=== PATIENT | female | born 1955 | race African-American/Black ===

== ENCOUNTER 2016-11-21 13:28 | Inpatient (IN) ==
[2016-11-21] MEDS ORDERED: metroNIDAZOLE INJ 500 MG in PREMIX 1 EACH IV STA (13:49)
[2016-11-21] MEDS ORDERED: ONDANSETRON ODT 4 MG TABLET PO STA (13:49)
[2016-11-21] MEDS ORDERED: SODIUM CHLORIDE 0.9% 500 ML IV STA (13:49)
[2016-11-21] MEDS ORDERED: MORPHINE 2 MG/1 ML SYRINGE IV STA (13:49)
[2016-11-21] MEDS ORDERED: LEVOFLOXACIN INJ 750 MG in PREMIX 1 EACH IV STA (13:49)
[2016-11-21] MEDS ORDERED: metroNIDAZOLE 500 MG/100 ML PREMIX IV ONE (13:54)
[2016-11-21] MEDS ORDERED: ONDANSETRON ODT 4 MG TABLET PO ONE (13:54)
[2016-11-21] MEDS ORDERED: MORPHINE 2 MG/1 ML SYRINGE ONE (13:55)
[2016-11-21 14:29] LABS: Basophils % 0.3 % (0.0-0.8); Eosinophils # 0.1 10*3/uL (0.0-0.87); Eosinophils % 0.8 % (0.00-10.9); Hematocrit 35.8 VOL% (35.7-47.0); Hemoglobin 12.3 GM/DL (12.0-16.0); Immature Granulocytes % 0.3 %; Immature Granulocytes Absolute 0.02 #; Lymphocytes # 1.2 10*3/uL (1.4-4.0); Mean Corpuscular HGB Conc 34.4 GM/DL (32-36); Mean Corpuscular Hemoglobin 29 PG (27-34); Mean Corpuscular Volume 83.8 FL (87-102); Mean Platelet Volume 9.8 FL (9.6-12.0); Monocytes # 0.9 10*3/uL (0.11-0.8); Monocytes % 10.6 % (1.7-12.7); Neutrophils # 5.9 10*3/uL (1.4-7.4); Platelet Count 233 T/CUMM (130-400); Red Blood Count 4.27 MC/CUMM (3.8-5.5); Red Cell Distribution Width 12.7 % (9.3-17.3)
[2016-11-21 14:40] LABS: Apearance,Urine CLOUDY (Clear); Bacteria,Urine Many /HPF (Few); Bilirubin,Urine Negative (Negative); Blood, Urine Moderate mg/dL (Negative); Glucose,Urine (UA) Negative (Negative); Ketones,Urine Negative (Negative); Nitrite,Urine Negative (Negative); Protein,Urine Negative; RBC,Urine 4 /HPF (0-4); Squamous Epithelial Cell,Urine Occasional /HPF (0-10); Urine Color Yellow (Yellow); Urine Specific Gravity 1.002 (1.001-1.035); Urine Urobilinogen < 2.0 EU/DL (0.2-1.0); WBC,Urine 13 /HPF (0-6)
[2016-11-21] MEDS ORDERED: LEVOFLOXACIN INJ 150 ML IV ONE (15:07)
--- NOTE | 2016-11-21 15:10 | Emergency Department Note ---
Stef Gauthier Brittany, am scribing for, and in the presence of, Alberto Serra MD 13:51. Ponce Gauthier Doug C, MD, personally performed the services described in this documentation, ascribed by Rimma Finch in my presence, and it is both accurate and complete [id number] . Arrival - Arrival Chief Complaint: Abdominal / Flank Pain Stated Complaint: abd pain ED Nursing Triage Note: C/o LLQ pain and N/V-onset 3 days ago. This is patient' s third ER visit in three days for same c/o. States "I just need to be admitted ". Mode of Arrival: Stretcher Limitations: No Limitations Source: Patient, Old Records Reviewed, RN Notes Reviewed Time Seen by Provider: 11/21/16 13:48 - History of Present Illness HPI Narrative: Patient is a 61-year-old white female comes to the emergency room by ambulance with complaint of abdominal pain. This is her third visit in 3 consecutive days with the same complaint. Patient states she has diverticulitis and she needs to be admitted to the hospital. She has not had any fever but states she has had chills. She denies any diarrhea and she has not had any blood in her stool. Patient states she was at work and the pain got so severe it drove her to her knees and they called the ambulance to bring her here. She was seen in nonurgent the 2 previous visits. She has not had any prior abdominal surgeries. She did have a CT scan of her abdomen 2 days ago. Onset (ago): day(s) (3) Consistency: intermittent Severity: moderate Severity scale (1-10): 6 Quality: other ("bubbling") Date of Last Menstrual Period: menopause Allergies/Adverse Reactions: Allergies Allergy/AdvReac Type Severity Reaction Status Date / Time haloperidol [From Haldol] Allergy MOUTH Verified 08/13/16 13:44 TWISTED TO THE SIDE Home Medications: Home Medications Medication Instructions Recorded Confirmed Type Ergocalciferol (Vitamin D2) 50,000 unit PO ALLEN 10/06/15 11/21/16 History [Vitamin D2] Multivitamin [Multivitamins] 1 tablet PO QAM 10/06/15 11/21/16 History Omeprazole Magnesium [Prilosec Otc] 20 mg PO QAM 10/06/15 11/21/16 History Fluticasone/Salmeterol 250-50 1 puff INH BID 02/16/16 11/21/16 History [Advair 250-50] HYDROcodone/ACETAMIN 10-325 [[place] 1 tablet PO Q4H PRN 02/16/16 11/21/16 History 10-325] Naproxen [Naprosyn Tab] 500 mg PO BID PRN 02/16/16 11/21/16 History Albuterol Inhaler [Proventil 2 puff INH Q6H PRN 08/13/16 11/21/16 History Inhaler] Polyethylene Glycol Powder 17 gm PO DAILY 08/13/16 11/21/16 History [Miralax] Promethazine Tab [Phenergan Tab] 25 mg PO Q4H PRN 08/13/16 11/21/16 History hydrOXYzine HCl [Hydroxyzine HCl] 25 mg PO TID PRN 08/13/16 11/21/16 History Ciprofloxacin Tab [Cipro Tab] 500 mg PO BID #20 tablet 11/19/16 11/21/16 Rx metroNIDAZOLE TAB [Flagyl Cap/Tab] 500 mg PO TID #30 tablet 11/19/16 11/21/16 Rx HYDROcodone/ACETAMIN 5-325 [[place] 1 tablet PO Q6H PRN #20 tablet 11/20/16 Rx 5-325] Ondansetron Tab [Zofran Tab] 4 mg PO Q6H #20 tablet 11/20/16 11/21/16 Rx Tizanidine HCl [Tizanidine HCl] 8 mg PO TID PRN 11/20/16 11/21/16 History Review of System - Review of System 12 point system: reviewed and no additional remarkable complaints except as stated - Review of System Constitutional: Present: chills. Absent: fever Eyes: Absent: vision change Head/Ears/Nose/Throat: Absent: nasal drainage, sore throat Respiratory: Absent: respiratory distress Cardiovascular: Absent: chest pain Gastrointestinal: Present: abdominal pain, nausea, vomiting. Absent: diarrhea, constipation, melena, hematochezia Genitourinary female: Absent: dysuria, frequency, urgency Musculoskeletal: Absent: arm pain, back pain, leg pain, neck pain Skin: Absent: rash Neurological: Absent: headache Psychiatric: Absent: anxiety, depression Hematological/Lymphatic: Absent: easy bleeding, easy bruising Medical,Surgical,& Family Hx - Medical History Psychological: History of: Anxiety Disorders, Bipolar Disorder HEENT: History of: Eye Problem (wears glasses), Dental Problems (WEAR UPPER FULL DENTURES) Respiratory: History of: Bronchitis, COPD Renal: History of: Renal Problems (CYST ON LEFT KIDNEY) Genitourinary: History of: Kidney Stones Gastrointestinal: History of: Diverticulitis/ Diverticulosis, GERD, Polyps Musculoskeletal: History of: Back/Neck Problems (BULGING DISC NECK AND BACK), Herniated Disk, Musculoskeletal Problems (SPURS ON SPINE, ARTHRITIS ON SPINE AND HIPS (BILATERAL),) No history of: Amputation Hematology: No history of: Anemia, Bleeding Problems, Clotting Problems, Sickle Cell Disease, Hematologic Cancer, Blood Disorders Other: History of: Miscellaneous Medical Problems (osteoporesis) - Surgical History Cardiac Surgeries: Patient Denies: Femoral-Popliteal Bypass Graft, Cardiac Catheterization, Cardiac Surgery, Carotid Endarterectomy, Internal Defibrillator, Vascular Access Devices Thoracic Surgeries: Patient denies;: Organ Transplant, Lobectomy Neurologic Surgeries: Patient denies: Neurologic Surgery HEENT Surgeries: Patient denies: Carotid Endarterectomy, Eye Surgery, Tonsilectomy & Adenoidectomy Abdominal Surgeries: Surgical HX of: Colonoscopy Patient denies: Abdominal Surgery, Appendectomy, Cholecystectomy, Gastric Bypass Surgery, EGD, Hernia Repair, Splenectomy Reproductive Surgeries: Patient denies;: Breast Surgery, Section, Dilation and Curettage, Genitourinary Surgery, Gynecologic Surgery, Hysterectomy, Tubal Ligation Orthopedic Surgeries: Patient denies;: Implanted Devices, Orthopedic Surgery, Spinal Surgery, Total Hip Replacement, Total Knee Replacement - Family History Family History: Reports;: Family Cancer (sister), Family Diabetes (FATHER), Family Hypertension - Social History Smoking Status: Current every day smoker Frequency of Alcohol Use: None Type of Drug Use: None Exam Vital Signs: Vital Signs Temperature 98.2 F 11/21/16 13:37 Pulse Rate 74 11/21/16 14:13 Respiratory Rate 18 11/21/16 14:13 Blood Pressure 112/74 11/21/16 14:13 O2 Sat by Pulse Oximetry 97 11/21/16 14:13 - General General appearance: alert, in distress (appears to be uncomfortable secondary to pain) - Head Head exam: Present: atraumatic, normocephalic, normal inspection - Eye Eye exam: Present: normal appearance, PERRL, EOMI - ENT ENT exam: Present: normal exam, normal oropharynx - Neck Neck exam: Present: normal inspection, full ROM, trachea midline - Chest Chest inspection: Present: normal inspection, symmetric chest wall rise - Respiratory Respiratory exam: Present: normal lung sounds bilaterally - Cardiovascular Cardiovascular exam: Present: regular rate, normal rhythm, normal heart sounds - Abdominal Exam Abdominal exam: Present: soft, tenderness (diffuse abdominal tenderness to palpation), rebound (rebound tenderness), normal bowel sounds. Absent: distention - Extremities Exam Extremities exam: Present: normal inspection - Back Exam Back exam: Present: normal inspection - Neurological Exam Neurological exam: Present: alert, oriented X3, CN II-XII intact. Absent: motor sensory deficit - Psychiatric Psychiatric exam: Present: normal affect, normal mood - Skin Skin exam: Present: warm, dry Course Course Narrative: Patient's clinical presentation, recent history and laboratory findings and previous radiographic findings were discussed with Rich who is covering for the hospitalist service. He will see the patient emergency room and evaluate for admission. Results - Labs CBC & BMP: 11/21/16 14:12 Lab Results: I have reviewed the patients labs Labs: Laboratory Tests 11/21/16 14:12 WBC 8.0 RBC 4.27 Hgb 12.3 Hct 35.8 MCV 83.8 L MCH 29 MCHC 34.4 RDW 12.7 Plt Count 233 MPV 9.8 Neut % (Auto) 73.0 Lymph % (Auto) 15.0 L [place] % (Auto) 10.6 Eos % (Auto) 0.8 Baso % (Auto) 0.3 Neut # (Auto) 5.9 Lymph # (Auto) 1.2 L [place] # (Auto) 0.9 H Eos # (Auto) 0.1 Baso # (Auto) 0.0 Immature Gran % 0.3 Nucleated RBC % 0.0 Immature Gran # 0.02 Nucleated RBCs # 0.00 Laboratory Tests 11/21/16 11/21/16 14:12 14:12 Lipase 113.0 Urine Color Yellow Urine Appearance Cloudy Urine pH 7.0 Ur Specific [place] 1.002 Urine Protein Negative Urine Glucose (UA) Negative Urine Ketones Negative Urine Blood Moderate Urine Nitrate Negative Urine Bilirubin Negative Urine Urobilinogen < 2.0 H Urine Leukocytes Moderate H Urine RBC 4 Urine WBC 13 Ur Squamous Epith Cells Occasional Urine Bacteria Many Laboratory Tests 11/21/16 14:12 Lactic Acid 1.0 Lipase 113.0 Disposition Clinical Impression: Diverticulitis Case discussed with: patient Disposition: Still a Patient Condition: Stable Time of Disposition: 15:09
[2016-11-21] MEDS ORDERED: MORPHINE 2 MG/1 ML SYRINGE IV PRN (15:47)
--- NOTE | 2016-11-21 16:04 | Hospitalist History & Physical ---
<Derrick Moore - Last Filed: 11/21/16 16:12> Assessment and Plan (1) History of diverticulitis of colon Status: Acute Assessment and plan: Admit for abdominal pain with suspected diverticulitis. Continue IV metronidazole. IV fluids. Obtain sed rate, CRP, renal function panel. Clear liquid diet. PPI therapy. Current Visit: No (2) COPD (chronic obstructive pulmonary disease) Status: Acute Assessment and plan: Continue bronchodilator. Current Visit: No (3) Nausea & vomiting Status: Acute Assessment and plan: IV hydration. Antiemetics. Current Visit: No (4) UTI (urinary tract infection) Status: Acute Assessment and plan: IV Levaquin. Urine cultures pending. Current Visit: Yes History of Present Illness Chief complaint: abdominal pain History of present illness: Ms. Palacios is a 61 year old -[place] female with a past medical history significant for diverticulitis, COPD, arthritis, herniated and bulging disks, GERD, and intestinal polyps who presents to the ED with complaints of abdominal pain x 3 days. The patient reports that she was diagnosed with diverticulitis several years ago and has had a total of 5 acute episodes since 2007. She has been seen in the ER for 3 consecutive nights and was sent home each time until today. She admits that she brought this upon herself by not watching her diet. She notes that on Wednesday she was invited to a friend's home for dinner and ate some corn. She later fried some shrimp in corn meal and also had a bit of lettuce on a sandwich this week. She reports that she has been experiencing left lower quadrant pain since . She was treated with IV Flagyl in the ED and sent home on oral Flagyl and a clear liquid diet. She subsequently reports nausea and vomiting associated with the medication. She admits to having alternating chills and sweats, nausea/vomiting, periumbilical and LLQ pain which she describes as "crampy" and her "stomach balled up in a knot" and rates it as a 10+/10. She states that the pain is so great when she needs to make a BM that she "drops to the floor". The pain subsides after her bowels move. She denies headache, chest pain, numbness/tingling, syncopal episodes, edema. The patient is followed by Dr. Morales (PCP) and Dr. Mitchell Espinosa (GI at [facility]) and last had a colonoscopy in May 2016. She reports an extensive history of polyps including several large polyps that may require surgical resection. She notes that this diverticulitis pain is so great that, if surgery is required, she will agree to it despite her fear of surgeries. Labs on this admission include: WBC 8.0, Hgb 12.3, Hct 35.8, lactic acid 1.0, lipase 113. UA reveals moderate urine leukocytes with UC results to follow. Abdominal CT from 11/19/2016 is consistent with sigmoid colon without perforation or abscess. After discussion with Dr. Polanco, admitting physician, the patient will be admitted to the hospital medicine service for further evaluation and treatment. She is does not have an advanced directive on file, is coherent and serves as her own healthcare proxy. She is a full code. Home medications have been reviewed and reconciled. Home Medications Medication Instructions Recorded Confirmed Type Ergocalciferol (Vitamin D2) 50,000 unit PO ALLEN 10/06/15 11/21/16 History [Vitamin D2] Multivitamin [Multivitamins] 1 tablet PO QAM 10/06/15 11/21/16 History Omeprazole Magnesium [Prilosec Otc] 20 mg PO QAM 10/06/15 11/21/16 History Fluticasone/Salmeterol 250-50 1 puff INH BID 02/16/16 11/21/16 History [Advair 250-50] HYDROcodone/ACETAMIN 10-325 [[place] 1 tablet PO Q4H PRN 02/16/16 11/21/16 History 10-325] Naproxen [Naprosyn Tab] 500 mg PO BID PRN 02/16/16 11/21/16 History Albuterol Inhaler [Proventil 2 puff INH Q6H PRN 08/13/16 11/21/16 History Inhaler] Polyethylene Glycol Powder 17 gm PO DAILY 08/13/16 11/21/16 History [Miralax] Promethazine Tab [Phenergan Tab] 25 mg PO Q4H PRN 08/13/16 11/21/16 History hydrOXYzine HCl [Hydroxyzine HCl] 25 mg PO TID PRN 08/13/16 11/21/16 History Ciprofloxacin Tab [Cipro Tab] 500 mg PO BID #20 tablet 11/19/16 11/21/16 Rx metroNIDAZOLE TAB [Flagyl Cap/Tab] 500 mg PO TID #30 tablet 11/19/16 11/21/16 Rx HYDROcodone/ACETAMIN 5-325 [[place] 1 tablet PO Q6H PRN #20 tablet 11/20/16 Rx 5-325] Ondansetron Tab [Zofran Tab] 4 mg PO Q6H #20 tablet 11/20/16 11/21/16 Rx Tizanidine HCl [Tizanidine HCl] 8 mg PO TID PRN 11/20/16 11/21/16 History Allergies Allergy/AdvReac Type Severity Reaction Status Date / Time haloperidol [From Haldol] Allergy MOUTH Verified 08/13/16 13:44 TWISTED TO THE SIDE Medical,Surgical,& Family Hx - Medical History Psychological: History of: Anxiety Disorders, Bipolar Disorder HEENT: History of: Eye Problem (wears glasses), Dental Problems (WEAR UPPER FULL DENTURES) Respiratory: History of: Bronchitis, COPD Renal: History of: Renal Problems (CYST ON LEFT KIDNEY) Genitourinary: History of: Kidney Stones Gastrointestinal: History of: Diverticulitis/ Diverticulosis, GERD, Polyps Musculoskeletal: History of: Back/Neck Problems (BULGING DISC NECK AND BACK), Herniated Disk, Musculoskeletal Problems (SPURS ON SPINE, ARTHRITIS ON SPINE AND HIPS (BILATERAL),) No history of: Amputation Hematology: No history of: Anemia, Bleeding Problems, Clotting Problems, Sickle Cell Disease, Hematologic Cancer, Blood Disorders Other: History of: Miscellaneous Medical Problems (osteoporesis) - Surgical History Cardiac Surgeries: Patient Denies: Femoral-Popliteal Bypass Graft, Cardiac Catheterization, Cardiac Surgery, Carotid Endarterectomy, Internal Defibrillator, Vascular Access Devices Thoracic Surgeries: Patient denies;: Organ Transplant, Lobectomy Neurologic Surgeries: Patient denies: Neurologic Surgery HEENT Surgeries: Patient denies: Carotid Endarterectomy, Eye Surgery, Tonsilectomy & Adenoidectomy Abdominal Surgeries: Surgical HX of: Colonoscopy Patient denies: Abdominal Surgery, Appendectomy, Cholecystectomy, Gastric Bypass Surgery, EGD, Hernia Repair, Splenectomy Reproductive Surgeries: Patient denies;: Breast Surgery, Section, Dilation and Curettage, Genitourinary Surgery, Gynecologic Surgery, Hysterectomy, Tubal Ligation Orthopedic Surgeries: Patient denies;: Implanted Devices, Orthopedic Surgery, Spinal Surgery, Total Hip Replacement, Total Knee Replacement - Family History Family History: Reports;: Family Cancer (sister), Family Diabetes (FATHER), Family Hypertension - Social History Smoking Status: Current every day smoker (8-10 cigarettes daily. Has taken steps with [facility] to stop smoking.) Time spent discussing smoking cessation with patient: 3 to 10 minutes (5 min spent discussing smoking cessation. Patient has initiated conversation with [facility] to take steps towards quitting.) Frequency of Alcohol Use: None Type of Drug Use: None Marital Status: Lives With:: Spouse Functional capacity: independent ambulation - Constitutional Constitutional: Present: chills, excessive sweating. Absent: fatigue, headache( s) - EENT Eyes: Absent: blurry vision, loss of vision Ears: Absent: decreased hearing, ear pain Nose, mouth and throat: Absent: nasal congestion, sinus pressure, sore throat, vertigo - Cardiovascular Cardiovascular: Absent: chest pain at rest, chest pain with activity, claudication, edema - Respiratory Respiratory: Absent: cough, dyspnea, dyspnea on exertion - Gastrointestinal Gastrointestinal: Present: abdominal pain, change in bowel habits, cramping, nausea, vomiting. Absent: diarrhea, melena - Genitourinary Genitourinary: Present: dysuria. Absent: hematuria - Musculoskeletal Musculoskeletal: Present: arthralgias, back pain - Neurological Neurological: Absent: abnormal gait, abnormal speech, confusion, dizziness, numbness, syncope - Psychiatric Psychiatric: Absent: anxiety, depression - Endocrine Endocrine: Absent: cold intolerance, heat intolerance - Hematologic/Lymphatic Hematologic/Lymphatic: Absent: easy bleeding, easy bruising Exam - Constitutional Vitals: Period Temp Pulse Resp BP Sys/Page Pulse Ox Last 24 Hr 98.2 F-98.2 F 74-81 16-18 112-119/70-74 97-97 General appearance: no acute distress, morbidly obese - Head Head exam: Present: normal inspection, normocephalic, atraumatic - Eye Eye exam: Present: EOMI Pupils: Present: SRINIVASAN - ENT ENT exam: Present: normal exam, normal external ear exam - Neck Neck exam: Present: normal inspection. Absent: lymphadenopathy, tenderness, thyromegaly - Respiratory Respiratory exam: Present: clear to auscultation bilaterally. Absent: rales, rhonchi, wheezes - Cardiovascular Cardiovascular exam: Present: regular rate and rhythm. Absent: carotid bruit, gallop, rubs - GI/Abdominal GI/Abdominal exam: Present: normal bowel sounds, distended. Absent: mass, organomegaly, tenderness - Extremities Exam Extremities exam: Present: normal inspection, normal capillary refill. Absent: edema - Neurological Exam Neurological exam: Present: alert, oriented X3, CN II-XII intact, reflexes normal - Psychiatric Psychiatric exam: Present: normal affect, normal mood - Skin Skin exam: Present: normal color, warm, dry Results - Labs CBC & BMP: 11/21/16 14:12 11/21/16 14:12 Lab Results: I have reviewed the past 24 hour labs - Diagnostic Findings Procedure: CT Abdomen and Pelvis: image reviewed by me, report reviewed by me ( diverticulitis) <Mere Polanco - Last Filed: 11/21/16 16:26> History of Present Illness History of present illness: PCP: Dr. Nash Gamez GI: Dr. Mitchell Espinosa Surgery: Dr. Mesa CC: abd pain x 3 days HPI: Pt is a 61 year old female with a history of diverticulosis and 5 episodes of diverticulitis (Last 2 were September 2015 and Jan) who presented to the hospital with a chief complaint of moderate intermittent LLQ and suprapubic intermittent cramping abdominal pain x 3 days. She denies radiation. Pt reports she came to the ER and had a CT scan of abdomen /pelvis suggesting diverticulitis was given IVF, IV pain meds and was started on Flagyl po. She was unable to keep Flagyl ingested due to recurrent nausea and vomiting, so she returned to ER 11/20. She was given a po challenge and passed and sent home. She returned 11/21 due to intractable, nausea, vomiting and worsening abdominal pain. Today, she reports chills without known fever. She does report feeling discomfort when she urinates and increase in pain in her LLQ when she defecates. Last BM was today and she reports a small thin bowel movement. No melena, BRBPR or mucus. She reports decreased appetite. She reports when she noticed she was unable to keep anything down, she decided to come to the ER for further evaluation and treatment. We were asked to admit for further evaluation and treatment. Currently, pt is pain free. PMH: as noted above, plus herniated/ bulging vertebrae, DJD hip and lower back, COPD, osteopenia, endometriosis, post-menopause, insomnia, GERD, multiple colonic polpys, fracture of left 5th digit PSH: Denies MEDS: Advair 250/50 1 puff BID, Vitamin D 50,000 U po qweek, Prilosec 20mg po daily, Pomerene 10/325mg po daily prn pain ALL: Haldol- dystonic reaction FH: Mother- NE; Father- [place]; Sister- female reproductive malignancy SH: 1/2 ppd x 15 years. Denies alcohol or illicit drug use. . Full code Meds reviewed and reconciled. Vitals: 98.2 125/76. 74. 18 99% RA GEN: Pt is awake, alert and oriented x 3, NAD HEENT: PERRL, EOMI, sclera clear, conjunctiva pink, nares patent. No discharge or epistaxis noted. O/P clear with slightly dry oral mucosa NECK: supple, no JVD. No LAD CV: RRR normal S1/S2 no M/R/G LUNGS: CTAB nonlabored ABD: Soft, NT, ND, +BS EXT: Warm no c/c/e NEURO: nonfocal Labs/investigative studies reviewed. A/P: 1. Mild acute diverticulitis 2. Mild clinical dehydration 3. Abdominal pain 4. COPD with ongoing tobacco use 5. GERD Admit to the hospitalist Clear liquid diet and advance as tolerated IV Levaquin and Flagyl IV Morphine/ po Pomerene as needed IVF Check inflammatory markers. Check RFP Resume inhalers. Smoking cessation recommended PPI Recheck labs in am DVT prophylaxis- Lovenox Further plans to follow as clinical course dictates. I will be away several days. One of my associates will follow in my absence. Exam - Constitutional Vitals: Period Temp Pulse Resp BP Sys/Page Pulse Ox Last 24 Hr 97.9 F-98.2 F 69-81 16-18 112-132/70-83 96-99 Results - Labs CBC & BMP: 11/21/16 14:12 11/21/16 14:12
[2016-11-21 16:06] LABS: Albumin 3.8 G/DL (3.4-5.0); Calcium 9.1 MG/DL (8.5-10.1); Osmolality,Calculated 278.4 MOS/KG (273-304); Phosphorous 3.3 MG/DL (2.5-4.9); Potassium 3.6 MMOL/L (3.5-5.1)
[2016-11-21] MEDS: ENOXAPARIN 40 MG/0.4 ML SYRINGE SUBCUT SCH (16:50)
[2016-11-21] MEDS ORDERED: ERGOCALCIFEROL 50,000 UNIT CAPSULE PO SCH (21:00)
[2016-11-21] MEDS: FLUTICASONE/SALMETEROL 250-50 DISKUS 14 DOSE INH SCH (21:39)
[2016-11-21] MEDS: ONDANSETRON 4 MG/2 ML VIAL IV PRN (21:40)
[2016-11-21] MEDS: metroNIDAZOLE INJ 500 MG in PREMIX 1 EACH IV SCH (22:02)
[2016-11-22] MEDS: ONDANSETRON 4 MG/2 ML VIAL IV PRN ×2 (03:46→20:12)
[2016-11-22] MEDS: metroNIDAZOLE INJ 500 MG in PREMIX 1 EACH IV SCH ×3 (05:14→21:59)
[2016-11-22 06:10] LABS: Albumin 3.3 G/DL (3.4-5.0); Calcium 8.6 MG/DL (8.5-10.1); Osmolality,Calculated 280.3 MOS/KG (273-304); Phosphorous 3.4 MG/DL (2.5-4.9); Potassium 4.1 MMOL/L (3.5-5.1)
--- NOTE | 2016-11-22 07:44 | Hospitalist Progress Note ---
Assessment and Plan (1) Diverticulitis Status: Acute Current Visit: Yes Qualifiers: Diverticulitis site: large intestine Diverticulitis bleeding: without bleeding Diverticulitis complication: without perforation or abscess Qualified Code(s): K57.32 - Diverticulitis of large intestine without perforation or abscess without bleeding (2) Bipolar 1 disorder Status: Chronic Current Visit: No (3) COPD (chronic obstructive pulmonary disease) Status: Chronic Assessment and plan: -Make the patient n.p.o. this morning due to persistent vomiting -Continue current antibiotics with Flagyl and Levaquin -Surgery consult for assistance with management, will follow the recommendations Current Visit: No Qualifiers: COPD type: unspecified COPD Qualified Code(s): J44.9 - Chronic obstructive pulmonary disease, unspecified Hospitalist: Subjective Interval history: The patient is a 61-year-old female admitted to the hospital with acute diverticulitis that is unresponsive to outpatient antibiotic therapy. The patient reports her abdominal pain has improved this morning. However, she continues to complain of nausea and vomiting today. She denies any chest pain, melena or diarrhea. Exam - Constitutional Vitals: Period Temp Pulse Resp BP Sys/Page Pulse Ox Last 24 Hr 97.1 F-98.7 F 69-81 16-22 100-152/56-83 94-99 General appearance: morbidly obese - Head Head exam: Present: normal inspection, normocephalic - Eye Eye exam: Present: EOMI Pupils: Present: SRINIVASAN - ENT ENT exam: Present: normal exam, normal oropharynx - Neck Neck exam: Present: normal inspection - Respiratory Respiratory exam: Present: clear to auscultation bilaterally. Absent: rales, rhonchi, wheezes - Cardiovascular Cardiovascular exam: Present: regular rate and rhythm. Absent: irregular rhythm , systolic murmur, tachycardia - GI/Abdominal GI/Abdominal exam: Present: hypoactive bowel sounds, tenderness (Tenderness of the left lower quadrant, no guarding noted), soft - Extremities Exam Extremities exam: Present: normal inspection. Absent: edema - Neurological Exam Neurological exam: Present: alert, oriented X3 - Psychiatric Psychiatric exam: Present: normal affect, normal mood - Skin Skin exam: Present: normal color Results - Labs CBC & BMP: 11/21/16 14:12 11/22/16 05:24 Lab Results: I have reviewed the past 24 hour labs
[2016-11-22] MEDS ORDERED: HYDROmorphone 2 MG/1 ML VIAL IV PRN (08:18)
--- NOTE | 2016-11-22 09:11 | General Surgery Consult Note ---
Assessment and Plan (1) Diverticulitis Status: Acute Assessment and plan: This patient has recurrent uncomplicated diverticulitis of the descending and sigmoid colon. I agree with current antibiotics and management. The patient will benefit from elective resection after she has recovered from her acute illness. I will continue to follow her while she is here and if we can clear up this current infection I had like to try to delay her operation for about 6 weeks to let all the inflammation calm down make it more likely that she will be able to be hooked back up and not have a colostomy. This was discussed in detail with the patient. Current Visit: Yes Qualifiers: Diverticulitis site: large intestine Diverticulitis bleeding: without bleeding Diverticulitis complication: without perforation or abscess Qualified Code(s): K57.32 - Diverticulitis of large intestine without perforation or abscess without bleeding History of Present Illness Chief complaint: Abdominal pain History of present illness: Ms. Palacios is a 61 year old female with a history of recurrent descending and sigmoid diverticulitis admitted to the hospital with recurrence of her left lower quadrant abdominal pain. She has been having pain for several days and went home from the ER on several occasions but eventually got admitted when she represented by ambulance. She has no fever and her white blood cell count is normal but her CT scan shows some thickening in her mesentery and inflammation around her sigmoid colon. She has no perforation or abscess. Her last episode was in January 2016. She had a colonoscopy done at [facility] in May which showed a lot of polyp disease but no malignancy per the patient. Home Medications Medication Instructions Recorded Confirmed Type Ergocalciferol (Vitamin D2) 50,000 unit PO ALLEN 10/06/15 11/21/16 History [Vitamin D2] Multivitamin [Multivitamins] 1 tablet PO QAM 10/06/15 11/21/16 History Omeprazole Magnesium [Prilosec Otc] 20 mg PO QAM 10/06/15 11/21/16 History Fluticasone/Salmeterol 250-50 1 puff INH BID 02/16/16 11/21/16 History [Advair 250-50] HYDROcodone/ACETAMIN 10-325 [[place] 1 tablet PO Q4H PRN 02/16/16 11/21/16 History 10-325] Naproxen [Naprosyn Tab] 500 mg PO BID PRN 02/16/16 11/21/16 History Albuterol Inhaler [Proventil 2 puff INH Q6H PRN 08/13/16 11/21/16 History Inhaler] Polyethylene Glycol Powder 17 gm PO DAILY 08/13/16 11/21/16 History [Miralax] Promethazine Tab [Phenergan Tab] 25 mg PO Q4H PRN 08/13/16 11/21/16 History hydrOXYzine HCl [Hydroxyzine HCl] 25 mg PO TID PRN 08/13/16 11/21/16 History metroNIDAZOLE TAB [Flagyl Cap/Tab] 500 mg PO TID #30 tablet 11/19/16 11/21/16 Rx HYDROcodone/ACETAMIN 5-325 [[place] 1 tablet PO Q6H PRN #20 tablet 11/20/16 Rx 5-325] Ondansetron Tab [Zofran Tab] 4 mg PO Q6H #20 tablet 11/20/16 11/21/16 Rx Tizanidine HCl [Tizanidine HCl] 8 mg PO TID PRN 11/20/16 11/21/16 History Allergies Allergy/AdvReac Type Severity Reaction Status Date / Time ciprofloxacin Allergy HIVES Verified 11/21/16 16:29 haloperidol [From Haldol] Allergy MOUTH Verified 08/13/16 13:44 TWISTED TO THE SIDE Medical,Surgical,& Family Hx - Medical History Psychological: History of: Anxiety Disorders, Bipolar Disorder HEENT: History of: Eye Problem (wears glasses), Dental Problems (WEAR UPPER FULL DENTURES) Respiratory: History of: Bronchitis, COPD Renal: History of: Renal Problems (CYST ON LEFT KIDNEY) Genitourinary: History of: Kidney Stones Gastrointestinal: History of: Diverticulitis/ Diverticulosis, GERD, Polyps Musculoskeletal: History of: Back/Neck Problems (BULGING DISC NECK AND BACK), Herniated Disk, Musculoskeletal Problems (SPURS ON SPINE, ARTHRITIS ON SPINE AND HIPS (BILATERAL),) No history of: Amputation Hematology: No history of: Anemia, Bleeding Problems, Clotting Problems, Sickle Cell Disease, Hematologic Cancer, Blood Disorders Other: History of: Miscellaneous Medical Problems (osteoporesis) - Surgical History Cardiac Surgeries: Patient Denies: Femoral-Popliteal Bypass Graft, Cardiac Catheterization, Cardiac Surgery, Carotid Endarterectomy, Internal Defibrillator, Vascular Access Devices Thoracic Surgeries: Patient denies;: Organ Transplant, Lobectomy Neurologic Surgeries: Patient denies: Neurologic Surgery HEENT Surgeries: Patient denies: Carotid Endarterectomy, Eye Surgery, Tonsilectomy & Adenoidectomy Abdominal Surgeries: Surgical HX of: Colonoscopy Patient denies: Abdominal Surgery, Appendectomy, Cholecystectomy, Gastric Bypass Surgery, EGD, Hernia Repair, Splenectomy Reproductive Surgeries: Patient denies;: Breast Surgery, Section, Dilation and Curettage, Genitourinary Surgery, Gynecologic Surgery, Hysterectomy, Tubal Ligation Orthopedic Surgeries: Patient denies;: Implanted Devices, Orthopedic Surgery, Spinal Surgery, Total Hip Replacement, Total Knee Replacement - Family History Family History: Reports;: Family Cancer (sister), Family Diabetes (FATHER), Family Hypertension - Social History Smoking Status: Current every day smoker (8-10 cigarettes daily. Has taken steps with [facility] to stop smoking.) Frequency of Alcohol Use: None Type of Drug Use: None - Constitutional Constitutional: Present: as per HPI - EENT Nose, mouth and throat: Present: as per HPI - Cardiovascular Cardiovascular: Present: as per HPI - Respiratory Respiratory: Present: as per HPI - Gastrointestinal Gastrointestinal: Present: as per HPI - Genitourinary Genitourinary: Present: as per HPI - Musculoskeletal Musculoskeletal: Present: as per HPI - Neurological Neurological: Present: as per HPI - Endocrine Endocrine: Present: as per HPI Hematologic/Lymphatic: Present: as per HPI Exam - Constitutional Vitals: Period Temp Pulse Resp BP Sys/Page Pulse Ox Last 24 Hr 97.1 F-98.7 F 67-81 16-22 100-152/56-83 94-99 General appearance: no acute distress, morbidly obese - Head Head exam: Present: normal inspection, normocephalic - Eye Eye exam: Present: EOMI Pupils: Present: SRINIVASAN - ENT ENT exam: Present: normal exam Mouth exam: Present: normal external inspection, normal voice - Neck Neck exam: Present: normal inspection, trachea midline - Respiratory Respiratory exam: Present: clear to auscultation bilaterally. Absent: accessory muscle use, chest wall tenderness - Cardiovascular Cardiovascular exam: Present: RRR. Absent: systolic murmur, tachycardia - GI/Abdominal GI/Abdominal exam: Present: normal bowel sounds, tenderness (Focal tenderness in the left lower quadrant. No peritoneal signs.), soft. Absent: rebound - Extremities Exam Extremities exam: Present: normal inspection, normal capillary refill - Back Exam Back exam: Present: normal inspection - Neurological Exam Neurological exam: Present: alert, oriented X3 Speech: Present: normal - Skin Skin exam: Present: normal color, warm Results - Labs CBC & BMP: 11/21/16 14:12 11/22/16 05:24 - Diagnostic Findings Procedure: CT Abdomen and Pelvis: image reviewed by me, report reviewed by me ( Acute sigmoid diverticulitis with no abscess or free air)
[2016-11-22] MEDS: SODIUM CHLORIDE 0.9% 1,000 ML IV SCH ×2 (09:39→20:11)
[2016-11-22] MEDS: PANTOPRAZOLE 40 MG TABLET PO SCH (09:40)
[2016-11-22] MEDS: FLUTICASONE/SALMETEROL 250-50 DISKUS 14 DOSE INH SCH ×2 (09:41→20:15)
[2016-11-22] MEDS: cefTRIAXone 1,000 MG in SODIUM CHLORIDE 0.9% 100 ML IV SCH (11:52)
[2016-11-22] MEDS ORDERED: LEVOFLOXACIN INJ 500 MG in PREMIX 1 EACH IV SCH (15:00)
[2016-11-22] MEDS: ENOXAPARIN 40 MG/0.4 ML SYRINGE SUBCUT SCH (15:16)
[2016-11-23] MEDS: ONDANSETRON 4 MG/2 ML VIAL IV PRN ×3 (02:33→16:29)
[2016-11-23] MEDS: SODIUM CHLORIDE 0.9% 1,000 ML IV SCH ×3 (05:40→21:35)
[2016-11-23] MEDS: metroNIDAZOLE INJ 500 MG in PREMIX 1 EACH IV SCH (05:41)
[2016-11-23] MEDS: FLUTICASONE/SALMETEROL 250-50 DISKUS 14 DOSE INH SCH ×2 (08:38→20:15)
[2016-11-23] MEDS: PANTOPRAZOLE 40 MG TABLET PO SCH (08:38)
[2016-11-23] MEDS: cefTRIAXone 1,000 MG in SODIUM CHLORIDE 0.9% 100 ML IV SCH (08:38)
--- NOTE | 2016-11-23 08:38 | Hospitalist Progress Note ---
Assessment and Plan (1) Diverticulitis Status: Acute Assessment and plan: Impression: 1. Diverticulitis Plan: Continue current care. She is going to avoid opioids and see if her nausea improves. Continue liquids for now. Consider discharge in the next day or so. This note was completed using [employer] voice recognition software. There may be director staffing errors as a result. Current Visit: No Qualifiers: Diverticulitis site: large intestine Diverticulitis bleeding: without bleeding Diverticulitis complication: without perforation or abscess Qualified Code(s): K57.32 - Diverticulitis of large intestine without perforation or abscess without bleeding Hospitalist: Subjective Interval history: Follow-up diverticulitis. The patient complains of some back pain and nausea. She thinks that the nausea might be related to the opioids she is using. She reports flatus and stool, but is not yet ready to advance her diet. Her abdominal pain is improved. She does not think that she is ready to go home yet. Exam - Constitutional Vitals: Period Temp Pulse Resp BP Sys/Page Pulse Ox Last 24 Hr 97.2 F-98.5 F 72-89 18-20 92-144/56-80 91-97 Vital signs are noted above. Heart is regular with no murmur or gallop. Lungs are clear with no rales or wheezes. Abdomen is protuberant without significant tenderness or mass. Results - Labs CBC & BMP: 11/21/16 14:12 11/22/16 05:24
[2016-11-23] MEDS ORDERED: tiZANidine 4 MG TABLET PO PRN (08:42)
[2016-11-23] MEDS ORDERED: hydrOXYzine HCL 25 MG TABLET PO PRN (08:42)
[2016-11-23] MEDS ORDERED: NON-FORMULARY MEDICATION (Omeprazole Magnesium [Prilosec Otc] 20 MG) PO SCH (09:00)
[2016-11-23] MEDS: POLYETHYLENE GLYCOL POWDER 17 GM PACK PO SCH (09:25)
[2016-11-23] MEDS ORDERED: POLYETHYLENE GLYCOL POWDER 17 GM PACK PO SCH (09:30)
[2016-11-23] MEDS ORDERED: ALBUTEROL 2.5 MG/3 ML NEB RESP TX PRN (09:30)
--- NOTE | 2016-11-23 11:10 | General Surgery Progress Note ---
Assessment and Plan (1) Diverticulitis Status: Acute Assessment and plan: The patient is having some nausea. She had this difficulty with Flagyl in the past but responded well to Augmentin. I am going to discontinue her IV antibiotics and place her back on Augmentin. Continue to follow in the meantime. I will advance her to a low fiber diet as well. Current Visit: Yes Qualifiers: Diverticulitis site: large intestine Diverticulitis bleeding: without bleeding Diverticulitis complication: without perforation or abscess Qualified Code(s): K57.32 - Diverticulitis of large intestine without perforation or abscess without bleeding Subjective Patient reports: Present: no new complaints, feels better, still having pain, pain is less, nausea, vomiting, afebrile Narrative: The patient had a little bit of emesis yesterday after some liquids but she feels hungry today. She is passing gas and having bowel movements. Exam - Constitutional Vitals: Period Temp Pulse Resp BP Sys/Page Pulse Ox Last 24 Hr 97.2 F-98.5 F 72-85 18-20 92-144/56-80 93-97 General appearance: no acute distress, over weight - Head Head exam: Present: normal inspection, normocephalic - Eye Eye exam: Present: EOMI. Absent: scleral icterus Pupils: Present: SRINIVASAN - ENT ENT exam: Present: normal exam Mouth exam: Present: normal external inspection, normal voice - Neck Neck exam: Present: normal inspection, trachea midline - Respiratory Respiratory exam: Present: clear to auscultation bilaterally. Absent: accessory muscle use, chest wall tenderness - Cardiovascular Cardiovascular exam: Present: RRR. Absent: systolic murmur, tachycardia - GI/Abdominal GI/Abdominal exam: Present: normal bowel sounds, tenderness (Minimal left lower quadrant tenderness less than yesterday.), soft - Extremities Exam Extremities exam: Present: normal inspection, normal capillary refill - Back Exam Back exam: Present: normal inspection - Neurological Exam Neurological exam: Present: alert, oriented X3 Speech: Present: normal - Skin Skin exam: Present: normal color, warm Results - Labs CBC & BMP: 11/21/16 14:12 11/22/16 05:24 Specialty Discharge - Follow Up or Referrals Follow up with: Freddy Mesa MD [Physician] - 2 Weeks
[2016-11-23] MEDS: PROMETHAZINE 25 MG/1 ML VIAL IM PRN ×2 (12:25→20:25)
[2016-11-23] MEDS: AMOXICILLIN/CLAV 875 MG TABLET PO SCH ×2 (12:25→20:15)
[2016-11-23] MEDS: ENOXAPARIN 40 MG/0.4 ML SYRINGE SUBCUT SCH (20:15)
[2016-11-24] MEDS: SODIUM CHLORIDE 0.9% 1,000 ML IV SCH ×3 (05:32→20:57)
--- NOTE | 2016-11-24 07:29 | General Surgery Progress Note ---
Assessment and Plan (1) Diverticulitis Status: Acute Assessment and plan: Continue diet as tolerated. Continue Augmentin. Chest x-ray today for cough with pleuritic-type chest pain posterior chest wall on the left side. Discharge home tomorrow if doing well with Augmentin. The patient will benefit from elective sigmoid colectomy. For recurrent diverticulitis Current Visit: Yes Qualifiers: Diverticulitis site: large intestine Diverticulitis bleeding: without bleeding Diverticulitis complication: without perforation or abscess Qualified Code(s): K57.32 - Diverticulitis of large intestine without perforation or abscess without bleeding Subjective Patient reports: Present: no new complaints, feels better, pain is less, afebrile. Absent: nausea, vomiting Narrative: The patient feels better after switching to Augmentin although she skipped her dose last night she had nothing on her stomach. She feels better this morning and wants to try to eat. She is complaining of some nonproductive cough and left sided posterior chest wall pain. Exam - Constitutional Vitals: Period Temp Pulse Resp BP Sys/Page Pulse Ox Last 24 Hr 97.6 F-99.1 F 73-82 18-20 95-140/55-80 93-97 General appearance: no acute distress, over weight - Head Head exam: Present: normal inspection, normocephalic - Eye Eye exam: Present: EOMI Pupils: Present: SRINIVASAN - ENT ENT exam: Present: normal exam Mouth exam: Present: normal external inspection, normal voice - Neck Neck exam: Present: normal inspection, trachea midline - Respiratory Respiratory exam: Present: clear to auscultation bilaterally. Absent: accessory muscle use, chest wall tenderness - Cardiovascular Cardiovascular exam: Present: RRR. Absent: systolic murmur, tachycardia - GI/Abdominal GI/Abdominal exam: Present: soft. Absent: tenderness, rebound - Extremities Exam Extremities exam: Present: normal inspection, normal capillary refill - Back Exam Back exam: Present: normal inspection - Neurological Exam Neurological exam: Present: alert, oriented X3 Speech: Present: normal - Skin Skin exam: Present: normal color, warm Results - Labs CBC & BMP: 11/21/16 14:12 11/22/16 05:24 Specialty Discharge - Follow Up or Referrals Follow up with: Freddy Mesa MD [Physician] - 12/14/16 2:15 pm
--- NOTE | 2016-11-24 08:21 | XRay Report ---
XR chest 2V Indication: Cough, chest pain Comparison: Chest x-ray dated August 13, 2016 Technique: Frontal and lateral views of the chest. Findings: The cardiomediastinal silhouette is stable in configuration. Chronic change of the lungs without focal consolidation, pleural effusion, or pneumothorax. Visualized osseous and surrounding soft tissue structures appear grossly unchanged. IMPRESSION: Stable chest x-ray without acute cardiopulmonary process demonstrated. PROCEDURE INTERPRETED AT [facility] DEPARTMENT OF RADIOLOGY Final Report Signed by: Dr August Olivarez
[2016-11-24] MEDS: FLUTICASONE/SALMETEROL 250-50 DISKUS 14 DOSE INH SCH ×2 (11:03→21:06)
[2016-11-24] MEDS: PANTOPRAZOLE 40 MG TABLET PO SCH (11:05)
[2016-11-24] MEDS: POLYETHYLENE GLYCOL POWDER 17 GM PACK PO SCH (11:09)
--- NOTE | 2016-11-24 11:11 | Hospitalist Progress Note ---
Assessment and Plan (1) Diverticulitis Status: Acute Assessment and plan: Impression: 1. Diverticulitis Plan: Continue current care. Nausea is better. We will plan on discharge in the morning. This note was completed using [employer] voice recognition software. There may be engineering leader errors as a result. Current Visit: No Qualifiers: Diverticulitis site: large intestine Diverticulitis bleeding: without bleeding Diverticulitis complication: without perforation or abscess Qualified Code(s): K57.32 - Diverticulitis of large intestine without perforation or abscess without bleeding Hospitalist: Subjective Interval history: Follow-up diverticulitis. The patient says that she is finally starting to feel better. She is having less abdominal pain. She is tolerating liquids. She has discussed surgery with Dr. Mesa, and is tentatively looking at partial colon resection next month. Exam - Constitutional Vitals: Period Temp Pulse Resp BP Sys/Page Pulse Ox Last 24 Hr 97.6 F-99.1 F 72-82 18-20 95-140/55-80 93-97 Vital signs are noted above. Heart is regular with no murmur or gallop. Lungs are clear with no rales or wheezes. Abdomen is soft with good bowel sounds and no significant tenderness. This is improved from yesterday. She is awake and alert Results - Labs CBC & BMP: 11/21/16 14:12 11/22/16 05:24 Specialty Discharge - Follow Up or Referrals Follow up with: Freddy Mesa MD [Physician] - 12/14/16 2:15 pm
[2016-11-24] MEDS: AMOXICILLIN/CLAV 875 MG TABLET PO SCH ×2 (11:13→21:06)
[2016-11-24] MEDS: PROMETHAZINE 25 MG/1 ML VIAL IM PRN (12:30)
[2016-11-24] MEDS: ENOXAPARIN 40 MG/0.4 ML SYRINGE SUBCUT SCH (20:56)
[2016-11-25] MEDS: PROMETHAZINE 25 MG/1 ML VIAL IM PRN (01:18)
[2016-11-25] MEDS: SODIUM CHLORIDE 0.9% 1,000 ML IV SCH (05:28)
[2016-11-25 08:07] VITALS: BP 138/86
--- NOTE | 2016-11-25 08:15 | Discharge Summary ---
Hospital Course - Hospital Course Hospital Course: Discharge diagnosis: 1. Acute diverticulitis The patient presented to the hospital for evaluation of abdominal pain. She was found to have acute diverticulitis. She was treated with IV antibiotics and GI rest. She was slow to improve, but eventually did improve, and was able to tolerate a regular diet. She is now being discharged home. She is agreeable with following up with surgery in the next couple of weeks to consider elective partial colectomy. Medication reconciliation has been performed. Regular diet. Activity as tolerated. This note was completed using [employer] voice recognition software. There may be knitting tester errors as a result. Diagnosis - Discharge Diagnosis (1) Diverticulitis Status: Acute Specialty Discharge - Follow Up or Referrals Follow up with: Freddy Mesa MD [Physician] - 12/14/16 2:15 pm Discharge Plan - Discharge Data Disposition: Disch To Home/Self Care Condition at Discharge: Stable Discharge Diet: advance to your usual diet Activity: resume usual activities as tolerated Hygiene: no restrictions Weight Bearing at Discharge: full weight bearing Driving: no restrictions - Discharge Medications New Amoxicillin/Clav Tab [Augmentin Tab] 875 mg PO BID #10 tablet Continue Ergocalciferol (Vitamin D2) [Vitamin D2] 50,000 unit PO ALLEN Omeprazole Magnesium [Prilosec Otc] 20 mg PO QAM Multivitamin [Multivitamins] 1 tablet PO QAM Naproxen [Naprosyn Tab] 500 mg PO BID PRN PRN Reason: ABD PAIN Fluticasone/Salmeterol 250-50 [Advair 250-50] 1 puff INH BID Albuterol Inhaler [Proventil Inhaler] 2 puff INH Q6H PRN PRN Reason: Shortness Of Breath/Wheezing hydrOXYzine HCl [Hydroxyzine HCl] 25 mg PO TID PRN PRN Reason: Itching Promethazine Tab [Phenergan Tab] 25 mg PO Q4H PRN PRN Reason: Nausea/Vomiting HYDROcodone/ACETAMIN 5-325 [[place] 5-325] 1 tablet PO Q6H PRN #20 tablet PRN Reason: Pain Ondansetron Tab [Zofran Tab] 4 mg PO Q6H #20 tablet Polyethylene Glycol Powder [Miralax] 17 gm PO DAILY Tizanidine HCl 8 mg PO TID PRN PRN Reason: MUSCLE SPASMS Changed HYDROcodone/ACETAMIN 10-325 [[place] 10-325] 1 tablet PO Q6HR PRN #20 tablet PRN Reason: Pain Discontinued metroNIDAZOLE TAB [Flagyl Cap/Tab] 500 mg PO TID #30 tablet - Follow Up or Referral Follow Up: Freddy Mesa MD [Physician] - 12/14/16 2:15 pm - Forms/Instructions Exam - Constitutional Vitals: Period Temp Pulse Resp BP Sys/Pgae Pulse Ox Last 24 Hr 96.5 F-98.8 F 74-94 18-20 110-138/61-86 93-96 Vital signs are noted above. Heart is regular with no murmur or gallop. Lungs are clear with no rales or wheezes. Abdomen is obese and soft with only minimal tenderness and good bowel sounds. She is awake and alert DS: Provider Date of admission: 11/21/16 15:42 Primary care physician: . No PCP Attending physician on admission: Mere Polanco MD Consults: 11/21/16 15:52 Consult to Physician [CONS] Routine Comment: recurrent diverticulitis. Pt known to you Consulting Provider: Freddy Mesa Consulting Provider Notified: No When should Consulting Provider be notified: Now Person Notified: Dr Mesa Date Notified: 11/22/16 Time Notified: 07:41 Consult Notification Comment: called cell phone left message Discharging clinician: Oneal Muir MD Expected date of discharge: 11/25/16
[2016-11-25] MEDS: FLUTICASONE/SALMETEROL 250-50 DISKUS 14 DOSE INH SCH (08:23)
[2016-11-25] MEDS: POLYETHYLENE GLYCOL POWDER 17 GM PACK PO SCH (08:23)
[2016-11-25] MEDS: PANTOPRAZOLE 40 MG TABLET PO SCH (08:23)
[2016-11-25] MEDS: AMOXICILLIN/CLAV 875 MG TABLET PO SCH (08:23)
== END 2016-11-25 09:10 | disposition home or self-care (01) | DRG 392 ==
LOC: EDBD → EDUNIT# → N.ED 13:28 → N.EDINP 15:42 → SUATTDRO 15:42 → N.EDINP 16:08 → N.2E 16:16
PROVIDERS: ADMIT Pediatrics; ATTEND Internal Medicine Geriatric Medicine

== ENCOUNTER 2016-11-29 16:51 | Observation (INO) ==
[2016-11-29] MEDS ORDERED: PROMETHAZINE 25 MG/1 ML VIAL IM STA (17:08)
--- NOTE | 2016-11-29 17:16 | Emergency Department Note ---
Stef Gauthier Brittany, am scribing for, and in the presence of, José Miguel Harris MD 17:12. Steven Gauthier Robert M, MD, personally performed the services described in this documentation, ascribed by Rimma Finch in my presence, and it is both accurate and complete 714 . Arrival - Arrival Chief Complaint: Nausea/Vomiting/Diarrhea Stated Complaint: VOMITING ED Nursing Triage Note: Pt returns today for continued vomiting that started on and was seen here yesterday for the same complaint. Mode of Arrival: Wheelchair Limitations: No Limitations Source: Patient, RN Notes Reviewed Time Seen by Provider: 11/29/16 17:07 - History of Present Illness HPI Narrative: Patient is a 61 y/o black female presenting to the ED with c/o persistent N/V which onset November 26. Patient has been seen and evaluated on multiple occasions in the recent weeks for Diverticulitis exacerbation. Patient was notably discharged on November 25 s/p admission for this exacerbation. Patient notes that Nighat she was DC'd with did little to nothing to alleviate N /V displayed on and Wednesday. Patient presented here yesterday for this and was sent home with abx and Reglan, but this has not been able to control N/ V. Patient states that she has not been able to tolerate anything taken in PO, including broth, fluids, and medications. She notes that she is scheduled to have the left lower portion of her colon removed next month. Patient goes on to state that this exacerbation of Diverticulitis has been the worst yet. Confirms LLQ tenderness to palpation. Patient has no other complaint/pain. Onset (ago): day(s) (3) Consistency: constant Allergies/Adverse Reactions: Allergies Allergy/AdvReac Type Severity Reaction Status Date / Time ciprofloxacin Allergy HIVES Verified 11/21/16 16:29 haloperidol [From Haldol] Allergy MOUTH Verified 08/13/16 13:44 TWISTED TO THE SIDE metronidazole [From Flagyl] AdvReac Vomiting Verified 11/28/16 14:00 Home Medications: Home Medications Medication Instructions Recorded Confirmed Type Ergocalciferol (Vitamin D2) 50,000 unit PO ALLEN 10/06/15 11/29/16 History [Vitamin D2] Multivitamin [Multivitamins] 1 tablet PO QAM 10/06/15 11/29/16 History Omeprazole Magnesium [Prilosec Otc] 20 mg PO QAM 10/06/15 11/29/16 History Fluticasone/Salmeterol 250-50 1 puff INH BID 02/16/16 11/29/16 History [Advair 250-50] Naproxen [Naprosyn Tab] 500 mg PO BID PRN 02/16/16 11/29/16 History Albuterol Inhaler [Proventil 2 puff INH Q6H PRN 08/13/16 11/29/16 History Inhaler] Polyethylene Glycol Powder 17 gm PO DAILY 08/13/16 11/29/16 History [Miralax] Promethazine Tab [Phenergan Tab] 25 mg PO Q4H PRN 08/13/16 11/29/16 History hydrOXYzine HCl [Hydroxyzine HCl] 25 mg PO TID PRN 08/13/16 11/29/16 History HYDROcodone/ACETAMIN 5-325 [[place] 1 tablet PO Q6H PRN #20 tablet 11/20/16 Rx 5-325] Ondansetron Tab [Zofran Tab] 4 mg PO Q6H #20 tablet 11/20/16 11/29/16 Rx Tizanidine HCl 8 mg PO TID PRN 11/20/16 11/29/16 History Amoxicillin/Clav Tab [Augmentin 875 mg PO BID #10 tablet 11/25/16 11/29/16 Rx Tab] HYDROcodone/ACETAMIN 10-325 [[place] 1 tablet PO Q6HR PRN #20 tablet 11/25/1607/17 Rx 10-325] Metoclopramide Tab [Reglan Tab] 5 mg PO ACHS #40 tablet 11/28/16 11/29/16 Rx Sucralfate Tab [Carafate Tab] 1 gm PO ACHS #40 tablet 11/28/16 11/29/16 Rx Review of System - Review of System 12 point system: reviewed and no additional remarkable complaints except as stated - Review of System Constitutional: Absent: chills, fever Eyes: Absent: vision change Head/Ears/Nose/Throat: Absent: nasal drainage, sore throat Respiratory: Absent: respiratory distress Cardiovascular: Absent: chest pain Gastrointestinal: Present: nausea, vomiting. Absent: abdominal pain, diarrhea, constipation Genitourinary female: Absent: dysuria, frequency, urgency Musculoskeletal: Absent: arm pain, back pain, leg pain, neck pain Skin: Absent: rash Neurological: Absent: headache Psychiatric: Absent: anxiety, depression Medical,Surgical,& Family Hx - Medical History Psychological: History of: Anxiety Disorders, Bipolar Disorder HEENT: History of: Eye Problem (wears glasses), Dental Problems (WEAR UPPER FULL DENTURES) Respiratory: History of: Bronchitis, COPD Renal: History of: Renal Problems (CYST ON LEFT KIDNEY) Genitourinary: History of: Kidney Stones Gastrointestinal: History of: Diverticulitis/ Diverticulosis, GERD, Polyps Musculoskeletal: History of: Back/Neck Problems (BULGING DISC NECK AND BACK), Herniated Disk, Musculoskeletal Problems (SPURS ON SPINE, ARTHRITIS ON SPINE AND HIPS (BILATERAL),) No history of: Amputation Hematology: No history of: Anemia, Bleeding Problems, Clotting Problems, Sickle Cell Disease, Hematologic Cancer, Blood Disorders Other: History of: Miscellaneous Medical Problems (osteoporesis) - Surgical History Cardiac Surgeries: Patient Denies: Femoral-Popliteal Bypass Graft, Cardiac Catheterization, Cardiac Surgery, Carotid Endarterectomy, Internal Defibrillator, Vascular Access Devices Thoracic Surgeries: Patient denies;: Organ Transplant, Lobectomy Neurologic Surgeries: Patient denies: Neurologic Surgery HEENT Surgeries: Patient denies: Carotid Endarterectomy, Eye Surgery, Tonsilectomy & Adenoidectomy Abdominal Surgeries: Surgical HX of: Colonoscopy Patient denies: Abdominal Surgery, Appendectomy, Cholecystectomy, Gastric Bypass Surgery, EGD, Hernia Repair, Splenectomy Reproductive Surgeries: Patient denies;: Breast Surgery, Section, Dilation and Curettage, Genitourinary Surgery, Gynecologic Surgery, Hysterectomy, Tubal Ligation Orthopedic Surgeries: Patient denies;: Implanted Devices, Orthopedic Surgery, Spinal Surgery, Total Hip Replacement, Total Knee Replacement - Family History Family History: Reports;: Family Cancer (sister), Family Diabetes (FATHER), Family Hypertension - Social History Smoking Status: Current every day smoker Exam Vital Signs: Vital Signs Temperature 99.3 F 11/29/16 16:52 Pulse Rate 70 11/29/16 16:52 Respiratory Rate 20 11/29/16 16:52 Blood Pressure 153/90 11/29/16 16:52 O2 Sat by Pulse Oximetry 97 11/29/16 16:52 - General General appearance: alert, in no apparent distress - Head Head exam: Present: atraumatic, normocephalic, normal inspection - Eye Eye exam: Present: normal appearance, PERRL, EOMI - ENT ENT exam: Present: normal exam, normal oropharynx - Neck Neck exam: Present: normal inspection, full ROM, trachea midline - Chest Chest inspection: Present: normal inspection, symmetric chest wall rise - Respiratory Respiratory exam: Present: normal lung sounds bilaterally - Cardiovascular Cardiovascular exam: Present: regular rate, normal rhythm, normal heart sounds - Abdominal Exam Abdominal exam: Present: soft, tenderness (LLQ tenderness to palpation), normal bowel sounds - Extremities Exam Extremities exam: Present: normal inspection - Back Exam Back exam: Present: normal inspection - Neurological Exam Neurological exam: Present: alert, oriented X3, CN II-XII intact. Absent: motor sensory deficit - Psychiatric Psychiatric exam: Present: normal affect, normal mood - Skin Skin exam: Present: warm, dry Course - Reevaluation(s) Reevaluation #1: The labs from yesterday were essentially normal. The patient continues to vomit and cannot hold down her oral antibiotics so I see no other alternative but to admit her so she can continue IV antibiotics until her diverticulitis flareup proceeds. She is still relatively tender in the left lower quadrant focally. I discussed this with Shraddha on hospitalist service. She agrees. Time: 17:15 - Consultations Consultation #1: The hospitalist service will evaluate and admit the patient. Time: 17:14 Disposition Clinical Impression: Intractable nausea and vomiting, Sigmoid diverticulitis, Bipolar 1 disorder Case discussed with: patient, patient's family Disposition: Still a Patient Condition: Stable Time of Disposition: 17:15
[2016-11-29] MEDS ORDERED: PROMETHAZINE 25 MG/1 ML VIAL ONE (17:36)
--- NOTE | 2016-11-29 17:50 | CT Report ---
History: Left lower quadrant pain. Nausea and vomiting Date: 11/29/2016 Study: CT abdomen and pelvis without contrast Comparison exam: November 19, 2016 CT abdomen and pelvis with contrast Technique: Spiral CT sections were obtained from the lung bases to the pubic symphysis without contrast. The CT exam was performed using one or more of the following dose reduction techniques: Automated exposure control, adjustment of the mA and/or kV according to patient size, or use of iterative reconstruction technique. CT abdomen: The partially visualized lung bases are generally clear. There is no gross pleural or pericardial effusion. The liver, spleen, pancreas, adrenal glands, kidneys, bile ducts, and fluid-filled gallbladder are unremarkable without change. Rounded water density renal cysts are present bilaterally, including a 3.8 cm cyst in the mid right kidney. There is no radiopaque renal or ureteral stone. There is no hydronephrosis. There is no aortic aneurysm. The appendix is normal. There is again localized thickening of the wall of the sigmoid colon in a region of numerous diverticuli compatible with changes of diverticulitis. There is strandy and hazy change in the pericolonic fat in this area. These changes are the same or only minimally worsened compared to the previous study. There is no evidence of pneumoperitoneum or abscess. CT pelvis: Multiple uterine masses compatible with leiomyomata, some of which are calcified, are noted as before. There is degenerative disc disease of the lumbar spine. Impression: Sigmoid diverticulitis, the same or only minimally worsened compared to the previous study. No evidence of perforation or abscess. Otherwise unchanged PROCEDURE INTERPRETED AT [facility] DEPARTMENT OF RADIOLOGY Final Report Signed by: Dr. Barbie Chambers
[2016-11-29] MEDS: DEXTROSE 5% LACTATED RINGERS 1,000 ML IV SCH (17:51)
[2016-11-29 17:55] LABS: Basophils % 0.2 % (0.0-0.8); Eosinophils % 0.2 % (0.00-10.9); Hematocrit 37.2 VOL% (35.7-47.0); Hemoglobin 12.9 GM/DL (12.0-16.0); Immature Granulocytes % 0.7 %; Immature Granulocytes Absolute 0.06 #; Lymphocytes # 1.5 10*3/uL (1.4-4.0); Lymphocytes % 18.2 % (21.3-54.2); Mean Corpuscular HGB Conc 34.7 GM/DL (32-36); Mean Corpuscular Hemoglobin 28 PG (27-34); Mean Corpuscular Volume 81.8 FL (87-102); Monocytes # 0.8 10*3/uL (0.11-0.8); Monocytes % 10.2 % (1.7-12.7); Neutrophils # 5.7 10*3/uL (1.4-7.4); Neutrophils % 70.5 % (38.7-73.9); Platelet Count 290 T/CUMM (130-400); Red Blood Count 4.55 MC/CUMM (3.8-5.5); Red Cell Distribution Width 12.3 % (9.3-17.3); White Blood Count 8.1 T/CUMM (4-12)
--- NOTE | 2016-11-29 18:00 | Hospitalist History & Physical ---
Assessment and Plan - Time spent with patient Time spent with patient: Greater than 30 minutes (1) Intractable nausea and vomiting Status: Acute Assessment and plan: Admit to hospital. Fluids, CT abd/pelvis, A.M. labs. Current Visit: Yes History of Present Illness Chief complaint: nausea, vomitng History of present illness: Ms. Palacios is a 61 very year old AA female presented to the [facility] ED today for c/o nausea and vomiting that started on and is unable to keep anything (food or fluids) down. She states "everything i have tried comes right back up". Medical History: COPD, Reflux, Diverticulitis, Polyps,Bipolar disorder, Anxiety disorders, Cyst on left kidney, Chronic back and neck pain ( bulging Disk neck and back); Arthritis. Surgical history: colonscopy, (see is suppose to go to Dr Street office for an appointment(for sigmoid colectomy). Patient reports discharged home on Wednesday; started vomiting and severe nausea starting on , came to the ER yesterday and received fluids and sent home, returned today for continuous nausea and vomiting. Reports chills. denies cough or shortness of breath. At time of presentation to the ED, patient assessed. VS: 99.3, HR 70, BP 138/ 86. Labs: WBC 8.1, Hgb 12.9, Hct 37.2, Plt 290; CT abd/pelvis: Sigmoid diverticulitis, same or only minimal worsening compared to previous study, no evidence of perforation or abscess After brief discussion with Dr Harris and Dr Craig, the patient will be admitted to the hospitalist services for further evaluation and care. social history: smoking daily; Code status: Full CODE Home Medications Medication Instructions Recorded Confirmed Type Ergocalciferol (Vitamin D2) 50,000 unit PO ALLEN 10/06/15 11/29/16 History [Vitamin D2] Multivitamin [Multivitamins] 1 tablet PO QAM 10/06/15 11/29/16 History Omeprazole Magnesium [Prilosec Otc] 20 mg PO QAM 10/06/15 11/29/16 History Fluticasone/Salmeterol 250-50 1 puff INH BID 02/16/16 11/29/16 History [Advair 250-50] Naproxen [Naprosyn Tab] 500 mg PO BID PRN 02/16/16 11/29/16 History Albuterol Inhaler [Proventil 2 puff INH Q6H PRN 08/13/16 11/29/16 History Inhaler] Polyethylene Glycol Powder 17 gm PO DAILY 08/13/16 11/29/16 History [Miralax] Promethazine Tab [Phenergan Tab] 25 mg PO Q4H PRN 08/13/16 11/29/16 History hydrOXYzine HCl [Hydroxyzine HCl] 25 mg PO TID PRN 08/13/16 11/29/16 History HYDROcodone/ACETAMIN 5-325 [[place] 1 tablet PO Q6H PRN #20 tablet 11/20/16 Rx 5-325] Ondansetron Tab [Zofran Tab] 4 mg PO Q6H #20 tablet 11/20/16 11/29/16 Rx Tizanidine HCl 8 mg PO TID PRN 11/20/16 11/29/16 History Amoxicillin/Clav Tab [Augmentin 875 mg PO BID #10 tablet 11/25/16 11/29/16 Rx Tab] HYDROcodone/ACETAMIN 10-325 [[place] 1 tablet PO Q6HR PRN #20 tablet 11/25/1607/17 Rx 10-325] Metoclopramide Tab [Reglan Tab] 5 mg PO ACHS #40 tablet 11/28/16 11/29/16 Rx Sucralfate Tab [Carafate Tab] 1 gm PO ACHS #40 tablet 11/28/16 11/29/16 Rx Allergies Allergy/AdvReac Type Severity Reaction Status Date / Time ciprofloxacin Allergy HIVES Verified 11/21/16 16:29 haloperidol [From Haldol] Allergy MOUTH Verified 08/13/16 13:44 TWISTED TO THE SIDE metronidazole [From Flagyl] AdvReac Vomiting Verified 11/28/16 14:00 Medical,Surgical,& Family Hx - Medical History Psychological: History of: Anxiety Disorders, Bipolar Disorder HEENT: History of: Eye Problem (wears glasses), Dental Problems (WEAR UPPER FULL DENTURES) Respiratory: History of: Bronchitis, COPD Renal: History of: Renal Problems (CYST ON LEFT KIDNEY) Genitourinary: History of: Kidney Stones Gastrointestinal: History of: Diverticulitis/ Diverticulosis, GERD, Polyps Musculoskeletal: History of: Back/Neck Problems (BULGING DISC NECK AND BACK), Herniated Disk, Musculoskeletal Problems (SPURS ON SPINE, ARTHRITIS ON SPINE AND HIPS (BILATERAL),) No history of: Amputation Hematology: No history of: Anemia, Bleeding Problems, Clotting Problems, Sickle Cell Disease, Hematologic Cancer, Blood Disorders Other: History of: Miscellaneous Medical Problems (osteoporesis) - Surgical History Cardiac Surgeries: Patient Denies: Femoral-Popliteal Bypass Graft, Cardiac Catheterization, Cardiac Surgery, Carotid Endarterectomy, Internal Defibrillator, Vascular Access Devices Thoracic Surgeries: Patient denies;: Organ Transplant, Lobectomy Neurologic Surgeries: Patient denies: Neurologic Surgery HEENT Surgeries: Patient denies: Carotid Endarterectomy, Eye Surgery, Tonsilectomy & Adenoidectomy Abdominal Surgeries: Surgical HX of: Colonoscopy Patient denies: Abdominal Surgery, Appendectomy, Cholecystectomy, Gastric Bypass Surgery, EGD, Hernia Repair, Splenectomy Reproductive Surgeries: Patient denies;: Breast Surgery, Section, Dilation and Curettage, Genitourinary Surgery, Gynecologic Surgery, Hysterectomy, Tubal Ligation Orthopedic Surgeries: Patient denies;: Implanted Devices, Orthopedic Surgery, Spinal Surgery, Total Hip Replacement, Total Knee Replacement - Family History Family History: Reports;: Family Cancer (sister), Family Diabetes (FATHER), Family Hypertension - Social History Smoking Status: Current every day smoker Review of systems: ROS completed and pertinent negatives and positives in the HPI Exam - Constitutional Vitals: Period Temp Pulse Resp BP Sys/Page Pulse Ox Last 24 Hr 99.3 F 70 20 153/90 97 General appearance: normal weight, no acute distress - Head Head exam: Present: normal inspection - Eye Eye exam: Present: EOMI Pupils: Present: SRINIVASAN - ENT ENT exam: Present: normal exam - Neck Neck exam: Present: normal inspection - Respiratory Respiratory exam: Present: clear to auscultation bilaterally - GI/Abdominal GI/Abdominal exam: Present: normal bowel sounds, soft. Absent: rebound - Extremities Exam Extremities exam: Present: normal inspection. Absent: edema - Neurological Exam Neurological exam: Present: alert, oriented X3 - Psychiatric Psychiatric exam: Present: normal mood, flat affect - Skin Skin exam: Present: normal color, warm, dry Results - Labs Labs: labs veiwd BMP
[2016-11-29 18:16] LABS: Calcium 8.9 MG/DL (8.5-10.1); Magnesium 2.1 MG/DL (1.8-2.4); Osmolality,Calculated 279.4 MOS/KG (273-304); Potassium 3.4 MMOL/L (3.5-5.1)
[2016-11-29] MEDS ORDERED: MORPHINE 2 MG/1 ML SYRINGE IV PRN (18:40)
[2016-11-29] MEDS ORDERED: ALBUTEROL 2.5 MG/3 ML NEB RESP TX PRN (18:40)
[2016-11-29] MEDS ORDERED: METOCLOPRAMIDE 10 MG/2 ML VIAL IV PRN (18:40)
[2016-11-29] MEDS ORDERED: ENOXAPARIN 40 MG/0.4 ML SYRINGE SUBCUT SCH (18:40)
[2016-11-29] MEDS ORDERED: ONDANSETRON 4 MG/2 ML VIAL IV PRN (18:40)
[2016-11-29] MEDS: AMPICILLIN/SULBACTAM 3,000 MG in SODIUM CHLORIDE 0.9% 100 ML IV SCH (20:36)
[2016-11-29] MEDS: FLUTICASONE/SALMETEROL 250-50 DISKUS 14 DOSE INH SCH (20:36)
[2016-11-30] MEDS: DEXTROSE 5% LACTATED RINGERS 1,000 ML IV SCH ×2 (02:21→12:33)
[2016-11-30] MEDS: AMPICILLIN/SULBACTAM 3,000 MG in SODIUM CHLORIDE 0.9% 100 ML IV SCH ×2 (04:01→12:30)
[2016-11-30 05:59] LABS: Albumin 3.1 G/DL (3.4-5.0); Bilirubin,Total 0.5 MG/DL (0.2-1.0); Calcium 8.6 MG/DL (8.5-10.1); Magnesium 2.3 MG/DL (1.8-2.4); Osmolality,Calculated 280.3 MOS/KG (273-304); Total Protein 6.7 G/DL (6.4-8.3)
--- NOTE | 2016-11-30 07:48 | XRay Report ---
Exam: XR chest 1V portable Date: 11/30/2016 4:00 AM Indication: COPD Comparison: 11/24/2016 Technical: AP portable Findings: Lateral marginal osteophytes are present ASVD is present. Cardiomegaly is present. Some underlying mild fibrotic scarring within the lung lozano. No obvious effusions or consolidations. Mediastinum is otherwise intact. Impression: 1. Mild underlying fibrotic scarring with a few reticular nodular densities without overt congestive failure consolidating infiltrates. PROCEDURE INTERPRETED AT [facility] DEPARTMENT OF RADIOLOGY Final Report Signed by: Dr. Gallo Zambrano
[2016-11-30] MEDS ORDERED: PANTOPRAZOLE 40 MG VIAL IV SCH (09:00)
[2016-11-30] MEDS: FLUTICASONE/SALMETEROL 250-50 DISKUS 14 DOSE INH SCH (10:34)
[2016-11-30 11:16] VITALS: BP 116/73
--- NOTE | 2016-11-30 12:27 | General Surgery Consult Note ---
Assessment and Plan (1) Sigmoid diverticulitis Status: Acute Assessment and plan: The patient is doing much better now. She feels like she might of gotten an upset stomach from something she had eaten at home. She has tolerated Augmentin well in the past. We will continue Augmentin and make sure that she knows keep her stomach full in taking this medication and I will see her back as previously scheduled. I have recommended an elective sigmoid colon resection after she is recovered from her acute episode but if she gets readmitted again we may need to go ahead with the resection before she completely recovers. Current Visit: Yes History of Present Illness Chief complaint: Nausea and vomiting History of present illness: Ms. Palacios is a 61 year old female with a history of recurrent sigmoid diverticulitis who was readmitted to the hospital with nausea and vomiting but no abdominal pain. She had a repeat CT scan done in the ER which showed slight worsening of her sigmoid diverticulitis. She received IV fluids overnight and feels back to normal today with no abdominal pain. Her white blood cell count is normal. She is requesting to be discharged home. Home Medications Medication Instructions Recorded Confirmed Type Ergocalciferol (Vitamin D2) 50,000 unit PO ALLEN 10/06/15 11/29/16 History [Vitamin D2] Multivitamin [Multivitamins] 1 tablet PO QAM 10/06/15 11/29/16 History Omeprazole Magnesium [Prilosec Otc] 20 mg PO QAM 10/06/15 11/29/16 History Fluticasone/Salmeterol 250-50 1 puff INH BID 02/16/16 11/29/16 History [Advair 250-50] Naproxen [Naprosyn Tab] 500 mg PO BID PRN 02/16/16 11/29/16 History Albuterol Inhaler [Proventil 2 puff INH Q6H PRN 08/13/16 11/29/16 History Inhaler] Polyethylene Glycol Powder 17 gm PO DAILY 08/13/16 11/29/16 History [Miralax] Promethazine Tab [Phenergan Tab] 25 mg PO Q4H PRN 08/13/16 11/29/16 History hydrOXYzine HCl [Hydroxyzine HCl] 25 mg PO TID PRN 08/13/16 11/29/16 History HYDROcodone/ACETAMIN 5-325 [[place] 1 tablet PO Q6H PRN #20 tablet 11/20/16 Rx 5-325] Ondansetron Tab [Zofran Tab] 4 mg PO Q6H #20 tablet 11/20/16 11/29/16 Rx Tizanidine HCl 8 mg PO TID PRN 11/20/16 11/29/16 History Amoxicillin/Clav Tab [Augmentin 875 mg PO BID #10 tablet 11/25/16 11/29/16 Rx Tab] HYDROcodone/ACETAMIN 10-325 [[place] 1 tablet PO Q6HR PRN #20 tablet 11/25/1607/17 Rx 10-325] Metoclopramide Tab [Reglan Tab] 5 mg PO ACHS #40 tablet 11/28/16 11/29/16 Rx Sucralfate Tab [Carafate Tab] 1 gm PO ACHS #40 tablet 11/28/16 11/29/16 Rx Allergies Allergy/AdvReac Type Severity Reaction Status Date / Time ciprofloxacin Allergy HIVES Verified 11/21/16 16:29 haloperidol [From Haldol] Allergy MOUTH Verified 08/13/16 13:44 TWISTED TO THE SIDE metronidazole [From Flagyl] AdvReac Vomiting Verified 11/28/16 14:00 Medical,Surgical,& Family Hx - Medical History Psychological: History of: Anxiety Disorders, Bipolar Disorder HEENT: History of: Eye Problem (wears glasses), Dental Problems (WEAR UPPER FULL DENTURES) Respiratory: History of: Bronchitis, COPD Renal: History of: Renal Problems (CYST ON LEFT KIDNEY) Genitourinary: History of: Kidney Stones Gastrointestinal: History of: Diverticulitis/ Diverticulosis, GERD, Polyps Musculoskeletal: History of: Back/Neck Problems (BULGING DISC NECK AND BACK), Herniated Disk, Musculoskeletal Problems (SPURS ON SPINE, ARTHRITIS ON SPINE AND HIPS (BILATERAL),) No history of: Amputation Hematology: No history of: Anemia, Bleeding Problems, Clotting Problems, Sickle Cell Disease, Hematologic Cancer, Blood Disorders Other: History of: Miscellaneous Medical Problems (osteoporesis) - Surgical History Cardiac Surgeries: Patient Denies: Femoral-Popliteal Bypass Graft, Cardiac Catheterization, Cardiac Surgery, Carotid Endarterectomy, Internal Defibrillator, Vascular Access Devices Thoracic Surgeries: Patient denies;: Organ Transplant, Lobectomy Neurologic Surgeries: Patient denies: Neurologic Surgery HEENT Surgeries: Patient denies: Carotid Endarterectomy, Eye Surgery, Tonsilectomy & Adenoidectomy Abdominal Surgeries: Surgical HX of: Colonoscopy Patient denies: Abdominal Surgery, Appendectomy, Cholecystectomy, Gastric Bypass Surgery, EGD, Hernia Repair, Splenectomy Reproductive Surgeries: Patient denies;: Breast Surgery, Section, Dilation and Curettage, Genitourinary Surgery, Gynecologic Surgery, Hysterectomy, Tubal Ligation Orthopedic Surgeries: Patient denies;: Implanted Devices, Orthopedic Surgery, Spinal Surgery, Total Hip Replacement, Total Knee Replacement - Family History Family History: Reports;: Family Cancer (sister), Family Diabetes (FATHER), Family Hypertension - Social History Smoking Status: Current every day smoker Frequency of Alcohol Use: None Type of Drug Use: None - Constitutional Constitutional: Present: as per HPI - EENT Nose, mouth and throat: Present: as per HPI - Cardiovascular Cardiovascular: Present: as per HPI - Respiratory Respiratory: Present: as per HPI - Gastrointestinal Gastrointestinal: Present: as per HPI - Genitourinary Genitourinary: Present: as per HPI - Musculoskeletal Musculoskeletal: Present: as per HPI - Neurological Neurological: Present: as per HPI - Endocrine Endocrine: Present: as per HPI Hematologic/Lymphatic: Present: as per HPI Exam - Constitutional Vitals: Period Temp Pulse Resp BP Sys/Page Pulse Ox Last 24 Hr 97.3 F-99.3 F 54-70 16-20 100-159/54-92 94-98 General appearance: no acute distress, over weight - Head Head exam: Present: normal inspection, normocephalic - Eye Eye exam: Present: EOMI Pupils: Present: SRINIVASAN - ENT ENT exam: Present: normal exam Mouth exam: Present: normal external inspection, normal voice - Neck Neck exam: Present: normal inspection, trachea midline - Respiratory Respiratory exam: Present: clear to auscultation bilaterally. Absent: accessory muscle use, chest wall tenderness - Cardiovascular Cardiovascular exam: Present: RRR. Absent: systolic murmur, tachycardia - GI/Abdominal GI/Abdominal exam: Present: normal bowel sounds, soft. Absent: tenderness, rebound - Extremities Exam Extremities exam: Present: normal inspection, normal capillary refill - Back Exam Back exam: Present: normal inspection - Neurological Exam Neurological exam: Present: alert, oriented X3 Speech: Present: normal - Skin Skin exam: Present: normal color, warm Results - Labs CBC & BMP: 11/29/16 17:40 11/30/16 05:03 - Diagnostic Findings Procedure: CT Abdomen and Pelvis: image reviewed by me, report reviewed by me ( Sigmoid diverticulitis)
--- NOTE | 2016-11-30 13:56 | Discharge Summary ---
Hospital Course - Hospital Course Hospital Course: Ms. Palacios is a 61 year old AA female presented to the [facility] ED for complaints of nausea and vomiting that started 4 days prior to admission and is unable to keep anything down. Patient denies any other symptoms except chills. Medical History: COPD, Reflux, Diverticulitis, Polyps,Bipolar disorder, Anxiety disorders, Cyst on left kidney, Chronic back and neck pain (bulging Disk neck and back); Arthritis. Surgical history: colonscopy. Patient has an appointment to see Dr. Mesa for evaluation for possible colectomy for recurrent diverticulitis. Patient reported discharged for diverticulitis recently. Patient went to the ER a few days prior admission for IV fluids and was discharged home. Patient reports symptoms worsened. Patient was admitted for nausea and vomiting. Patient was placed on IV anti- emetics and IVF. Patient was placed on IV antibiotics. Patient improved by the next and was able to tolerate a regular diet. Dr. Mesa recommended discharging patient with Augmentin. Patient was discharged on Augmentin. Patient reached the maximum benefit of this hospitalization and was discharged home. Diagnosis - Discharge Diagnosis (1) Intractable nausea and vomiting Status: Acute Discharge Plan - Discharge Data Disposition: Disch To Home/Self Care Condition at Discharge: Stable Discharge Diet: high fiber diet Activity: resume usual activities as tolerated Hygiene: no restrictions Weight Bearing at Discharge: full weight bearing Driving: no restrictions - Discharge Medications Continue Ergocalciferol (Vitamin D2) [Vitamin D2] 50,000 unit PO ALLEN Omeprazole Magnesium [Prilosec Otc] 20 mg PO QAM Multivitamin [Multivitamins] 1 tablet PO QAM Naproxen [Naprosyn Tab] 500 mg PO BID PRN PRN Reason: ABD PAIN Fluticasone/Salmeterol 250-50 [Advair 250-50] 1 puff INH BID Albuterol Inhaler [Proventil Inhaler] 2 puff INH Q6H PRN PRN Reason: Shortness Of Breath/Wheezing hydrOXYzine HCl [Hydroxyzine HCl] 25 mg PO TID PRN PRN Reason: Itching Promethazine Tab [Phenergan Tab] 25 mg PO Q4H PRN PRN Reason: Nausea/Vomiting HYDROcodone/ACETAMIN 5-325 [[place] 5-325] 1 tablet PO Q6H PRN #20 tablet PRN Reason: Pain Ondansetron Tab [Zofran Tab] 4 mg PO Q6H #20 tablet HYDROcodone/ACETAMIN 10-325 [[place] 10-325] 1 tablet PO Q6HR PRN #20 tablet PRN Reason: Pain Metoclopramide Tab [Reglan Tab] 5 mg PO ACHS #40 tablet Sucralfate Tab [Carafate Tab] 1 gm PO ACHS #40 tablet Polyethylene Glycol Powder [Miralax] 17 gm PO DAILY Tizanidine HCl 8 mg PO TID PRN PRN Reason: MUSCLE SPASMS Amoxicillin/Clav Tab [Augmentin Tab] 875 mg PO BID #10 tablet - Follow Up or Referral - Forms/Instructions Additional Discharge Instructions: f/u with PCP in [address] Mesa as scheduled Exam - Constitutional Vitals: Period Temp Pulse Resp BP Sys/Page Pulse Ox Last 24 Hr 97.3 F-99.3 F 54-70 16-20 100-159/54-92 94-98 General appearance: over weight - Head Head exam: Present: normal inspection - Eye Eye exam: Present: EOMI - Respiratory Respiratory exam: Present: clear to auscultation bilaterally - Cardiovascular Cardiovascular exam: Present: regular rate and rhythm - GI/Abdominal GI/Abdominal exam: Present: normal bowel sounds, soft. Absent: tenderness - Neurological Exam Neurological exam: Present: alert, oriented X3 - Psychiatric Psychiatric exam: Present: normal affect - Skin Skin exam: Present: normal color Discharge Results Labs on day of discharge: Labs from last 24 hours 11/30/16 11/29/16 11/29/16 05:03 17:40 17:40 WBC 8.1 RBC 4.55 Hgb 12.9 Hct 37.2 MCV 81.8 L MCH 28 MCHC 34.7 RDW 12.3 Plt Count 290 MPV 9.0 L Neut % (Auto) 70.5 Lymph % (Auto) 18.2 L [place] % (Auto) 10.2 Eos % (Auto) 0.2 Baso % (Auto) 0.2 Neut # (Auto) 5.7 Lymph # (Auto) 1.5 [place] # (Auto) 0.8 Eos # (Auto) 0.0 Baso # (Auto) 0.0 Immature Gran % 0.7 Nucleated RBC % 0.0 Immature Gran # 0.06 Nucleated RBCs # 0.00 Sodium 141 140 Potassium 4.0 3.4 L Chloride 105 103 Carbon Dioxide 28 26 Anion Gap 12.0 14.4 BUN 6 L 9 Creatinine 0.80 0.80 GFR Calculation 102 104 BUN/Creatinine Ratio 7.00 11.00 Glucose 141 H 128 H Calculated Osmolality 280.3 279.4 Calcium 8.6 8.9 Phosphorus 3.0 Magnesium 2.3 2.1 Total Bilirubin 0.50 AST 19 ALT 19 Alkaline Phosphatase 61 Total Protein 6.7 Albumin 3.1 L Globulin 3.6 H Albumin/Globulin Ratio 0.8 L DS: Provider Date of admission: 11/29/16 17:54 Primary care physician: . No PCP Attending physician on admission: Jessica Olea Consults: 11/29/16 18:40 Consult to Physician [CONS] Routine Comment: known to you Consulting Provider: Freddy Mesa 11/29/16 18:47 Consult to Pastoral Services [CONS] Routine Comment: Pastoral Screen: Request Vice President Of Nursing Visit Discharging clinician: Florentino Rodriguez Expected date of discharge: 11/30/16
== END 2016-11-30 14:44 | disposition home or self-care (01) ==
LOC: N.ED 16:51 → N.EDINP 16:51 → SUATTDRO 17:54 → N.2E 18:27
PROVIDERS: ADMIT Hospitalist; ATTEND Family Medicine

== ENCOUNTER 2016-12-08 20:37 | Inpatient (IN) ==
[2016-12-08] MEDS ORDERED: PROMETHAZINE INJ 25 MG in SODIUM CHLORIDE 0.9% 50 ML IV STA (21:28)
[2016-12-08] MEDS ORDERED: PROMETHAZINE 25 MG/1 ML VIAL ONE (21:43)
[2016-12-08 22:08] LABS: Basophils % 0.2 % (0.0-0.8); Eosinophils % 0.3 % (0.00-10.9); Hematocrit 35.5 VOL% (35.7-47.0); Hemoglobin 12.2 GM/DL (12.0-16.0); Immature Granulocytes % 0.4 %; Immature Granulocytes Absolute 0.04 #; Lymphocytes # 1.1 10*3/uL (1.4-4.0); Lymphocytes % 11.4 % (21.3-54.2); Mean Corpuscular HGB Conc 34.4 GM/DL (32-36); Mean Corpuscular Hemoglobin 29 PG (27-34); Mean Corpuscular Volume 82.9 FL (87-102); Mean Platelet Volume 9.3 FL (9.6-12.0); Monocytes # 0.9 10*3/uL (0.11-0.8); Monocytes % 9.3 % (1.7-12.7); Neutrophils # 7.7 10*3/uL (1.4-7.4); Neutrophils % 78.4 % (38.7-73.9); Platelet Count 302 T/CUMM (130-400); Red Blood Count 4.28 MC/CUMM (3.8-5.5); Red Cell Distribution Width 12.6 % (9.3-17.3); White Blood Count 9.9 T/CUMM (4-12)
[2016-12-08 22:21] LABS: INR 1.1; PT Patient Result 11.2 SECS
[2016-12-08 22:29] LABS: Alanine Aminotransferase 19 U/L (13-56); Albumin 3.8 G/DL (3.4-5.0); Alkaline Phosphatase 85 U/L (45-117); Aspartate Amino Transferase 12 U/L (0-37); Bilirubin,Total < 0.39 MG/DL (0.2-1.0); Blood Urea Nitrogen 8 MG/DL (7-18); Calcium 9.3 MG/DL (8.5-10.1); Glucose 131 MG/DL (74-106); Osmolality,Calculated 278.4 MOS/KG (273-304); Potassium 4.3 MMOL/L (3.5-5.1); Sodium 140 MMOL/L (136-145); Total Protein 7.9 G/DL (6.4-8.3)
[2016-12-09] MEDS ORDERED: KETOROLAC 30 MG/1 ML VIAL IV STA (00:17)
[2016-12-09] MEDS ORDERED: KETOROLAC 30 MG/1 ML VIAL ONE (00:21)
[2016-12-09 00:23] LABS: Apearance,Urine CLEAR (Clear); Bilirubin,Urine Negative (Negative); Blood, Urine Moderate mg/dL (Negative); Glucose,Urine (UA) Negative (Negative); Ketones,Urine 5 mg/dL (Negative); Mucus,Urine Occasional /LPF (Occasional); Nitrite,Urine Negative (Negative); Protein,Urine Negative; RBC,Urine 32 /HPF (0-4); Squamous Epithelial Cell,Urine Occasional /HPF (0-10); Urine Color Yellow (Yellow); Urine Specific Gravity 1.045 (1.001-1.035); Urine Urobilinogen < 2.0 EU/DL (0.2-1.0); WBC,Urine 1 /HPF (0-6)
[2016-12-09] MEDS ORDERED: MEROPENEM 1,000 MG in SODIUM CHLORIDE 0.9% 100 ML IV STA (01:08)
[2016-12-09] MEDS ORDERED: ACETAMINOPHEN 325 MG TABLET PO PRN (01:15)
[2016-12-09] MEDS ORDERED: MEROPENEM 1,000 MG VIAL IV ONE (01:58)
--- NOTE | 2016-12-09 06:32 | CT Report ---
CT abdomen pelvis w con Indication: Suspected diverticulitis, lower abdominal pain left side Comparison: 11/29/2016. Technique: CT of the abdomen and pelvis was performed following administration of intravenous contrast. Coronal and sagittal reformatted images were additionally created and submitted for review. The total DLP is 1438 mGy*cm. Dose reduction: This CT exam was performed using one or more of the following dose reduction techniques: Automated exposure control, automated adjustment of the mA and/or KV according to patient size, or use of iterative reconstruction technique. Findings: Very minimal posterior basilar dependent atelectatic changes are noted bilaterally. Lung bases are otherwise clear. There is no pleural or pericardial effusion. ABDOMEN: Liver/Gallbladder: No abnormal enhancing hepatic lesions. No biliary ductal dilatation or gallstones. Portal vein is patent. Spleen: No acute findings. Pancreas: No acute findings. Adrenals: Within normal limits in appearance. Kidneys: Both kidneys enhance symmetrically with symmetric excretion from both kidneys on delayed images. There are cystic hypodense lesions at the upper pole of both kidneys, unchanged from prior. Bowel/mesentery: There are pericolonic inflammatory changes in the region of multiple colonic diverticula in the sigmoid colon. There is minimal pleural fluid noted adjacent to the sigmoid colon, measuring up to 2.1 cm maximum dimension which may represent a developing pericolonic abscess. There is also additional focal fluid in the region of the left adnexa which may be reactive and is similar in size/appearance as compared to the prior CT from 11-29-16. Small bowel is nondilated. There is no mesenteric adenopathy. Appendix is normal. Retroperitoneum: No evidence of aortic aneurysm or significant retroperitoneal adenopathy. PELVIS: Pericolonic stranding changes and minimal free fluid within the dependent pelvis, likely reactive again noted. Uterus demonstrates multiple calcified fibroids and leiomyomatous configuration. Adjacent to the left ovary, there is a hypodensity measuring approximately 2 cm which may represent a cyst or reactive focal fluid. No solid adnexal masses are identified. There is no adenopathy in the pelvis. BONES: No acute or suspicious osseous abnormalities are identified. Multilevel mild degenerative changes. IMPRESSION: 1. Acute sigmoid diverticulitis with small adjacent fluid collection measuring up to 2.1 cm possibly representing focal fluid or early abscess formation. This is too small for percutaneous drainage. 2. Hypodensity adjacent to the left ovary measuring 2 cm may represent a paraovarian cyst or reactive focal fluid. 3. No other significant change when compared to prior. Preliminary report by virtual radiologic. 12/09/2016 6:19 AM PROCEDURE INTERPRETED AT [facility] DEPARTMENT OF RADIOLOGY Final Report Signed by: Patricio Conrad
--- NOTE | 2016-12-09 07:42 | General Surg History&Physical ---
Assessment and Plan (1) Diverticulitis Status: Acute Assessment and plan: This patient is readmitted now with complicated sigmoid diverticulitis. We will treat her initially with IV antibiotics to see if we can get this cool off. If she does not progress as expected we will repeat a CT to see if there is abscesses developing can be drained. She will certainly need surgery at some point but I would like to hold off acutely to improve the chances of an anastomosis rather than a colostomy. There are no emergent indications for surgery at this time. Current Visit: No Qualifiers: History of Present Illness Chief complaint: Abdominal pain History of present illness: Ms. Palacios is a 61 year old female admitted with recurrent diverticulitis now with a small pericolonic abscess in the sigmoid colon less than 2 cm in size. Patient was admitted and placed on IV antibiotics. Home Medications Medication Instructions Recorded Confirmed Type Ergocalciferol (Vitamin D2) 50,000 unit PO ALLEN 10/06/15 12/08/16 History [Vitamin D2] Multivitamin [Multivitamins] 1 tablet PO QAM 10/06/15 12/08/16 History Omeprazole Magnesium [Prilosec Otc] 20 mg PO QAM 10/06/15 12/08/16 History Fluticasone/Salmeterol 250-50 1 puff INH BID 02/16/16 12/08/16 History [Advair 250-50] Naproxen [Naprosyn Tab] 500 mg PO BID PRN 02/16/16 12/08/16 History Albuterol Inhaler [Proventil 2 puff INH Q6H PRN 08/13/16 12/08/16 History Inhaler] Polyethylene Glycol Powder 17 gm PO DAILY 08/13/16 12/08/16 History [Miralax] Promethazine Tab [Phenergan Tab] 25 mg PO Q4H PRN 08/13/16 12/08/16 History hydrOXYzine HCl [Hydroxyzine HCl] 25 mg PO TID PRN 08/13/16 12/08/16 History HYDROcodone/ACETAMIN 5-325 [[place] 1 tablet PO Q6H PRN #20 tablet 11/20/16 Rx 5-325] Ondansetron Tab [Zofran Tab] 4 mg PO Q6H #20 tablet 11/20/16 12/08/16 Rx Tizanidine HCl 8 mg PO TID PRN 11/20/16 12/08/16 History HYDROcodone/ACETAMIN 10-325 [[place] 1 tablet PO Q6HR PRN #20 tablet 11/25/1604/16 Rx 10-325] Metoclopramide Tab [Reglan Tab] 5 mg PO ACHS #40 tablet 11/28/16 12/08/16 Rx Sucralfate Tab [Carafate Tab] 1 gm PO ACHS #40 tablet 11/28/16 12/08/16 Rx Amoxicillin/Clav Tab [Augmentin 875 mg PO BID #10 tablet 11/30/16 12/08/16 Rx Tab] Allergies Allergy/AdvReac Type Severity Reaction Status Date / Time ciprofloxacin Allergy HIVES Verified 11/21/16 16:29 haloperidol [From Haldol] Allergy MOUTH Verified 08/13/16 13:44 TWISTED TO THE SIDE metronidazole [From Flagyl] AdvReac Vomiting Verified 11/28/16 14:00 Medical,Surgical,& Family Hx - Medical History Psychological: History of: Anxiety Disorders, Bipolar Disorder Neurology: History of: Vertigo (5 years ago) HEENT: History of: Eye Problem (wears glasses), Dental Problems (WEAR UPPER FULL DENTURES) Respiratory: History of: Bronchitis, COPD Renal: History of: Renal Problems (CYST ON both KIDNEY) Genitourinary: History of: Kidney Stones Gastrointestinal: History of: Diverticulitis/ Diverticulosis, GERD, Polyps Musculoskeletal: History of: Back/Neck Problems (BULGING DISC NECK AND BACK), Herniated Disk, Musculoskeletal Problems (SPURS ON SPINE, ARTHRITIS ON SPINE AND HIPS (BILATERAL),) No history of: Amputation Hematology: No history of: Anemia, Bleeding Problems, Clotting Problems, Sickle Cell Disease, Hematologic Cancer, Blood Disorders Reproductive: History of: Reproductive Problems (fibroids) Other: History of: Miscellaneous Medical Problems (osteoporesis) - Surgical History Cardiac Surgeries: Patient Denies: Femoral-Popliteal Bypass Graft, Cardiac Catheterization, Cardiac Surgery, Carotid Endarterectomy, Internal Defibrillator, Vascular Access Devices Thoracic Surgeries: Patient denies;: Organ Transplant, Lobectomy Neurologic Surgeries: Patient denies: Neurologic Surgery HEENT Surgeries: Patient denies: Carotid Endarterectomy, Eye Surgery, Tonsilectomy & Adenoidectomy Abdominal Surgeries: Surgical HX of: Colonoscopy (05/2016) Patient denies: Abdominal Surgery, Appendectomy, Cholecystectomy, Gastric Bypass Surgery, EGD, Hernia Repair, Splenectomy Reproductive Surgeries: Patient denies;: Breast Surgery, Section, Dilation and Curettage, Genitourinary Surgery, Gynecologic Surgery, Hysterectomy, Tubal Ligation Orthopedic Surgeries: Patient denies;: Implanted Devices, Orthopedic Surgery, Spinal Surgery, Total Hip Replacement, Total Knee Replacement - Family History Family History: Reports;: Family Cancer (sister), Family Diabetes (FATHER), Family Hypertension - Social History Smoking Status: Current every day smoker Frequency of Alcohol Use: None Type of Drug Use: None Exam - Constitutional Vitals: Period Temp Pulse Resp BP Sys/Page Pulse Ox Last 24 Hr 97.2 F-101.4 F 75-110 18-20 102-153/62-80 95-100 General appearance: no acute distress, over weight - Head Head exam: Present: normal inspection, normocephalic - Eye Eye exam: Present: EOMI Pupils: Present: SRINIVASAN - ENT ENT exam: Present: normal exam Mouth exam: Present: normal external inspection, normal voice - Neck Neck exam: Present: normal inspection, trachea midline - Respiratory Respiratory exam: Present: clear to auscultation bilaterally. Absent: accessory muscle use, chest wall tenderness - Cardiovascular Cardiovascular exam: Present: RRR. Absent: systolic murmur, tachycardia - GI/Abdominal GI/Abdominal exam: Present: normal bowel sounds, tenderness (Focal left lower quadrant tenderness), soft. Absent: guarding, rebound - Extremities Exam Extremities exam: Present: normal inspection, normal capillary refill - Back Exam Back exam: Present: normal inspection - Neurological Exam Neurological exam: Present: alert, oriented X3 Speech: Present: normal - Skin Skin exam: Present: normal color, warm - Constitutional Constitutional: Present: as per HPI - EENT Nose, mouth and throat: Present: as per HPI - Cardiovascular Cardiovascular: Present: as per HPI - Respiratory Respiratory: Present: as per HPI - Gastrointestinal Gastrointestinal: Present: as per HPI - Genitourinary Genitourinary: Present: as per HPI - Musculoskeletal Musculoskeletal: Present: as per HPI - Neurological Neurological: Present: as per HPI - Endocrine Endocrine: Present: as per HPI Hematologic/Lymphatic: Present: as per HPI Results - Labs CBC & BMP: 12/08/16 21:44 12/08/16 21:44 - Diagnostic Findings Procedure: CT Abdomen and Pelvis: image reviewed by me, report reviewed by me ( Sigmoid diverticulitis with pericolonic abscess small)
[2016-12-09] MEDS: PANTOPRAZOLE 40 MG TABLET PO SCH (09:28)
[2016-12-09] MEDS: LACTATED RINGERS 1,000 ML IV SCH ×2 (09:28→19:02)
[2016-12-09] MEDS: ERTAPENEM 1,000 MG in SODIUM CHLORIDE 0.9% 100 ML IV SCH (11:08)
[2016-12-09] MEDS: PROMETHAZINE 25 MG/1 ML VIAL IM PRN (14:04)
[2016-12-09] MEDS: ENOXAPARIN 40 MG/0.4 ML SYRINGE SUBCUT SCH (19:03)
[2016-12-10] MEDS: LACTATED RINGERS 1,000 ML IV SCH ×4 (06:40→22:24)
[2016-12-10] MEDS: PANTOPRAZOLE 40 MG TABLET PO SCH (09:33)
--- NOTE | 2016-12-10 10:33 | General Surgery Progress Note ---
Assessment and Plan (1) Diverticulitis Status: Acute Assessment and plan: Patient is responding to ertapenem. Start liquid diet today and repeat labs tomorrow. The patient has had a multiple recurrent course we will keep her in the hospital on IV antibiotics over the weekend and repeat a CT scan Wednesday. Current Visit: No Qualifiers: Subjective Patient reports: Present: no new complaints, feels better, pain is less, afebrile Exam - Constitutional Vitals: Period Temp Pulse Resp BP Sys/Page Pulse Ox Last 24 Hr 98.9 F-99.2 F 69-95 16-20 105-123/58-74 94-99 General appearance: no acute distress, over weight - Head Head exam: Present: normal inspection, normocephalic - Eye Eye exam: Present: EOMI Pupils: Present: SRINIVASAN - ENT ENT exam: Present: normal exam Mouth exam: Present: normal external inspection, normal voice - Neck Neck exam: Present: normal inspection, trachea midline - Respiratory Respiratory exam: Present: clear to auscultation bilaterally. Absent: accessory muscle use, chest wall tenderness - Cardiovascular Cardiovascular exam: Present: RRR. Absent: systolic murmur, tachycardia - GI/Abdominal GI/Abdominal exam: Present: soft. Absent: tenderness, rebound - Extremities Exam Extremities exam: Present: normal inspection, normal capillary refill - Back Exam Back exam: Present: normal inspection - Neurological Exam Neurological exam: Present: alert, oriented X3 Speech: Present: normal - Skin Skin exam: Present: normal color, warm Results - Labs CBC & BMP: 12/08/16 21:44 12/08/16 21:44
[2016-12-10] MEDS: ERTAPENEM 1,000 MG in SODIUM CHLORIDE 0.9% 100 ML IV SCH (11:27)
[2016-12-10] MEDS: PROMETHAZINE 25 MG/1 ML VIAL IM PRN (18:07)
[2016-12-10] MEDS: ENOXAPARIN 40 MG/0.4 ML SYRINGE SUBCUT SCH (18:17)
[2016-12-11] MEDS: PANTOPRAZOLE 40 MG TABLET PO SCH (08:46)
[2016-12-11] MEDS: LACTATED RINGERS 1,000 ML IV SCH ×2 (10:45)
[2016-12-11] MEDS: ERTAPENEM 1,000 MG in SODIUM CHLORIDE 0.9% 100 ML IV SCH (10:46)
--- NOTE | 2016-12-11 11:10 | Discharge Summary ---
Hospital Course - Hospital Course Hospital Course: Ms. Palacios is a 61-year-old -[place] female with history of COPD and recurrent diverticulitis admitted by Dr. Mesa on 12/09/2016 with a small pericolonic abscess in the sigmoid colon less than 2 cm in size. Patient was placed on IV antibiotics for complicated sigmoid diverticulitis. Dr. Mesa was trying to cool the patient off and repeat a CT scan on Wednesday to see if it was improving. Patient did fail p.o. antibiotics on more than one occasion. Patient's father yesterday and she is insisting she be discharged today. Dr. Mesa tried to get a PICC line placed for daily Invanz since patient did fail p.o. antibiotics. Patient is refusing the PICC line and she is refusing peripheral IV sticks for Invanz. She will only take p.o. antibiotics for now. Since patient failed Augmentin on the last go around Dr. Mesa will try Levaquin and Flagyl today. Patient gets an allergic reaction of hives with Cipro. She has issues with nausea with this previously so we will give her some Zofran as well on discharge. Patient will need to follow-up on Wednesday with a CT scan of the abdomen and pelvis and then see Dr. Mesa in clinic following this. Care coordination, chart review, and completed discharge paperwork took approximately 45 minutes. - Time spent with patient Time with patient DS: Greater than 30 minutes Diagnosis - Discharge Diagnosis (1) History of diverticulitis of colon Status: Chronic (2) COPD (chronic obstructive pulmonary disease) Status: Chronic (3) Sigmoid diverticulitis Status: Acute Discharge Plan - Discharge Data Disposition: Disch To Home/Self Care Condition at Discharge: Stable Discharge Diet: advance to your usual diet Activity: resume usual activities as tolerated Hygiene: may shower Driving: other (No driving if taking pain medicines) Contact your physician if you experience:: fever over 101, Nausea/Vomiting - Discharge Medications New HYDROcodone/ACETAMIN 7.5-325 [[place] 7.5-325] 1 tablet PO Q4H PRN #30 tablet PRN Reason: Pain Moderate (4-7) Levofloxacin Tab [Levaquin Tab] 500 mg PO DAILY #14 tablet metroNIDAZOLE TAB [Flagyl Cap/Tab] 500 mg PO TID #42 tablet Continue Ergocalciferol (Vitamin D2) [Vitamin D2] 50,000 unit PO ALLEN Omeprazole Magnesium [Prilosec Otc] 20 mg PO QAM Multivitamin [Multivitamins] 1 tablet PO QAM Fluticasone/Salmeterol 250-50 [Advair 250-50] 1 puff INH BID Albuterol Inhaler [Proventil Inhaler] 2 puff INH Q6H PRN PRN Reason: Shortness Of Breath/Wheezing hydrOXYzine HCl [Hydroxyzine HCl] 25 mg PO TID PRN PRN Reason: Itching Promethazine Tab [Phenergan Tab] 25 mg PO Q4H PRN PRN Reason: Nausea/Vomiting Metoclopramide Tab [Reglan Tab] 5 mg PO ACHS #40 tablet Sucralfate Tab [Carafate Tab] 1 gm PO ACHS #40 tablet Ondansetron Tab [Zofran Tab] 4 mg PO Q6H #20 tablet Polyethylene Glycol Powder [Miralax] 17 gm PO DAILY Tizanidine HCl 8 mg PO TID PRN PRN Reason: MUSCLE SPASMS Discontinued Naproxen [Naprosyn Tab] 500 mg PO BID PRN PRN Reason: ABD PAIN HYDROcodone/ACETAMIN 5-325 [[place] 5-325] 1 tablet PO Q6H PRN #20 tablet PRN Reason: Pain HYDROcodone/ACETAMIN 10-325 [[place] 10-325] 1 tablet PO Q6HR PRN #20 tablet PRN Reason: Pain Amoxicillin/Clav Tab [Augmentin Tab] 875 mg PO BID #10 tablet - Follow Up or Referral Follow Up: Freddy Mesa MD [Physician] - 12/14/16 (CT abd/pelvis w iv and po contrast prior to appt w dr mesa wednesday) - Forms/Instructions Exam - Constitutional Vitals: Period Temp Pulse Resp BP Sys/Page Pulse Ox Last 24 Hr 97.4 F-100.3 F 71-90 17-20 107-144/66-86 93-100 Exam: 61-year-old -[place] female, moderately anxious, alert and oriented Chest clear CV regular rate and rhythm Abdomen soft, tender left lower quadrant Extremities no edema Discharge Results Procedures and tests throughout hospitalization: Pending Orders 12/14/16 06:00 CT abdomen pelvis w con Routine DS: Provider Date of admission: 12/09/16 01:15 Primary care physician: . No PCP Attending physician on admission: Freddy Mesa MD Consults: 12/09/16 03:09 Consult to Dietitian [CONS] Routine Reason for Dietitian: Dietary Consult Consult Comment: weight loss 12/11/16 09:52 Consult to Case Mgmt/Social Srvs [CONS] Routine Reason for Case Mgmt/Social Srvs: Home IV Therapy Consult Comment: invanz 1G daily for 14 days Discharging clinician: ACOSTA Hurt Expected date of discharge: 12/11/16
[2016-12-11 11:38] VITALS: BP 107/69
== END 2016-12-11 15:40 | disposition home or self-care (01) | DRG 392 ==
LOC: N.ED 20:37 → N.EDINP 12-09 01:15 → N.3E 12-09 01:38
PROVIDERS: ADMIT Surgery; ATTEND Surgery

== ENCOUNTER 2016-12-15 08:28 | Inpatient (IN) ==
[2016-12-15] MEDS ORDERED: BISACODYL 5 MG TABLET PO PRN (12:12)
[2016-12-15] MEDS ORDERED: IBUPROFEN 400 MG TABLET PO PRN (12:12)
--- NOTE | 2016-12-15 12:34 | CT Report ---
CT abdomen pelvis w con Indication: Follow-up pericolonic abscess Comparison: CT abdomen pelvis dated December 08, 2016 Technique: Multiple axial tomographic images of the abdomen and pelvis were obtained after the administration of 100 cc Omnipaque 350 intravenous contrast. Findings: Mild dependent change of the lungs present. No worrisome focal hepatic abnormality. The gallbladder is grossly unremarkable. The pancreas is grossly unremarkable. The spleen is grossly unremarkable. The bilateral adrenal glands are grossly unremarkable. Bilateral renal cysts again demonstrated. Small hypodensities are demonstrated within the kidneys which are too small to characterize but may reflect cysts. No evidence of hydronephrosis. Urinary bladder incompletely distended. There may be some wall thickening which may reflect secondary cystitis. Fibroid uterus. Some of the fibroids are calcified. Probable left ovarian cysts appear similar to comparison study. Interval increased fat stranding about the sigmoid colon consistent with diverticulitis. Interval increased size of fluid collection along the inferior aspect of the sigmoid colon which measures approximately 3.0 x 1.9 x 2.1 cm in width, craniocaudad, and AP dimensions respectively. This is again suggestive of early abscess formation. Smaller adjacent collection is noted which appears new from comparison study and contains a small amount of air consistent with abscess. Multiple colonic diverticula present. No evidence of gastrointestinal obstruction. Mild atherosclerotic calcifications demonstrated. Visualized osseous and surrounding soft tissue structures appear grossly unchanged.. IMPRESSION: Interval increased fat stranding about the sigmoid colon consistent with diverticulitis. Interval increased size of fluid collection along the inferior aspect of the sigmoid colon which measures approximately 3.0 x 1.9 x 2.1 cm in width, craniocaudad, and AP dimensions respectively. This is again suggestive of early abscess formation. Smaller adjacent collection is noted which appears new from comparison study and contains a small amount of air consistent with abscess. There may be some wall thickening of the urinary bladder which may reflect secondary cystitis. Probable left ovarian cysts again demonstrated. Consider follow-up ultrasound. Other/detailed findings as above. The CT exam was performed using one or more of the following dose reduction techniques: Automated exposure control, adjustment of the mA and/or kV according to patient size, or use of iterative reconstruction technique. PROCEDURE INTERPRETED AT [facility] DEPARTMENT OF RADIOLOGY Final Report Signed by: Dr August Olivarez
[2016-12-15] MEDS: LACTATED RINGERS 1,000 ML IV SCH ×2 (13:44→21:21)
[2016-12-15] MEDS: ERTAPENEM 1,000 MG in SODIUM CHLORIDE 0.9% 100 ML IV SCH (13:44)
[2016-12-15] MEDS: ONDANSETRON 4 MG/2 ML VIAL IV PRN ×2 (14:20→22:53)
--- NOTE | 2016-12-15 14:42 | General Surg History&Physical ---
Assessment and Plan - Time spent with patient Time spent with patient: Greater than 30 minutes (1) Nausea and vomiting Status: Acute Assessment and plan: Ms. Palacios is a 61-year-old -[place] female with history of COPD and recurrent diverticulitis admitted by Dr. Mesa as a direct admission from his office with worsening diverticular abscess. Patient will be started on IV antibiotics, pain and nausea control. Once her medicines are reconciled will restart her appropriate home medicines. Still awaiting her labs and UA and will adjust medicines as needed. Dr. Mesa will try to cool patient off over the next several days. Dr. Mesa will see and examine patient and further recommendations to follow. Current Visit: Yes (2) Abdominal pain Status: Acute Current Visit: Yes (3) History of diverticulitis of colon Status: Chronic Current Visit: No (4) COPD (chronic obstructive pulmonary disease) Status: Chronic Current Visit: No Qualifiers: COPD type: unspecified COPD Qualified Code(s): J44.9 - Chronic obstructive pulmonary disease, unspecified (5) Sigmoid diverticulitis Status: Acute Current Visit: No History of Present Illness Chief complaint: Abdominal pain, nausea, vomiting History of present illness: Ms. Palacios is a 61 year old -[place] female with history of COPD and recurrent diverticulitis admitted by Dr. Mesa as a direct admission from his office with increasing abdominal pain, nausea, and vomiting. Patient had initially been admitted on 12/09/2016 with a small abscess in the sigmoid colon less than 2 cm in size. She was placed on IV antibiotics pain and nausea control. She was scheduled for a repeat CT scan on 12/14/2016 but the patient's father had and she ended up leaving on 12/11/2016 on p.o. antibiotics. Patient was supposed to get a PICC line and was to have IV antibiotics at home but she refused all treatment. Now she has worsening abdominal pain nausea and vomiting. She admits to some fevers and chills, denies chest pain, shortness of breath, diarrhea or constipation, or lower extremity edema. Upon exam she looks mildly uncomfortable due to pain and she is carefully holding her emesis bag. CT of the abdomen and pelvis done this morning showing an increased size of the fluid collection along the inferior aspect of the sigmoid colon measuring 3 x 1.9 x 2.1 cm. There is a smaller adjacent collection noted as well with air consistent with abscess. She also has some wall thickening of the urinary bladder. Patient's abdomen is soft but very tender to the touch throughout the abdomen but greater in the left lower quadrant. No peritoneal signs or rebound. All of her labs are pending at this time. Home Medications Medication Instructions Recorded Confirmed Type Ergocalciferol (Vitamin D2) 50,000 unit PO ALLEN 10/06/15 12/08/16 History [Vitamin D2] Multivitamin [Multivitamins] 1 tablet PO QAM 10/06/15 12/08/16 History Omeprazole Magnesium [Prilosec Otc] 20 mg PO QAM 10/06/15 12/08/16 History Fluticasone/Salmeterol 250-50 1 puff INH BID 02/16/16 12/08/16 History [Advair 250-50] Albuterol Inhaler [Proventil 2 puff INH Q6H PRN 08/13/16 12/08/16 History Inhaler] Polyethylene Glycol Powder 17 gm PO DAILY 08/13/16 12/08/16 History [Miralax] Promethazine Tab [Phenergan Tab] 25 mg PO Q4H PRN 08/13/16 12/08/16 History hydrOXYzine HCl [Hydroxyzine HCl] 25 mg PO TID PRN 08/13/16 12/08/16 History Tizanidine HCl 8 mg PO TID PRN 11/20/16 12/08/16 History Metoclopramide Tab [Reglan Tab] 5 mg PO ACHS #40 tablet 11/28/16 12/08/16 Rx Sucralfate Tab [Carafate Tab] 1 gm PO ACHS #40 tablet 11/28/16 12/08/16 Rx HYDROcodone/ACETAMIN 7.5-325 1 tablet PO Q4H PRN #30 tablet 12/11/16 Rx [[place] 7.5-325] Levofloxacin Tab [Levaquin Tab] 500 mg PO DAILY #14 tablet 12/11/16 Rx Ondansetron Tab [Zofran Tab] 4 mg PO Q6H #20 tablet 12/11/16 Rx metroNIDAZOLE TAB [Flagyl Cap/Tab] 500 mg PO TID #42 tablet 12/11/16 Rx Allergies Allergy/AdvReac Type Severity Reaction Status Date / Time ciprofloxacin Allergy HIVES Verified 11/21/16 16:29 haloperidol [From Haldol] Allergy MOUTH Verified 08/13/16 13:44 TWISTED TO THE SIDE metronidazole [From Flagyl] AdvReac Vomiting Verified 11/28/16 14:00 Medical,Surgical,& Family Hx - Medical History Psychological: History of: Anxiety Disorders, Bipolar Disorder Neurology: History of: Vertigo (5 years ago) HEENT: History of: Eye Problem (wears glasses), Dental Problems (WEAR UPPER FULL DENTURES) Respiratory: History of: Bronchitis, COPD Renal: History of: Renal Problems (CYST ON both KIDNEY) Genitourinary: History of: Kidney Stones Gastrointestinal: History of: Diverticulitis/ Diverticulosis, GERD, Polyps Musculoskeletal: History of: Back/Neck Problems (BULGING DISC NECK AND BACK), Herniated Disk, Musculoskeletal Problems (SPURS ON SPINE, ARTHRITIS ON SPINE AND HIPS (BILATERAL),) No history of: Amputation Hematology: No history of: Anemia, Bleeding Problems, Clotting Problems, Sickle Cell Disease, Hematologic Cancer, Blood Disorders Reproductive: History of: Reproductive Problems (fibroids) Other: History of: Miscellaneous Medical Problems (osteoporesis) - Surgical History Cardiac Surgeries: Patient Denies: Femoral-Popliteal Bypass Graft, Cardiac Catheterization, Cardiac Surgery, Carotid Endarterectomy, Internal Defibrillator, Vascular Access Devices Thoracic Surgeries: Patient denies;: Organ Transplant, Lobectomy Neurologic Surgeries: Patient denies: Neurologic Surgery HEENT Surgeries: Patient denies: Carotid Endarterectomy, Eye Surgery, Tonsilectomy & Adenoidectomy Abdominal Surgeries: Surgical HX of: Colonoscopy (05/2016) Patient denies: Abdominal Surgery, Appendectomy, Cholecystectomy, Gastric Bypass Surgery, EGD, Hernia Repair, Splenectomy Reproductive Surgeries: Patient denies;: Breast Surgery, Section, Dilation and Curettage, Genitourinary Surgery, Gynecologic Surgery, Hysterectomy, Tubal Ligation Orthopedic Surgeries: Patient denies;: Implanted Devices, Orthopedic Surgery, Spinal Surgery, Total Hip Replacement, Total Knee Replacement - Family History Family History: Reports;: Family Cancer (sister), Family Diabetes (FATHER), Family Hypertension - Social History Smoking Status: Current every day smoker Frequency of Alcohol Use: None Type of Drug Use: None Marital Status: Lives With:: Spouse Functional capacity: independent ambulation Exam - Constitutional Exam: Constitutional System: Moderate distress. No tremulousness. Head: Normocephalic, atraumatic. Ears, Nose and Throat System: No evidence of Otitis or Mastoiditis. No epistaxis or discharge Eyes System: Pupils equal, round, and reactive. Extraocular muscles intact. Neck: Supple, without adenopathy, No jugular venous distention. No thyromegaly, neck mass, or prior surgery apparent. Respiratory System: Chest clear to auscultation. Cardiovascular System: Heart with regular rate and rhythm. No murmur. GI System: Abdomen soft, moderately tender throughout the abdomen, especially left lower quadrant. Hypo-active bowel sounds present. Musculoskeletal System: limbs with no pedal edema. Full distal pulses. Neurological System: No discernable sensory deficit. No aphasia Psychiatric System: Conversation is rational Review of systems: A complete 10 system review of systems was obtained and pertinent positives and negatives per HPI Results - Labs Labs: CBC, CMP, mag, UA are all pending - Diagnostic Findings Procedure: CT Abdomen and Pelvis: report reviewed by me (Interval increased fat stranding about the sigmoid colon consistent with diverticulitis. Interval increased size of fluid collection along the inferior aspect of the sigmoid colon which measures approximately 3 x 1.9 x 2.1 cm in width. There is a smaller adjacent collection noted which appears new from the comparison study contains a small amount of air consistent with abscess. There may be some wall thickening of the urinary bladder which reflect secondary cystitis and a probable left ovarian cyst.)
[2016-12-15 14:52] LABS: Basophils % 0.3 % (0.0-0.8); Eosinophils % 0.1 % (0.00-10.9); Hematocrit 32.6 VOL% (35.7-47.0); Hemoglobin 11.3 GM/DL (12.0-16.0); Immature Granulocytes % 0.6 %; Immature Granulocytes Absolute 0.05 #; Lymphocytes # 1.2 10*3/uL (1.4-4.0); Lymphocytes % 13.2 % (21.3-54.2); Mean Corpuscular HGB Conc 34.7 GM/DL (32-36); Mean Corpuscular Hemoglobin 28 PG (27-34); Mean Corpuscular Volume 80.3 FL (87-102); Mean Platelet Volume 9.2 FL (9.6-12.0); Monocytes # 1.1 10*3/uL (0.11-0.8); Monocytes % 12.6 % (1.7-12.7); Neutrophils # 6.4 10*3/uL (1.4-7.4); Neutrophils % 73.2 % (38.7-73.9); Platelet Count 312 T/CUMM (130-400); Red Blood Count 4.06 MC/CUMM (3.8-5.5); Red Cell Distribution Width 12.3 % (9.3-17.3); White Blood Count 8.8 T/CUMM (4-12)
[2016-12-15 15:09] LABS: Alanine Aminotransferase 11 U/L (13-56); Albumin 3.1 G/DL (3.4-5.0); Alkaline Phosphatase 64 U/L (45-117); Aspartate Amino Transferase 8 U/L (0-37); Bilirubin,Total < 0.39 MG/DL (0.2-1.0); Blood Urea Nitrogen 8 MG/DL (7-18); Calcium 8.9 MG/DL (8.5-10.1); Glucose 118 MG/DL (74-106); Osmolality,Calculated 273.7 MOS/KG (273-304); Potassium 3.5 MMOL/L (3.5-5.1); Sodium 138 MMOL/L (136-145); Total Protein 7.3 G/DL (6.4-8.3)
[2016-12-15] MEDS: PROMETHAZINE 25 MG/1 ML VIAL IM PRN (15:23)
[2016-12-15] MEDS: KETOROLAC 15 MG/1 ML VIAL IV PRN ×2 (15:23→22:49)
[2016-12-15 15:52] LABS: Lymphocytes 14 % (20-55); Platelet Estimate Normal; Segmented Neutrophils 77 % (50-85); Total Cells Counted 100
[2016-12-15] MEDS ORDERED: ALBUTEROL 2.5 MG/3 ML NEB RESP TX PRN (15:57)
[2016-12-15] MEDS: POLYETHYLENE GLYCOL POWDER 17 GM PACK PO SCH (17:10)
[2016-12-15] MEDS: SUCRALFATE 1 GM TABLET PO SCH ×2 (17:10→21:22)
[2016-12-15] MEDS: METOCLOPRAMIDE 5 MG TABLET PO SCH ×2 (17:10→21:21)
[2016-12-15] MEDS: ENOXAPARIN 40 MG/0.4 ML SYRINGE SUBCUT SCH (21:22)
[2016-12-15] MEDS: FLUTICASONE/SALMETEROL 250-50 DISKUS 14 DOSE INH SCH (21:22)
[2016-12-16 00:56] LABS: Apearance,Urine Slightly Hazy (Clear); Bilirubin,Urine Negative (Negative); Blood, Urine Moderate mg/dL (Negative); Glucose,Urine (UA) 50 mg/dL (Negative); Ketones,Urine 20 mg/dL (Negative); Nitrite,Urine Negative (Negative); Protein,Urine >=500 MG/DL; RBC,Urine 1074 /HPF (0-4); Urine Color Amber (Yellow); Urine Specific Gravity 1.053 (1.001-1.035); WBC,Urine 11 /HPF (0-6)
[2016-12-16 00:57] LABS: Mucus,Urine Few /LPF (Occasional); Squamous Epithelial Cell,Urine Occasional /HPF (0-10)
[2016-12-16] MEDS: LACTATED RINGERS 1,000 ML IV SCH ×4 (02:15→22:15)
[2016-12-16] MEDS: KETOROLAC 15 MG/1 ML VIAL IV PRN ×2 (06:03→17:56)
[2016-12-16 07:29] LABS: Basophils % 0.3 % (0.0-0.8); Eosinophils # 0.1 10*3/uL (0.0-0.87); Hematocrit 31.1 VOL% (35.7-47.0); Hemoglobin 10.7 GM/DL (12.0-16.0); Immature Granulocytes % 0.3 %; Immature Granulocytes Absolute 0.02 #; Lymphocytes # 1.2 10*3/uL (1.4-4.0); Lymphocytes % 20.6 % (21.3-54.2); Mean Corpuscular HGB Conc 34.4 GM/DL (32-36); Mean Corpuscular Hemoglobin 28 PG (27-34); Mean Corpuscular Volume 80.4 FL (87-102); Mean Platelet Volume 9.2 FL (9.6-12.0); Monocytes # 0.9 10*3/uL (0.11-0.8); Monocytes % 14.2 % (1.7-12.7); Neutrophils # 3.8 10*3/uL (1.4-7.4); Neutrophils % 63.6 % (38.7-73.9); Platelet Count 296 T/CUMM (130-400); Red Blood Count 3.87 MC/CUMM (3.8-5.5); Red Cell Distribution Width 12.1 % (9.3-17.3)
[2016-12-16 07:58] LABS: Magnesium 1.9 MG/DL (1.8-2.4); Osmolality,Calculated 275.5 MOS/KG (273-304); Potassium 3.5 MMOL/L (3.5-5.1)
--- NOTE | 2016-12-16 08:07 | General Surgery Progress Note ---
Assessment and Plan (1) Diverticulitis Status: Acute Assessment and plan: The patient is responding to IV antibiotics. I think she needs to stay in the hospital cool off with antibiotics and plan for sigmoid colectomy during this hospital stay during her smoldering course as an outpatient and inability to resolve her acute infectious problems and delayed for an elective surgery. This was discussed with the patient. She understands increased risk of needing to do an ostomy in this situation. Plan for surgery on Wednesday. Advance diet today and focus on increasing protein intake with the upcoming surgery planned. Current Visit: No Qualifiers: Subjective Patient reports: Present: no new complaints, feels better, pain is less, flatus , bowel movement, afebrile, fever. Absent: diarrhea, blood in stool Narrative: Patient feels much better today. Exam - Constitutional Vitals: Period Temp Pulse Resp BP Sys/Page Pulse Ox Last 24 Hr 96.7 F-97.8 F 71-91 18-20 109-155/71-94 97-98 General appearance: no acute distress, over weight - Head Head exam: Present: normal inspection, normocephalic - Eye Eye exam: Present: EOMI Pupils: Present: SRINIVASAN - ENT ENT exam: Present: normal exam Mouth exam: Present: normal external inspection, normal voice - Neck Neck exam: Present: normal inspection, trachea midline - Respiratory Respiratory exam: Present: clear to auscultation bilaterally. Absent: accessory muscle use, chest wall tenderness - Cardiovascular Cardiovascular exam: Present: RRR. Absent: systolic murmur, tachycardia - GI/Abdominal GI/Abdominal exam: Present: normal bowel sounds, soft. Absent: distended, guarding, tenderness, rebound - Extremities Exam Extremities exam: Present: normal inspection, normal capillary refill - Back Exam Back exam: Present: normal inspection - Neurological Exam Neurological exam: Present: alert, oriented X3 Speech: Present: normal - Skin Skin exam: Present: normal color, warm Results - Labs CBC & BMP: 12/16/16 06:57 12/16/16 06:57
[2016-12-16] MEDS: METOCLOPRAMIDE 5 MG TABLET PO SCH ×4 (09:57→20:56)
[2016-12-16] MEDS: PANTOPRAZOLE 40 MG TABLET PO SCH (09:57)
[2016-12-16] MEDS: MULTIVITAMIN (CENTRUM) TABLET PO SCH (09:57)
[2016-12-16] MEDS: FLUTICASONE/SALMETEROL 250-50 DISKUS 14 DOSE INH SCH ×2 (09:57→21:00)
[2016-12-16] MEDS: SUCRALFATE 1 GM TABLET PO SCH ×4 (09:58→22:16)
[2016-12-16] MEDS: POLYETHYLENE GLYCOL POWDER 17 GM PACK PO SCH (10:00)
[2016-12-16] MEDS: ONDANSETRON 4 MG/2 ML VIAL IV PRN (11:26)
[2016-12-16] MEDS: PROMETHAZINE 25 MG/1 ML VIAL IM PRN ×2 (13:04→17:56)
[2016-12-16] MEDS: ERTAPENEM 1,000 MG in SODIUM CHLORIDE 0.9% 100 ML IV SCH (13:05)
[2016-12-16] MEDS: ENOXAPARIN 40 MG/0.4 ML SYRINGE SUBCUT SCH (20:56)
[2016-12-17] MEDS: LACTATED RINGERS 1,000 ML IV SCH ×3 (06:30→20:52)
[2016-12-17] MEDS: HYDROmorphone 2 MG/1 ML VIAL IV PRN ×2 (09:21→19:28)
[2016-12-17] MEDS: MULTIVITAMIN (CENTRUM) TABLET PO SCH (09:23)
[2016-12-17] MEDS: SUCRALFATE 1 GM TABLET PO SCH ×4 (09:24→22:31)
[2016-12-17] MEDS: tiZANidine 4 MG TABLET PO PRN ×2 (09:24→19:29)
[2016-12-17] MEDS: hydrOXYzine HCL 25 MG TABLET PO PRN (09:24)
[2016-12-17] MEDS: METOCLOPRAMIDE 5 MG TABLET PO SCH ×4 (09:24→20:49)
[2016-12-17] MEDS: PANTOPRAZOLE 40 MG TABLET PO SCH (09:25)
[2016-12-17] MEDS: POLYETHYLENE GLYCOL POWDER 17 GM PACK PO SCH (09:25)
[2016-12-17] MEDS: PROMETHAZINE 25 MG/1 ML VIAL IM PRN (09:28)
[2016-12-17] MEDS: FLUTICASONE/SALMETEROL 250-50 DISKUS 14 DOSE INH SCH ×2 (09:37→20:50)
[2016-12-17] MEDS: ERTAPENEM 1,000 MG in SODIUM CHLORIDE 0.9% 100 ML IV SCH (13:21)
--- NOTE | 2016-12-17 13:32 | General Surgery Progress Note ---
Assessment and Plan (1) Diverticulitis Status: Acute Assessment and plan: Continue IV antibiotics. Plan for OR next Wednesday. We will repeat CT scan on Wednesday prior to surgery in case there is an abscess that needs to be drained percutaneously. Current Visit: No Qualifiers: Subjective Patient reports: Present: no new complaints, feels better, pain is less, nausea , vomiting, afebrile Exam - Constitutional Vitals: Period Temp Pulse Resp BP Sys/Page Pulse Ox Last 24 Hr 97.0 F-98.6 F 62-104 18-20 104-160/73-94 98-100 General appearance: no acute distress, over weight - Head Head exam: Present: normal inspection, normocephalic - Eye Eye exam: Present: EOMI Pupils: Present: SRINIVASAN - ENT ENT exam: Present: normal exam Mouth exam: Present: normal external inspection, normal voice - Neck Neck exam: Present: normal inspection, trachea midline - Respiratory Respiratory exam: Present: accessory muscle use, chest wall tenderness. Absent : clear to auscultation bilaterally - Cardiovascular Cardiovascular exam: Present: RRR. Absent: systolic murmur, tachycardia - GI/Abdominal GI/Abdominal exam: Present: tenderness (Decreased left lower quadrant tenderness which is focal), soft - Extremities Exam Extremities exam: Present: normal inspection, normal capillary refill - Back Exam Back exam: Present: normal inspection - Neurological Exam Neurological exam: Present: alert, oriented X3 Speech: Present: normal - Skin Skin exam: Present: normal color, warm Results - Labs CBC & BMP: 12/16/16 06:57 12/16/16 06:57
[2016-12-17] MEDS: ENOXAPARIN 40 MG/0.4 ML SYRINGE SUBCUT SCH (20:49)
[2016-12-18] MEDS: HYDROmorphone 2 MG/1 ML VIAL IV PRN (04:41)
[2016-12-18] MEDS: LACTATED RINGERS 1,000 ML IV SCH ×3 (04:41→20:34)
[2016-12-18] MEDS: METOCLOPRAMIDE 5 MG TABLET PO SCH ×4 (08:13→20:28)
[2016-12-18] MEDS: SUCRALFATE 1 GM TABLET PO SCH ×4 (08:18→20:28)
[2016-12-18] MEDS: FLUTICASONE/SALMETEROL 250-50 DISKUS 14 DOSE INH SCH ×2 (08:18→20:29)
[2016-12-18] MEDS: POLYETHYLENE GLYCOL POWDER 17 GM PACK PO SCH (09:11)
[2016-12-18] MEDS: PANTOPRAZOLE 40 MG TABLET PO SCH (09:11)
[2016-12-18] MEDS: MULTIVITAMIN (CENTRUM) TABLET PO SCH (09:11)
--- NOTE | 2016-12-18 11:48 | General Surgery Progress Note ---
Assessment and Plan (1) Diverticulitis Status: Acute Assessment and plan: Continue IV antibiotics and diet as tolerated Repeat CT scan abdomen and pelvis on Wednesday but can be done sooner if she is worse over the weekend Current Visit: No Qualifiers: Subjective Patient reports: Present: no new complaints, still having pain, afebrile Exam - Constitutional Vitals: Period Temp Pulse Resp BP Sys/Page Pulse Ox Last 24 Hr 97.4 F-97.8 F 71-87 18-20 104-132/64-86 92-97 General appearance: no acute distress, over weight - Head Head exam: Present: normal inspection, normocephalic - Eye Eye exam: Present: EOMI Pupils: Present: SRINIVASAN - ENT ENT exam: Present: normal exam Mouth exam: Present: normal external inspection, normal voice - Neck Neck exam: Present: normal inspection, trachea midline - Respiratory Respiratory exam: Present: clear to auscultation bilaterally. Absent: accessory muscle use, chest wall tenderness - Cardiovascular Cardiovascular exam: Present: RRR. Absent: systolic murmur, tachycardia - GI/Abdominal GI/Abdominal exam: Present: normal bowel sounds, tenderness (Minimal left lower quadrant and right lower quadrant tenderness), soft. Absent: guarding, rebound - Extremities Exam Extremities exam: Present: normal inspection, normal capillary refill - Back Exam Back exam: Present: normal inspection - Neurological Exam Neurological exam: Present: alert, oriented X3 Speech: Present: normal - Skin Skin exam: Present: normal color, warm Results - Labs CBC & BMP: 12/16/16 06:57 12/16/16 06:57
[2016-12-18] MEDS: ERTAPENEM 1,000 MG in SODIUM CHLORIDE 0.9% 100 ML IV SCH (12:59)
[2016-12-18] MEDS: ENOXAPARIN 40 MG/0.4 ML SYRINGE SUBCUT SCH (20:28)
[2016-12-19] MEDS: LACTATED RINGERS 1,000 ML IV SCH ×3 (05:35→20:49)
[2016-12-19] MEDS: METOCLOPRAMIDE 5 MG TABLET PO SCH ×4 (11:09→20:15)
[2016-12-19] MEDS: SUCRALFATE 1 GM TABLET PO SCH ×4 (11:09→20:14)
--- NOTE | 2016-12-19 11:15 | General Surgery Progress Note ---
Assessment and Plan - Time spent with patient Time spent with patient: Less than 30 minutes (1) Nausea and vomiting Status: Acute Assessment and plan: Ms. Palacios is a 61-year-old -[place] female with history of COPD and recurrent diverticulitis admitted by Dr. Mesa as a direct admission from his office with worsening diverticular abscess. Patient will be started on IV antibiotics, pain and nausea control. Once her medicines are reconciled will restart her appropriate home medicines. Still awaiting her labs and UA and will adjust medicines as needed. Dr. Mesa will try to cool patient off over the next several days. Dr. Mesa will see and examine patient and further recommendations to follow. 12/19/2016 61-year-old -[place] female with history of COPD and bipolar disorder admitted on 12/15/2016 with worsening diverticulitis with phlegmon changes and small abscesses adjacent to the colon. She is receiving IV antibiotics and pain and nausea control. She left the hospital last week prematurely due to a in her family and Dr. Mesa is trying to cool her off prior to surgery for Wednesday. CT scan is scheduled for Wednesday morning. Patient did receive CT contrast this morning which should help with her bowels. She is afebrile and her vital signs are stable and her last set of labs had a normal white count. Will reorder labs for Wednesday along with the CT scan. Patient is starting to show signs of agitation again so I hope that she will stay in the hospital this time and await surgical intervention. We will go ahead and order some Ativan as needed for her agitation. Dr. Muse has seen and examined patient for Dr. Mesa. Current Visit: Yes (2) Abdominal pain Status: Acute Current Visit: Yes (3) History of diverticulitis of colon Status: Chronic Current Visit: No (4) COPD (chronic obstructive pulmonary disease) Status: Chronic Current Visit: No Qualifiers: COPD type: unspecified COPD Qualified Code(s): J44.9 - Chronic obstructive pulmonary disease, unspecified (5) Sigmoid diverticulitis Status: Acute Current Visit: No Subjective Narrative: Patient is starting to get aggravated again today. She is complaining that she has not had a bowel movement and she is worried about surgery next week. She was given CT contrast this morning. Exam - Constitutional Vitals: Period Temp Pulse Resp BP Sys/Page Pulse Ox Last 24 Hr 97.1 F-99.6 F 77-95 18-20 104-132/65-81 90-98 Exam: 61-year-old -[place] female, anxious, oriented Chest clear CV regular rate and rhythm Abdomen mild tenderness in lower abdomen Extremities no edema Results - Labs CBC & BMP: 12/16/16 06:57 12/16/16 06:57
[2016-12-19] MEDS ORDERED: LORazepam 2 MG/1 ML VIAL IV PRN (11:16)
[2016-12-19] MEDS: POLYETHYLENE GLYCOL POWDER 17 GM PACK PO SCH (11:34)
[2016-12-19] MEDS: FLUTICASONE/SALMETEROL 250-50 DISKUS 14 DOSE INH SCH ×2 (11:40→20:15)
[2016-12-19] MEDS: HYDROmorphone 2 MG/1 ML VIAL IV PRN (11:41)
[2016-12-19] MEDS: PANTOPRAZOLE 40 MG TABLET PO SCH (13:35)
[2016-12-19] MEDS: MULTIVITAMIN (CENTRUM) TABLET PO SCH (13:35)
[2016-12-19] MEDS: ERTAPENEM 1,000 MG in SODIUM CHLORIDE 0.9% 100 ML IV SCH (14:01)
[2016-12-19] MEDS: ACETAMINOPHEN 325 MG TABLET PO PRN (15:43)
[2016-12-19] MEDS: ENOXAPARIN 40 MG/0.4 ML SYRINGE SUBCUT SCH (20:16)
[2016-12-20] MEDS: LACTATED RINGERS 1,000 ML IV SCH ×4 (01:15→20:56)
[2016-12-20] MEDS: HYDROmorphone 2 MG/1 ML VIAL IV PRN ×5 (01:54→21:12)
[2016-12-20] MEDS: METOCLOPRAMIDE 5 MG TABLET PO SCH ×5 (07:45→21:11)
[2016-12-20] MEDS: SUCRALFATE 1 GM TABLET PO SCH ×4 (07:45→21:12)
[2016-12-20] MEDS: POLYETHYLENE GLYCOL POWDER 17 GM PACK PO SCH (08:09)
[2016-12-20] MEDS: MULTIVITAMIN (CENTRUM) TABLET PO SCH (08:09)
[2016-12-20] MEDS: FLUTICASONE/SALMETEROL 250-50 DISKUS 14 DOSE INH SCH ×2 (08:09→21:12)
[2016-12-20] MEDS: PANTOPRAZOLE 40 MG TABLET PO SCH (08:10)
--- NOTE | 2016-12-20 11:10 | General Surgery Progress Note ---
Assessment and Plan (1) Sigmoid diverticulitis Status: Acute Assessment and plan: Impression: Diverticulitis Plan: Continue antibiotics. CT scan in the morning. Current Visit: No Subjective Patient reports: Present: no new complaints Narrative: No changes. Patient states she is still hurting requiring pain medicines. Despite that she wants to leave the hospital for periods of time to get her hair done. She has been tolerating clears. Exam - Constitutional Vitals: Period Temp Pulse Resp BP Sys/Page Pulse Ox Last 24 Hr 97.7 F-100.6 F 92-110 18-23 118-145/70-86 92-98 General appearance: no acute distress - Head Head exam: Present: normocephalic - Respiratory Respiratory exam: Present: clear to auscultation bilaterally - Cardiovascular Cardiovascular exam: Present: RRR - GI/Abdominal GI/Abdominal exam: Present: soft (Moderate tenderness to palpation left lower quadrant suprapubic regions with no peritoneal signs.) - Extremities Exam Extremities exam: Present: normal inspection - Back Exam Back exam: Present: normal inspection - Neurological Exam Neurological exam: Present: alert, oriented X3 Speech: Present: normal - Skin Skin exam: Present: normal color Results - Labs CBC & BMP: 12/16/16 06:57 12/16/16 06:57
[2016-12-20] MEDS: ONDANSETRON 4 MG/2 ML VIAL IV PRN (12:35)
[2016-12-20] MEDS: ERTAPENEM 1,000 MG in SODIUM CHLORIDE 0.9% 100 ML IV SCH (13:55)
[2016-12-20] MEDS: ERGOCALCIFEROL 50,000 UNIT CAPSULE PO SCH (16:21)
[2016-12-20] MEDS: ENOXAPARIN 40 MG/0.4 ML SYRINGE SUBCUT SCH (21:11)
[2016-12-21] MEDS: ACETAMINOPHEN 325 MG TABLET PO PRN ×2 (01:05→14:18)
[2016-12-21] MEDS: HYDROmorphone 2 MG/1 ML VIAL IV PRN ×4 (01:16→22:09)
[2016-12-21] MEDS: LACTATED RINGERS 1,000 ML IV SCH ×4 (02:06→19:33)
[2016-12-21 04:54] LABS: Basophils % 0.3 % (0.0-0.8); Eosinophils # 0.1 10*3/uL (0.0-0.87); Eosinophils % 0.4 % (0.00-10.9); Hematocrit 28.4 VOL% (35.7-47.0); Hemoglobin 9.7 GM/DL (12.0-16.0); Immature Granulocytes % 1.7 %; Immature Granulocytes Absolute 0.22 #; Lymphocytes # 1.2 10*3/uL (1.4-4.0); Lymphocytes % 9.4 % (21.3-54.2); Mean Corpuscular HGB Conc 34.2 GM/DL (32-36); Mean Corpuscular Hemoglobin 28 PG (27-34); Mean Corpuscular Volume 81.4 FL (87-102); Mean Platelet Volume 9.5 FL (9.6-12.0); Monocytes # 1.8 10*3/uL (0.11-0.8); Monocytes % 13.5 % (1.7-12.7); Neutrophils # 9.8 10*3/uL (1.4-7.4); Neutrophils % 74.7 % (38.7-73.9); Platelet Count 324 T/CUMM (130-400); Red Blood Count 3.49 MC/CUMM (3.8-5.5); White Blood Count 13.2 T/CUMM (4-12)
[2016-12-21 05:21] LABS: Magnesium 1.6 MG/DL (1.8-2.4); Osmolality,Calculated 276.4 MOS/KG (273-304); Potassium 3.4 MMOL/L (3.5-5.1)
[2016-12-21 05:23] LABS: Giant Platelets Few; Hypochromasia 1+; Lymphocytes 10 % (20-55); Platelet Estimate Adequate; Segmented Neutrophils 79 % (50-85); Total Cells Counted 100
[2016-12-21] MEDS: METOCLOPRAMIDE 5 MG TABLET PO SCH ×4 (08:43→20:36)
[2016-12-21] MEDS: SUCRALFATE 1 GM TABLET PO SCH ×4 (08:43→20:37)
--- NOTE | 2016-12-21 10:12 | General Surgery Progress Note ---
Assessment and Plan (1) Diverticulitis Status: Acute Assessment and plan: This patient has smoldering sigmoid diverticulitis and I do not think it will be possible to get this totally better prior to an operation. I feel like we have maximized medical therapy and there is no abscess that can be drained in the best thing to do at this point in time is to perform a sigmoid colectomy with planned primary anastomosis in the operating room tomorrow. I did discuss with the patient the slight increased risk of an open procedure as opposed to robotic assisted laparoscopic surgery and also the possibility of an ostomy given the fact that we cannot get this completely cool off prior to surgery. I have discussed the risks, benefits, and alternatives of the operation, and the expected outcomes have been reviewed. The patient understands and would like to proceed with the operation tomorrow. I did reiterate with the patient that the ideal situation is to treat with antibiotics and completely cool off the inflammation and perform an elective sigmoid colectomy but she has been readmitted multiple times and I think that the best thing we can do at this point time is just to try to do a sigmoid colectomy after giving her this week of inpatient antibiotics. She has not recovered enough to be discharged home and pursue an elective course. Patient understands all this. Current Visit: No Qualifiers: Subjective Patient reports: Present: no new complaints, feels better, pain is less, tolerating liquids well, afebrile. Absent: nausea, vomiting Exam - Constitutional Vitals: Period Temp Pulse Resp BP Sys/Page Pulse Ox Last 24 Hr 97.8 F-100.5 F 86-99 18-20 108-150/65-79 91-97 General appearance: no acute distress, over weight - Head Head exam: Present: normal inspection, normocephalic - Eye Eye exam: Present: EOMI Pupils: Present: SRINIVASAN - ENT ENT exam: Present: normal exam Mouth exam: Present: normal external inspection, normal voice - Neck Neck exam: Present: normal inspection, trachea midline - Respiratory Respiratory exam: Present: clear to auscultation bilaterally. Absent: accessory muscle use, chest wall tenderness - Cardiovascular Cardiovascular exam: Present: RRR. Absent: systolic murmur, tachycardia - GI/Abdominal GI/Abdominal exam: Present: tenderness (There is focal tenderness in the left lower quadrant. No peritoneal signs), soft. Absent: rebound - Extremities Exam Extremities exam: Present: normal inspection, normal capillary refill - Back Exam Back exam: Present: normal inspection - Neurological Exam Neurological exam: Present: alert, oriented X3 Speech: Present: normal - Skin Skin exam: Present: normal color, warm Results - Labs CBC & BMP: 12/21/16 04:01 12/21/16 04:01 - Diagnostic Findings Procedure: CT Abdomen and Pelvis: image reviewed by me (There is no progressive abscess but there is still a large phlegmon in the sigmoid colon. Contrast passes through this area. No free air.)
[2016-12-21] MEDS: PANTOPRAZOLE 40 MG TABLET PO SCH (11:46)
[2016-12-21] MEDS: POLYETHYLENE GLYCOL POWDER 17 GM PACK PO SCH (11:48)
[2016-12-21] MEDS: FLUTICASONE/SALMETEROL 250-50 DISKUS 14 DOSE INH SCH ×2 (11:49→20:36)
[2016-12-21] MEDS: MULTIVITAMIN (CENTRUM) TABLET PO SCH (11:50)
[2016-12-21] MEDS: ERTAPENEM 1,000 MG in SODIUM CHLORIDE 0.9% 100 ML IV SCH (12:51)
--- NOTE | 2016-12-21 12:51 | CT Report ---
History: Diverticulitis Date: 12/21/2016 Study: CT abdomen and pelvis with IV and oral contrast Comparison exam: Multiple studies, including the most recent CT abdomen and pelvis of December 15, 2016 Technique: Spiral CT sections were obtained from the lung bases to the pubic symphysis following oral contrast and 100 mL Omnipaque [address] exam was performed using one or more of the following dose reduction techniques: Automated exposure control, adjustment of the mA and/or kV according to patient size, or use of iterative reconstruction technique. CT abdomen: There is some mild dependent atelectasis in the lower lobes, slightly increased. The liver, spleen, pancreas, adrenal glands, kidneys, bile ducts, and gallbladder are unchanged from the recent comparison studies. Once again there is noted to be a small indeterminate 8 mm low-density superiorly in the left lobe of the liver. Rounded water density renal cysts are present bilaterally as before. There is no aortic aneurysm. There is some mild periaortic retroperitoneal lymphadenopathy which is similar. There is diffuse colon wall thickening and pericolonic inflammatory reaction at the sigmoid colon level compatible with prominent changes of diverticulitis. There are increased changes of phlegmon formation at the inferior margin of the colon compared to the most recent comparison study. There is a lobular water density area immediately anterior to the left psoas muscle and abutting the left adnexal region compatible with abscess at 4.2 cm diameter, previously at 3.5 cm maximum diameter, presumably abscess. There is also a abscess containing oral contrast at the inferior margin of the sigmoid colon, measuring at least 4.[address] pelvis: Numerous partially calcified fibroids are noted in the uterus. Impression: Worsening changes of diverticulitis of the sigmoid colon level. There is a 4.1 cm abscess at the posterior inferior margin of the sigmoid colon more proximally which has a fistulous connection to the lumen of the colon and contains oral contrast. There is increased phlegmon at the sigmoid colon level. Other details above PROCEDURE INTERPRETED AT [facility] DEPARTMENT OF RADIOLOGY Final Report Signed by: Dr. Barbie Chambers
[2016-12-22] MEDS: HYDROmorphone 2 MG/1 ML VIAL IV PRN ×2 (01:22→06:16)
[2016-12-22] MEDS: LACTATED RINGERS 1,000 ML IV SCH ×7 (01:25→19:59)
[2016-12-22] MEDS ORDERED: ALVIMOPAN 12 MG CAPSULE PO ONE (08:00)
[2016-12-22 08:20] LABS: Apearance,Urine CLEAR (Clear); Bilirubin,Urine Negative (Negative); Blood, Urine Moderate mg/dL (Negative); Glucose,Urine (UA) Negative (Negative); Ketones,Urine 20 mg/dL (Negative); Mucus,Urine Occasional /LPF (Occasional); Nitrite,Urine Negative (Negative); Protein,Urine Negative; RBC,Urine 19 /HPF (0-4); Squamous Epithelial Cell,Urine Occasional /HPF (0-10); Urine Color Yellow (Yellow); Urine Urobilinogen < 2.0 EU/DL (0.2-1.0); WBC,Urine 2 /HPF (0-6)
[2016-12-22] MEDS ORDERED: METHYLENE BLUE 10 ML VIAL IV ONE ×2 (08:52→09:20)
--- NOTE | 2016-12-22 09:29 | Operative Note ---
Date of procedure: 12/22/16 Pre-op diagnosis: Severe diverticulitis with pelvic abscess Post-op diagnosis: same Procedure: 61-year-old black female who been taken to surgery and found to have significant diverticulitis and an abscess. I was asked to come evaluate the patient intraoperatively because the patient had blood in urine when the plant passed the catheter. She was initially attempted robotically but has been converted to open procedure. She has very serious case of diverticulitis with an abscess. This is all been drained and Dr. Mesa was concerned about the ureter especially the left. He thought he had seen it but he would like me to identify this and evaluate this. I scrubbed and came to the field. There is a lot of reaction in inflammatory tissue in the pelvis. The ureter was identified up high in the retroperitoneum and encircled with vessel loop. This was then dissected down into the pelvis where it curves down past the pelvic brim laterally below the uterus and down to the cervix. It it is intact. The bladder was then filled up with 500 cc of methylene blue infused saline. There is no extravasation and no methylene blue is seen in the pelvis or the operative field. This is then drained. I suspect the hematuria is from the bladder just from the inflammation. Apparently the abscess was just superior to the left side. And nothing for it further from a urologic standpoint needs to be done. The right ureter did not need to be explored. Vessel loop was removed. The case was turned back over to Dr. Mesa. The reader is referred to his procedures post my exploration. Anesthesia: GETA Surgeon / Physician: Man Serra Estimated blood loss: none Specimens: none sent Condition: stable Disposition: no change Results - Labs CBC & BMP: 12/21/16 04:01 12/21/16 04:01 Discharge Plan - Discharge Medications No Action Ergocalciferol (Vitamin D2) [Vitamin D2] 50,000 unit PO ALLEN Omeprazole Magnesium [Prilosec Otc] 20 mg PO QAM Multivitamin [Multivitamins] 1 tablet PO QAM Fluticasone/Salmeterol 250-50 [Advair 250-50] 1 puff INH BID Albuterol Inhaler [Proventil Inhaler] 2 puff INH Q6H PRN PRN Reason: Shortness Of Breath/Wheezing hydrOXYzine HCl [Hydroxyzine HCl] 25 mg PO TID PRN PRN Reason: Itching Promethazine Tab [Phenergan Tab] 25 mg PO Q4H PRN PRN Reason: Nausea/Vomiting Metoclopramide Tab [Reglan Tab] 5 mg PO ACHS #40 tablet Sucralfate Tab [Carafate Tab] 1 gm PO ACHS #40 tablet HYDROcodone/ACETAMIN 7.5-325 [[place] 7.5-325] 1 tablet PO Q4H PRN #30 tablet PRN Reason: Pain Moderate (4-7) Ondansetron Tab [Zofran Tab] 4 mg PO Q6H PRN PRN Reason: Nausea Polyethylene Glycol Powder [Miralax] 17 gm PO DAILY Tizanidine HCl 8 mg PO TID PRN PRN Reason: MUSCLE SPASMS Levofloxacin Tab [Levaquin Tab] 500 mg PO DAILY #14 tablet metroNIDAZOLE TAB [Flagyl Cap/Tab] 500 mg PO TID #42 tablet - Follow Up or Referral - Forms/Instructions
[2016-12-22] MEDS ORDERED: SEVOFLURANE 1 UNIT/15 MINUTE INH ONE (10:44)
[2016-12-22] MEDS ORDERED: PROPOFOL 200 MG/20 ML VIAL IV ONE (10:44)
[2016-12-22] MEDS ORDERED: HYDROmorphone 2 MG/1 ML VIAL ONE ×2 (10:45→10:55)
[2016-12-22] MEDS ORDERED: MIDAZOLAM 2 MG/2 ML VIAL ONE (10:45)
[2016-12-22] MEDS ORDERED: NEOSTIGMINE 10 MG/10 ML VIAL ONE (10:45)
[2016-12-22] MEDS ORDERED: KETOROLAC 30 MG/1 ML VIAL ONE (10:45)
[2016-12-22] MEDS ORDERED: GLYCOPYRROLATE 0.4 MG/2 ML VIAL ONE (10:45)
[2016-12-22] MEDS ORDERED: ONDANSETRON 4 MG/2 ML VIAL ONE (10:45)
[2016-12-22] MEDS ORDERED: fentaNYL 100 MCG/2 ML VIAL ONE (10:45)
[2016-12-22] MEDS ORDERED: ACETAMINOPHEN 1,000 MG/100 ML VIAL IV ONE (10:46)
[2016-12-22] MEDS ORDERED: LACTATED RINGERS 1,000 ML IV ONE (10:46)
[2016-12-22] MEDS ORDERED: ROCURONIUM 100 MG/10 ML VIAL IV ONE (10:46)
[2016-12-22] MEDS ORDERED: HYDROmorphone 2 MG/1 ML VIAL IV PRN (10:49)
--- NOTE | 2016-12-22 11:08 | Operative Note ---
Date of procedure: 12/22/16 Pre-op diagnosis: Persistent unremitting sigmoid diverticulitis Post-op diagnosis: same Procedure: Preoperative diagnosis Persistent unremitting sigmoid diverticulitis that failed medical management Postoperative diagnosis Same Procedures performed 1. Robotic assisted laparoscopic drainage of abdominal abscess with cultures 2. Attempted robotic assisted laparoscopic sigmoid colectomy with conversion to open procedure 3. Exploratory laparotomy with sigmoid colectomy and end colostomy (Remy's procedure) 4. Exploration of left ureter 22 modifier Findings After the patient was placed under general anesthesia a firm mass could be palpated in the left lower quadrant there was not readily apparent on physical exam with her awake. The dissection was not possible to be done with robotic assisted laparoscopic surgery so after the abscesses were drained and washed out and cultured I converted to exploratory laparotomy incision. The case was started robotically with robotic assisted laparoscopic surgery. During mobilization of the sigmoid colon off of the pelvic sidewall a large abscess cavity was entered and a large amount of pus was drained and multiple abscesses were actually found in this location. Cultures were taken from this purulent fluid. A lateral to medial dissection was performed in the adnexa and retroperitoneum was extremely densely adherent to the sigmoid colon at the sigmoid groove coursing down into the pelvis. The sigmoid colon was extremely firm and difficult to dissected and made the case take more than twice usual length of time. Anesthesia team noticed some hematuria after the initial Cabrera catheter was placed and some additional hematuria occurred during this dissection. The bladder was evaluated and did not appear to be injured. The left ureter was explored starting at the inferior pole of the kidney and finding the ureter in this location. I felt like I was able to find the ureter however with manipulation it did not undulate normally. Methylene blue was injected IV and and the urine did have a blue tint and no blue dye was seen welling up into the abdominal cavity. Because of the hematuria and the difficulty of the dissection I asked Dr. Serra to come and assist in the explored the left ureter more fully and also instilled 400 cc of methylene blue in the bladder and there is no evidence of leaking or injury. A sigmoid colectomy with end colostomy was performed in the rectal stump was tagged with a 0 Prolene suture. The abdomen was washed out and a IDALIA drain was left in the abscess area. Blood loss 200 mL Surgeon Mesa Intraoperative consultation Dr. Man Serra Complications None apparent Specimen Sigmoid colon Cultures Anesthesia GETA Indications Failure of medical management to treat acute sigmoid diverticulitis Description of procedure The patient was taken to the operating room and transferred to the operating table in the supine position. Pressure points were padded and SCDs were placed to bilateral lower extremities. General endotracheal anesthesia was administered. A Cabrera catheter was placed and some blood was noted within the urine after Cabrera catheter was placed by the OR team and anesthesia. Patient was placed in lithotomy. The abdomen was prepped chlorhexidine and draped sterilely. Preoperative antibiotics were administered, and a timeout was performed. On examination of the abdomen after the patient was relaxed under general anesthesia a large mass could be palpated in the suprapubic region and left lower quadrant. The abdomen was entered in a right paramedian location above the umbilicus with a Veress needle. An 8 mm skin incision was made with an 11 blade scalpel and penetrating towel clips were used to grasp the abdominal wall skin. The Veress needle was used to enter the peritoneal cavity confirmed by double click technique. Aspiration was negative. Saline drop test confirmed intraperitoneal location. The abdomen was insufflated to 15 mmHg with an initial insufflation pressure of 2 mmHg. The Veress needle was removed and an 8 mm robotic trocar was placed blindly. Diagnostic laparoscopy was performed. There is no evidence of Veress needle or trocar injury. A 12 mm robotic trocar was placed in the right lower quadrant and an additional 8 mm robotic trocar was placed in the midepigastric region. An physiotherapy assistant 5 mm trocar was placed in the right abdomen. The robot was then docked and I left the bedside portion of the procedure and went to the console. At this point we saw was a very adherent sigmoid colon to the pelvic sidewall on the left side and this was mobilized using a lateral to medial dissection. Several different abscess cavities were encountered during this dissection and a large amount of pus was drained. A trap was used to culture the drainage and send it to the lab. These abscesses were drained and washed out. I attempted to continue dissection robotically however it became apparent that this would not be possible because of how firmly the colon was stuck to the pelvic sidewall and the need to identify the ureter during the dissection. The robot was undocked and the trochars were removed. I scrubbed back into the bedside portion of the case. A midline laparotomy incision was made with a 10 blade scalpel. Electrocautery was used to dissected subcutaneous tissues and the fascia was opened with electrocautery. A Bookwalter retractor was then placed. The patient was placed in Trendelenburg and right side rolled down position. The bowel was retracted out of the pelvis and there was some adhesions between the small bowel and the colon that were able to be taken down with blunt dissection. There was no injury to the small bowel. A lateral to medial dissection was completed and this was extremely difficult because of the amount of inflammation and fibrotic reaction that it occurred in this location especially in the sigmoid groove going into the retroperitoneum and the pelvis. At this point I decided to resect up higher and mobilize the white line of Toldt to get the colon off of the retroperitoneum and abdominal sidewall. At this point I was able to find the inferior pole of the left kidney and what I thought was the ureter coming through the retroperitoneum. However, the ureter did not undulate during manipulation with DeBakey forceps. I attempted to trace this down further. The patient did have some more hematuria during the operation. The bladder was inspected again and did not appear to be injured. The colon was mobilized distally without too much difficulty so I decided to create a window in the mesentery with electrocautery and a contour stapler was used to staple the distal rectum off and was then tagged with a 0 Prolene suture. Prior to dividing the mesentery I asked Dr. Man Serra to come in to evaluate the left ureter and bladder to ensure that there was no injury. I also gave the patient IV methylene blue or rather asked anesthesia to and the urine did turn slightly blue and there was no blue dye along the course of the ureter and the abdominal cavity. Dr. Serra then came into the room and further explore the left ureter and bladder including injection of the bladder with 400 cc of water with methylene blue and there was no evidence of leak in the bladder and the ureter looked okay and was uninjured. Please see Dr. Serra note for full details of his portion of the procedure. The mesentery of the colon was then divided with a LigaSure device and the proximal colon was divided back to healthy bowel in the descending colon. The retractors were then removed the abdominal cavity was washed out with copious irrigation until the effluent was clear. The colon appeared to be well mobilized for an ostomy. A [place] of skin was incised the left lower quadrant of the abdomen through the trans-rectus approach in a Bovie electrocautery was used to divide the subcutaneous tissues. The fascia was opened in a cruciate incision and the rectus muscle was without dividing any of the muscle. The posterior fascia was then opened in this location with electrocautery and 2 fingers easily passed through this incision. A Tammy was then used to grasp the distal colon it was pulled through the incision. The specimen was sent to pathology. The midline fascia was then closed with 2 separate pieces of #1 PDS running suture non-looped starting at each end of the midline incision and tied 4 cm below the umbilicus. The midline incision was washed out and packed with a wet-to-dry dressing. The robotic trocar incisions were closed with skin clips. The wounds were covered and the ostomy was then matured with 3-0 Vicryl sutures. An ostomy bag was applied. The patient's Cabrera was left in place and she was awakened from anesthesia and transferred to recovery. A 22 modifier was added to this case because of the acute inflammation and the chronic fibrotic reaction as well the dissection was more difficult than usual and made the case take more than twice usual length of time. Postoperative plan Await return of bowel function Pain control Anesthesia: JOHN Surgeon / Physician: Freddy Mesa Estimated blood loss: other (200 mL) Specimens: other (1. cultures 2. sigmoid colon) Condition: stable Disposition: PACU Results - Labs CBC & BMP: 12/21/16 04:01 12/21/16 04:01 Discharge Plan - Discharge Medications No Action Ergocalciferol (Vitamin D2) [Vitamin D2] 50,000 unit PO ALLEN Omeprazole Magnesium [Prilosec Otc] 20 mg PO QAM Multivitamin [Multivitamins] 1 tablet PO QAM Fluticasone/Salmeterol 250-50 [Advair 250-50] 1 puff INH BID Albuterol Inhaler [Proventil Inhaler] 2 puff INH Q6H PRN PRN Reason: Shortness Of Breath/Wheezing hydrOXYzine HCl [Hydroxyzine HCl] 25 mg PO TID PRN PRN Reason: Itching Promethazine Tab [Phenergan Tab] 25 mg PO Q4H PRN PRN Reason: Nausea/Vomiting Metoclopramide Tab [Reglan Tab] 5 mg PO ACHS #40 tablet Sucralfate Tab [Carafate Tab] 1 gm PO ACHS #40 tablet HYDROcodone/ACETAMIN 7.5-325 [[place] 7.5-325] 1 tablet PO Q4H PRN #30 tablet PRN Reason: Pain Moderate (4-7) Ondansetron Tab [Zofran Tab] 4 mg PO Q6H PRN PRN Reason: Nausea Polyethylene Glycol Powder [Miralax] 17 gm PO DAILY Tizanidine HCl 8 mg PO TID PRN PRN Reason: MUSCLE SPASMS Levofloxacin Tab [Levaquin Tab] 500 mg PO DAILY #14 tablet metroNIDAZOLE TAB [Flagyl Cap/Tab] 500 mg PO TID #42 tablet - Follow Up or Referral - Forms/Instructions
[2016-12-22] MEDS ORDERED: PROMETHAZINE 25 MG/1 ML VIAL IM PRN (11:31)
[2016-12-22] MEDS: SUCRALFATE 1 GM TABLET PO SCH ×3 (11:37→20:25)
[2016-12-22] MEDS: POLYETHYLENE GLYCOL POWDER 17 GM PACK PO SCH (11:38)
[2016-12-22] MEDS: METOCLOPRAMIDE 5 MG TABLET PO SCH (11:42)
[2016-12-22] MEDS: MULTIVITAMIN (CENTRUM) TABLET PO SCH (11:43)
[2016-12-22] MEDS: PANTOPRAZOLE 40 MG TABLET PO SCH (11:44)
[2016-12-22] MEDS: ONDANSETRON 4 MG/2 ML VIAL IV PRN (12:05)
[2016-12-22] MEDS: KETOROLAC 15 MG/1 ML VIAL IV SCH ×3 (12:09→23:02)
[2016-12-22 12:19] LABS: Basophils % 0.2 % (0.0-0.8); Eosinophils % 0.1 % (0.00-10.9); Hematocrit 30.2 VOL% (35.7-47.0); Hemoglobin 10.2 GM/DL (12.0-16.0); Immature Granulocytes % 1.1 %; Immature Granulocytes Absolute 0.21 #; Lymphocytes # 0.9 10*3/uL (1.4-4.0); Lymphocytes % 4.9 % (21.3-54.2); Mean Corpuscular HGB Conc 33.8 GM/DL (32-36); Mean Corpuscular Hemoglobin 28 PG (27-34); Mean Corpuscular Volume 81.8 FL (87-102); Monocytes # 1.4 10*3/uL (0.11-0.8); Monocytes % 7.5 % (1.7-12.7); Neutrophils # 15.9 10*3/uL (1.4-7.4); Neutrophils % 86.2 % (38.7-73.9); Platelet Count 442 T/CUMM (130-400); Red Blood Count 3.69 MC/CUMM (3.8-5.5); Red Cell Distribution Width 13.1 % (9.3-17.3); White Blood Count 18.4 T/CUMM (4-12)
[2016-12-22 12:36] LABS: Calcium 7.8 MG/DL (8.5-10.1); Osmolality,Calculated 273.8 MOS/KG (273-304); Potassium 3.9 MMOL/L (3.5-5.1)
[2016-12-22] MEDS: HYDROmorphone PCA 30 MG/30 ML SYRINGE IV SCH (14:21)
[2016-12-22] MEDS: ERTAPENEM 1,000 MG in SODIUM CHLORIDE 0.9% 100 ML IV SCH (15:00)
[2016-12-22] MEDS: FLUTICASONE/SALMETEROL 250-50 DISKUS 14 DOSE INH SCH ×2 (15:06→20:28)
--- NOTE | 2016-12-22 16:10 | Event Note ---
General Surgery Progress Note Chief complaint This patient is a 61-year-old woman admitted with diverticulitis that failed medical management treated with robotic assisted laparoscopic converted to open sigmoid colectomy with end colostomy (Remy's procedure) on 12/22/2016 Interval history The patient is resting comfortably. She has clear blue urine output secondary to methylene blue administration in the OR. She feels thirsty. No nausea or vomiting. Pain is well controlled. Physical exam Afebrile, low-grade tachycardia but normal blood pressure Chest is clear Heart is regular but tachycardic Abdomen is appropriately tender and nondistended. Ostomy is pink and nonproductive. Hypoactive bowel sounds. Extremities no edema Labs Reviewed, white blood cell count 18,000 Hemoglobin stable Electrolytes acceptable Imaging None new Assessment and plan Start clear liquids Continue current pain medications Start DVT chemoprophylaxis tomorrow Continue SCDs Continue incentive spirometry Repeat labs in a.m.
[2016-12-23] MEDS ORDERED: ENOXAPARIN 40 MG/0.4 ML SYRINGE SUBCUT SCH (04:31)
[2016-12-23] MEDS: LACTATED RINGERS 1,000 ML IV SCH ×2 (04:49→05:01)
[2016-12-23] MEDS: KETOROLAC 15 MG/1 ML VIAL IV SCH ×4 (04:54→23:29)
[2016-12-23] MEDS ORDERED: DEXTROSE 50% 25 GM/50 ML VIAL IV PRN (06:35)
[2016-12-23] MEDS ORDERED: GLUCAGON 1 MG VIAL IM PRN (06:35)
[2016-12-23 06:55] LABS: Basophils % 0.1 % (0.0-0.8); Hematocrit 21.7 VOL% (35.7-47.0); Immature Granulocytes % 1.1 %; Immature Granulocytes Absolute 0.17 #; Lymphocytes # 1.1 10*3/uL (1.4-4.0); Lymphocytes % 6.9 % (21.3-54.2); Mean Corpuscular HGB Conc 34.6 GM/DL (32-36); Mean Corpuscular Hemoglobin 28 PG (27-34); Mean Corpuscular Volume 81.3 FL (87-102); Mean Platelet Volume 9.6 FL (9.6-12.0); Monocytes # 1.8 10*3/uL (0.11-0.8); Monocytes % 11.5 % (1.7-12.7); Neutrophils # 12.3 10*3/uL (1.4-7.4); Neutrophils % 80.4 % (38.7-73.9); Red Cell Distribution Width 12.9 % (9.3-17.3); White Blood Count 15.3 T/CUMM (4-12)
[2016-12-23 07:07] LABS: Hemoglobin 7.5 GM/DL (12.0-16.0); Red Blood Count 2.67 MC/CUMM (3.8-5.5)
[2016-12-23 07:08] LABS: Platelet Count 350 T/CUMM (130-400)
[2016-12-23 07:18] LABS: Band Neutrophils 2 % (0-10); Hypochromasia 1+; Lymphocytes 2 % (20-55); Microcytosis 1+; Segmented Neutrophils 85 % (50-85); Total Cells Counted 100
[2016-12-23 07:19] LABS: Calcium 7.4 MG/DL (8.5-10.1); Osmolality,Calculated 273.7 MOS/KG (273-304); Potassium 3.9 MMOL/L (3.5-5.1)
[2016-12-23] MEDS: INSULIN REGULAR 100 UNIT/ML SUBCUT SCH ×4 (09:04→21:25)
[2016-12-23] MEDS: SUCRALFATE 1 GM TABLET PO SCH ×4 (09:05→21:24)
[2016-12-23] MEDS: POLYETHYLENE GLYCOL POWDER 17 GM PACK PO SCH (09:05)
[2016-12-23] MEDS: FLUTICASONE/SALMETEROL 250-50 DISKUS 14 DOSE INH SCH ×2 (09:06→21:23)
[2016-12-23] MEDS: DEXT 5% NACL 0.45% KCL 40 MEQ 40 MEQ/1,000 ML BAG IV SCH ×3 (10:01→23:30)
--- NOTE | 2016-12-23 11:23 | Pathology Report from [facility] ---
[facility] [id number] PATIENT NAME : Marcy Palacios ORDERING DR : Freddy Mesa MD CLINICAL HX: Sigmoid diverticulitis POST-OP DX: Same SPECIMEN INFO: Sigmoid colon GROSS DESCRIPTION: Received in formalin labeled MARCY PALACIOS is a colon segment measuring 17.5 x 2.3 cm. The serosa and mesentery are shaggy and markedly hemorrhagic. The bowel wall is thickened with scattered non bleeding diverticula seen, one of which leads to an area of perforation measuring 0.5 cm. No mucosal lesions are appreciated. Sections submitted A&B-Surgical margins , C-Perforated diverticulum. DIAGNOSIS FOR MARCY PALACIOS: SIGMOID COLECTOMY: Acute diverticulitis with perforation and acute peritonitis. Viable tissue present in proximal and distal specimen margins. COLLECTED DATE: 12/22/2016 [facility] [place] DATE: 12/23/2016 ELECTRONICALLY SIGNED BY: Devang Amin M.D. 12/23/2016 - 9:53:54 MTDD
[2016-12-23 11:50] LABS: Basophils % 0.1 % (0.0-0.8); Hematocrit 21.7 VOL% (35.7-47.0); Hemoglobin 7.5 GM/DL (12.0-16.0); Immature Granulocytes % 1.4 %; Immature Granulocytes Absolute 0.22 #; Lymphocytes # 1.1 10*3/uL (1.4-4.0); Lymphocytes % 7.1 % (21.3-54.2); Mean Corpuscular HGB Conc 34.6 GM/DL (32-36); Mean Corpuscular Hemoglobin 28 PG (27-34); Mean Corpuscular Volume 80.4 FL (87-102); Mean Platelet Volume 8.8 FL (9.6-12.0); Monocytes # 1.3 10*3/uL (0.11-0.8); Monocytes % 8.7 % (1.7-12.7); Neutrophils # 12.6 10*3/uL (1.4-7.4); Neutrophils % 82.7 % (38.7-73.9); Platelet Count 348 T/CUMM (130-400); White Blood Count 15.3 T/CUMM (4-12)
[2016-12-23] MEDS: HYDROmorphone PCA 30 MG/30 ML SYRINGE IV SCH (12:06)
[2016-12-23 12:11] LABS: Band Neutrophils 1 % (0-10); Lymphocytes 7 % (20-55); Segmented Neutrophils 88 % (50-85); Total Cells Counted 100
[2016-12-23 12:12] LABS: Hypochromasia 1+; Microcytosis 1+
[2016-12-23] MEDS: ERTAPENEM 1,000 MG in SODIUM CHLORIDE 0.9% 100 ML IV SCH (13:22)
[2016-12-24] MEDS: DEXT 5% NACL 0.45% KCL 40 MEQ 40 MEQ/1,000 ML BAG IV SCH ×2 (02:05→09:39)
[2016-12-24] MEDS: KETOROLAC 15 MG/1 ML VIAL IV SCH ×3 (05:20→18:44)
[2016-12-24 05:56] LABS: Basophils % 0.1 % (0.0-0.8); Eosinophils # 0.1 10*3/uL (0.0-0.87); Eosinophils % 0.4 % (0.00-10.9); Hematocrit 22.9 VOL% (35.7-47.0); Hemoglobin 7.7 GM/DL (12.0-16.0); Immature Granulocytes % 1.8 %; Immature Granulocytes Absolute 0.24 #; Lymphocytes # 1.9 10*3/uL (1.4-4.0); Lymphocytes % 14.7 % (21.3-54.2); Mean Corpuscular HGB Conc 33.6 GM/DL (32-36); Mean Corpuscular Hemoglobin 28 PG (27-34); Mean Corpuscular Volume 82.4 FL (87-102); Monocytes # 1.6 10*3/uL (0.11-0.8); Monocytes % 12.1 % (1.7-12.7); Neutrophils # 9.4 10*3/uL (1.4-7.4); Neutrophils % 70.9 % (38.7-73.9); Platelet Count 438 T/CUMM (130-400); Red Blood Count 2.78 MC/CUMM (3.8-5.5); Red Cell Distribution Width 13.1 % (9.3-17.3); White Blood Count 13.2 T/CUMM (4-12)
[2016-12-24 06:12] LABS: Calcium 7.8 MG/DL (8.5-10.1); Osmolality,Calculated 280.1 MOS/KG (273-304); Potassium 4.1 MMOL/L (3.5-5.1)
[2016-12-24 06:19] LABS: Hypochromasia 1+; Microcytosis 1+; Ovalocytes Slight; Platelet Estimate Adequate
--- NOTE | 2016-12-24 07:58 | Event Note ---
General Surgery Progress Note Chief complaint This patient is a 61-year-old woman admitted with diverticulitis that failed medical management treated with robotic assisted laparoscopic converted to open sigmoid colectomy with end colostomy (Remy's procedure) on 12/22/2016 Interval history No events overnight. Patient has output from her ostomy. Ambulating in room but not in hallway. No nausea or vomiting. Hemoglobin stabilized. Labs are acceptable this morning. White blood cell count is downtrending. IDALIA drain has 30 cc of serosanguineous output. Physical exam Afebrile, tachycardia has resolved, low-grade hypotension intermittently with Dilaudid use Chest is clear Heart is regular Abdomen is appropriately tender and nondistended. Ostomy is pink and productive of stool and air. Normal bowel sounds. Extremities no edema Labs Reviewed, white blood cell count 13,000 Hemoglobin stable Electrolytes acceptable Imaging None new Assessment and plan Regular diet, n.p.o. after midnight Continue current pain regimen Ambulate in hallway Delayed primary closure of midline wound and OR tomorrow
[2016-12-24] MEDS: SUCRALFATE 1 GM TABLET PO SCH ×4 (08:26→21:21)
[2016-12-24] MEDS: INSULIN REGULAR 100 UNIT/ML SUBCUT SCH ×4 (08:26→20:14)
[2016-12-24] MEDS: POLYETHYLENE GLYCOL POWDER 17 GM PACK PO SCH (09:17)
[2016-12-24] MEDS: FLUTICASONE/SALMETEROL 250-50 DISKUS 14 DOSE INH SCH ×2 (09:18→20:46)
[2016-12-24] MEDS: HYDROmorphone 2 MG/1 ML VIAL IV PRN ×2 (11:52→16:55)
[2016-12-24] MEDS: ERTAPENEM 1,000 MG in SODIUM CHLORIDE 0.9% 100 ML IV SCH (13:36)
[2016-12-25] MEDS: KETOROLAC 15 MG/1 ML VIAL IV SCH ×2 (00:14→06:01)
[2016-12-25] MEDS: HYDROmorphone 2 MG/1 ML VIAL IV PRN ×3 (03:48→20:58)
[2016-12-25 05:06] LABS: Basophils % 0.2 % (0.0-0.8); Eosinophils # 0.1 10*3/uL (0.0-0.87); Eosinophils % 1.1 % (0.00-10.9); Hematocrit 21.5 VOL% (35.7-47.0); Immature Granulocytes % 2.7 %; Immature Granulocytes Absolute 0.26 #; Lymphocytes # 1.6 10*3/uL (1.4-4.0); Lymphocytes % 16.7 % (21.3-54.2); Mean Corpuscular HGB Conc 32.6 GM/DL (32-36); Mean Corpuscular Hemoglobin 27 PG (27-34); Mean Corpuscular Volume 82.7 FL (87-102); Mean Platelet Volume 8.6 FL (9.6-12.0); Monocytes # 1.3 10*3/uL (0.11-0.8); NRBC # 0.02 10*3/uL; Neutrophils # 6.2 10*3/uL (1.4-7.4); Neutrophils % 65.3 % (38.7-73.9); Platelet Count 418 T/CUMM (130-400); Red Cell Distribution Width 13.3 % (9.3-17.3); White Blood Count 9.5 T/CUMM (4-12)
[2016-12-25 05:35] LABS: Calcium 8.2 MG/DL (8.5-10.1)
[2016-12-25] MEDS ORDERED: DEXTROSE 50% 25 GM/50 ML SYRINGE IV PRN (08:00)
[2016-12-25] MEDS ORDERED: LIDOCAINE 1%/EPI INJ 20 ML VIAL ONE (08:13)
[2016-12-25] MEDS ORDERED: BUPIVACAINE 0.25% /EPI 10 ML VIAL ONE (08:13)
--- NOTE | 2016-12-25 08:44 | Event Note ---
General Surgery Progress Note Chief complaint This patient is a 61-year-old woman admitted with diverticulitis that failed medical management treated with robotic assisted laparoscopic converted to open sigmoid colectomy with end colostomy (Remy's procedure) on 12/22/2016 Interval history No events overnight. Hemoglobin is back down to 7 today. Patient has no complaints. She is getting up and walking around without orthostatic symptoms. She is tolerating a regular diet but has been n.p.o. since midnight for the procedure today. Physical exam Afebrile, tachycardia has resolved, low-grade hypotension intermittently with Dilaudid use Chest is clear Heart is regular Abdomen is appropriately tender and nondistended. Ostomy is pink and productive of stool and air. Normal bowel sounds. Extremities no edema Labs Reviewed, white blood cell count has normalized Hemoglobin stable at 7 g/dL Electrolytes acceptable Imaging None new Assessment and plan Delayed primary closure of midline wound today. Continue IDALIA drain until discharge. Discontinue antibiotics.
--- NOTE | 2016-12-25 09:16 | Anesthesia Post-Op ---
Anesthesia Post OP - Post Ansesthetic Evaluation Patient seen in post op: Yes Resp: within normal limits CV: within normal limits Mental: within normal limits Temp: within normal limits Brar-Xl-Mlxsattxa: within normal limits Nausea and Vomiting: within normal limits Pain: within normal limits
[2016-12-25] MEDS ORDERED: fentaNYL 100 MCG/2 ML VIAL ONE (09:19)
[2016-12-25] MEDS ORDERED: PROPOFOL 200 MG/20 ML VIAL IV ONE (09:19)
[2016-12-25] MEDS: INSULIN REGULAR 100 UNIT/ML SUBCUT SCH ×3 (11:43→20:39)
[2016-12-25] MEDS: POLYETHYLENE GLYCOL POWDER 17 GM PACK PO SCH (11:43)
[2016-12-25] MEDS: SUCRALFATE 1 GM TABLET PO SCH ×3 (11:43→20:51)
[2016-12-25] MEDS: FLUTICASONE/SALMETEROL 250-50 DISKUS 14 DOSE INH SCH ×2 (11:44→20:53)
--- NOTE | 2016-12-25 12:13 | Operative Note ---
Date of procedure: 12/25/16 Pre-op diagnosis: Open wound abdominal wall skin Post-op diagnosis: same Procedure: Preoperative diagnosis Open wound of abdomen skin Postoperative diagnosis same Procedures performed Delayed primary closure of abdominal wound Findings The wound appeared healthy and viable tissue is present. The fascia was intact and there was no infection or necrotic tissue. The wound was closed with a 2-0 Monocryl running suture in the deep dermal plane and skin clips on the scan. Complications None apparent Specimen None Anesthesia Monitored with local Blood loss None Indications Prior sigmoid colectomy for purulent peritonitis related to perforated sigmoid diverticular disease with delayed wound closure recommendation. The risks, benefits, and alternatives of the operation were discussed with the patient, and the expected outcomes were reviewed. Description of procedure The patient was taken to the operating room and transferred to the operating table in supine position. Pressure points were padded and SCDs placed lower extremities. Monitored anesthesia was administered. The abdomen was prepped by prepping the ostomy to the side with a draped and draped in the IDALIA drain out of the field. The midline wound was taken down and prepped with Betadine and draped sterilely. Timeout was called. The wound was irrigated copiously for local anesthetic was administered in the deep dermal space was closed with a running 2-0 Monocryl suture. Skin clips were then placed to close the skin and a sterile dressing was applied. The patient was awakened from anesthesia and transferred to recovery. Postoperative plan Continue prior treatment plan Anesthesia: MAC, local Surgeon / Physician: Freddy Mesa Estimated blood loss: none Specimens: none sent Condition: stable Disposition: PACU Results - Labs CBC & BMP: 12/25/16 04:50 12/25/16 04:50 Discharge Plan - Discharge Medications No Action Ergocalciferol (Vitamin D2) [Vitamin D2] 50,000 unit PO ALLEN Omeprazole Magnesium [Prilosec Otc] 20 mg PO QAM Multivitamin [Multivitamins] 1 tablet PO QAM Fluticasone/Salmeterol 250-50 [Advair 250-50] 1 puff INH BID Albuterol Inhaler [Proventil Inhaler] 2 puff INH Q6H PRN PRN Reason: Shortness Of Breath/Wheezing hydrOXYzine HCl [Hydroxyzine HCl] 25 mg PO TID PRN PRN Reason: Itching Promethazine Tab [Phenergan Tab] 25 mg PO Q4H PRN PRN Reason: Nausea/Vomiting Metoclopramide Tab [Reglan Tab] 5 mg PO ACHS #40 tablet Sucralfate Tab [Carafate Tab] 1 gm PO ACHS #40 tablet HYDROcodone/ACETAMIN 7.5-325 [[place] 7.5-325] 1 tablet PO Q4H PRN #30 tablet PRN Reason: Pain Moderate (4-7) Ondansetron Tab [Zofran Tab] 4 mg PO Q6H PRN PRN Reason: Nausea Polyethylene Glycol Powder [Miralax] 17 gm PO DAILY Tizanidine HCl 8 mg PO TID PRN PRN Reason: MUSCLE SPASMS Levofloxacin Tab [Levaquin Tab] 500 mg PO DAILY #14 tablet metroNIDAZOLE TAB [Flagyl Cap/Tab] 500 mg PO TID #42 tablet - Follow Up or Referral - Forms/Instructions
[2016-12-25] MEDS: LINEZOLID INJ 600 MG in PREMIX 1 EACH IV SCH (23:35)
[2016-12-26 02:42] LABS: Basophils % 0.1 % (0.0-0.8); Eosinophils # 0.1 10*3/uL (0.0-0.87); Eosinophils % 0.6 % (0.00-10.9); Hematocrit 22.1 VOL% (35.7-47.0); Hemoglobin 7.4 GM/DL (12.0-16.0); Immature Granulocytes % 2.2 %; Immature Granulocytes Absolute 0.25 #; Lymphocytes # 1.4 10*3/uL (1.4-4.0); Lymphocytes % 12.2 % (21.3-54.2); Mean Corpuscular HGB Conc 33.5 GM/DL (32-36); Mean Corpuscular Hemoglobin 28 PG (27-34); Mean Corpuscular Volume 83.4 FL (87-102); Mean Platelet Volume 9.4 FL (9.6-12.0); Monocytes # 1.5 10*3/uL (0.11-0.8); Monocytes % 13.3 % (1.7-12.7); NRBC # 0.02 10*3/uL; Neutrophils % 71.6 % (38.7-73.9); Platelet Count 454 T/CUMM (130-400); Red Blood Count 2.65 MC/CUMM (3.8-5.5); Red Cell Distribution Width 13.6 % (9.3-17.3); White Blood Count 11.1 T/CUMM (4-12)
[2016-12-26 03:34] LABS: Eosinophils 2 % (0-10); Lymphocytes 15 % (20-55); Segmented Neutrophils 77 % (50-85)
[2016-12-26 03:36] LABS: Atypical Lymphocytes 1+; Hypochromasia 2+; Microcytosis 1+; Platelet Estimate Increased
[2016-12-26 03:37] LABS: Anisocytosis 1+; Total Cells Counted 100
[2016-12-26] MEDS: HYDROmorphone 2 MG/1 ML VIAL IV PRN ×3 (05:18→19:54)
[2016-12-26] MEDS: POLYETHYLENE GLYCOL POWDER 17 GM PACK PO SCH (09:47)
[2016-12-26] MEDS: SUCRALFATE 1 GM TABLET PO SCH ×4 (09:49→21:55)
[2016-12-26] MEDS: INSULIN REGULAR 100 UNIT/ML SUBCUT SCH ×4 (09:51→21:59)
[2016-12-26] MEDS: LINEZOLID INJ 600 MG in PREMIX 1 EACH IV SCH ×2 (10:29→21:59)
[2016-12-26] MEDS: FLUTICASONE/SALMETEROL 250-50 DISKUS 14 DOSE INH SCH ×2 (10:39→21:58)
--- NOTE | 2016-12-26 10:40 | Event Note ---
She is doing well. She has minimal abdominal pain. She is afebrile with stable vital signs. She is tolerating a regular diet. We are continuing antibiotics for her intra-abdominal infection.
[2016-12-26] MEDS: ONDANSETRON 4 MG/2 ML VIAL IV PRN (19:54)
[2016-12-27] MEDS: HYDROmorphone 2 MG/1 ML VIAL IV PRN ×3 (06:06→23:10)
[2016-12-27] MEDS: SUCRALFATE 1 GM TABLET PO SCH ×4 (09:45→20:41)
[2016-12-27] MEDS: PANTOPRAZOLE 20 MG TABLET PO SCH (09:46)
[2016-12-27] MEDS: FLUTICASONE/SALMETEROL 250-50 DISKUS 14 DOSE INH SCH ×2 (09:52→20:42)
[2016-12-27] MEDS: POLYETHYLENE GLYCOL POWDER 17 GM PACK PO SCH (09:52)
[2016-12-27] MEDS: INSULIN REGULAR 100 UNIT/ML SUBCUT SCH ×4 (09:52→22:23)
[2016-12-27] MEDS: LINEZOLID INJ 600 MG in PREMIX 1 EACH IV SCH ×2 (11:30→22:25)
--- NOTE | 2016-12-27 12:18 | Event Note ---
She feels well. She has no new complaints. She is tolerating a diet. Her abdomen is benign. She is afebrile with stable vital signs. Continue antibiotics.
[2016-12-27] MEDS: ERGOCALCIFEROL 50,000 UNIT CAPSULE PO SCH (16:48)
[2016-12-28] MEDS: HYDROmorphone 2 MG/1 ML VIAL IV PRN ×2 (05:11→22:30)
--- NOTE | 2016-12-28 05:13 | Event Note ---
General Surgery Progress Note Chief complaint This patient is a 61-year-old woman admitted with diverticulitis that failed medical management treated with robotic assisted laparoscopic converted to open sigmoid colectomy with end colostomy (Remy's procedure) on 12/22/2016 and delayed primary closure of abdominal wound on 12/25/2016 Interval history No events over the weekend. Patient is tolerating regular diet. Ostomy output is normal. No fevers. Pain is improving but still requires intermittent IV pain medication. Physical exam Afebrile, normal vital signs Chest is clear Heart is regular Abdomen is appropriately tender and nondistended. Ostomy is pink and productive of stool and air. Normal bowel sounds. The midline incision has some reactive erythema around the heather but no drainage or warmth. There is no foul odor Extremities no edema Labs None new this morning Imaging None new Assessment and plan Remove IDALIA drain today Continue Zyvox Monitor abdominal wound Discharge planning the next 1-2 days with home health
[2016-12-28] MEDS: ONDANSETRON 4 MG/2 ML VIAL IV PRN ×2 (09:14→20:12)
[2016-12-28] MEDS: INSULIN REGULAR 100 UNIT/ML SUBCUT SCH ×4 (09:19→20:08)
[2016-12-28] MEDS: SUCRALFATE 1 GM TABLET PO SCH ×4 (09:19→20:12)
[2016-12-28] MEDS: FLUTICASONE/SALMETEROL 250-50 DISKUS 14 DOSE INH SCH ×2 (09:20→20:12)
[2016-12-28] MEDS: PANTOPRAZOLE 20 MG TABLET PO SCH (09:20)
[2016-12-28] MEDS: tiZANidine 4 MG TABLET PO PRN (09:21)
[2016-12-28] MEDS: POLYETHYLENE GLYCOL POWDER 17 GM PACK PO SCH (09:22)
[2016-12-28] MEDS: LINEZOLID INJ 600 MG in PREMIX 1 EACH IV SCH ×2 (09:28→22:20)
[2016-12-28] MEDS: hydrOXYzine HCL 25 MG TABLET PO PRN (20:12)
--- NOTE | 2016-12-29 07:24 | Event Note ---
General Surgery Progress Note Chief complaint This patient is a 61-year-old woman admitted with diverticulitis that failed medical management treated with robotic assisted laparoscopic converted to open sigmoid colectomy with end colostomy (Remy's procedure) on 12/22/2016 and delayed primary closure of abdominal wound on 12/25/2016 Interval history No events overnight. Patient is still having pain when she gets up and moves around some. No fevers. Tolerating p.o. with no nausea or vomiting. Ostomy output is adequate. Urine output is good. IDALIA drain was removed yesterday. Physical exam Afebrile, normal vital signs Chest is clear Heart is regular Abdomen is nondistended and appropriately tender. Ostomy is pink, patent, and productive of air and stool. IDALIA drain site is clean. Midline incision has some erythema at the inferior portion but there is no drainage or increased tenderness here. There is no warmth. Labs None new this morning Imaging None new Assessment and plan Continue Zyvox Monitor abdominal wound Discharge planning with wound care teaching for ostomy home education today repeat labs tomorrow AM
[2016-12-29] MEDS: POLYETHYLENE GLYCOL POWDER 17 GM PACK PO SCH (08:30)
[2016-12-29] MEDS: SUCRALFATE 1 GM TABLET PO SCH ×4 (08:31→20:38)
[2016-12-29] MEDS: INSULIN REGULAR 100 UNIT/ML SUBCUT SCH ×4 (08:31→20:36)
[2016-12-29] MEDS: PANTOPRAZOLE 20 MG TABLET PO SCH (08:32)
[2016-12-29] MEDS: FLUTICASONE/SALMETEROL 250-50 DISKUS 14 DOSE INH SCH ×2 (08:32→20:39)
[2016-12-29] MEDS: SODIUM HYPOCHLORITE 0.25% IRRIG 473 ML BOTTLE TOP SCH (10:25)
[2016-12-29] MEDS: CHLORHEXIDINE 4% SOLN 118 ML BOTTLE TOP SCH (10:25)
[2016-12-29] MEDS ORDERED: HYDROmorphone 2 MG/1 ML VIAL IM ONE (10:33)
[2016-12-29] MEDS: LINEZOLID INJ 600 MG in PREMIX 1 EACH IV SCH ×2 (10:39→21:51)
[2016-12-29] MEDS: HYDROmorphone 2 MG/1 ML VIAL IV PRN ×2 (16:55→20:38)
[2016-12-29] MEDS: ONDANSETRON 4 MG/2 ML VIAL IV PRN ×2 (16:56→20:38)
[2016-12-30] MEDS: HYDROmorphone 2 MG/1 ML VIAL IV PRN ×2 (00:49→13:42)
[2016-12-30] MEDS: ONDANSETRON 4 MG/2 ML VIAL IV PRN (00:50)
[2016-12-30 05:31] LABS: Basophils % 0.2 % (0.0-0.8); Eosinophils # 0.1 10*3/uL (0.0-0.87); Eosinophils % 1.7 % (0.00-10.9); Hematocrit 22.3 VOL% (35.7-47.0); Hemoglobin 7.2 GM/DL (12.0-16.0); Immature Granulocytes % 1.1 %; Immature Granulocytes Absolute 0.05 #; Lymphocytes # 1.1 10*3/uL (1.4-4.0); Lymphocytes % 22.7 % (21.3-54.2); Mean Corpuscular HGB Conc 32.3 GM/DL (32-36); Mean Corpuscular Hemoglobin 28 PG (27-34); Mean Corpuscular Volume 85.1 FL (87-102); Mean Platelet Volume 8.5 FL (9.6-12.0); Monocytes # 0.6 10*3/uL (0.11-0.8); Monocytes % 12.6 % (1.7-12.7); Neutrophils # 2.9 10*3/uL (1.4-7.4); Neutrophils % 61.7 % (38.7-73.9); Platelet Count 358 T/CUMM (130-400); Red Blood Count 2.62 MC/CUMM (3.8-5.5); Red Cell Distribution Width 14.1 % (9.3-17.3); White Blood Count 4.8 T/CUMM (4-12)
[2016-12-30 06:06] LABS: Magnesium 2.1 MG/DL (1.8-2.4); Osmolality,Calculated 279.4 MOS/KG (273-304); Potassium 4.2 MMOL/L (3.5-5.1)
--- NOTE | 2016-12-30 08:54 | Event Note ---
General Surgery Progress Note Chief complaint This patient is a 61-year-old woman admitted with diverticulitis that failed medical management treated with robotic assisted laparoscopic converted to open sigmoid colectomy with end colostomy (Remy's procedure) on 12/22/2016 and delayed primary closure of abdominal wound on 12/25/2016 Interval history No events overnight. Patient had her wound opened up some yesterday and some purulent fluid was drained. Cultures were taken and so far no growth or Gram stain shows infection. Patient feels much better today. Labs are unremarkable today. Physical exam Afebrile, normal vital signs Chest is clear Heart is regular Abdomen is nondistended and appropriately tender. Ostomy is pink, patent, and productive of air and stool. IDALIA drain site is clean. There is an open area in the midline incision inferiorly that has some drainage with foul odor. There is a large amount of fluid draining remove the packing. There is some additional erythema focally at the superior portion of the midline incision. Labs Reviewed, stable Imaging None new Assessment and plan Changed to daptomycin based on MARIELLE from cultures done in the operating room Social work consult for swing bed or LTAC placement for wound care and antibiotics Continue DVT chemoprophylaxis
[2016-12-30] MEDS: INSULIN REGULAR 100 UNIT/ML SUBCUT SCH ×4 (09:51→21:07)
[2016-12-30] MEDS: SUCRALFATE 1 GM TABLET PO SCH ×4 (09:52→21:01)
[2016-12-30] MEDS: POLYETHYLENE GLYCOL POWDER 17 GM PACK PO SCH (09:52)
[2016-12-30] MEDS: PANTOPRAZOLE 20 MG TABLET PO SCH (09:53)
[2016-12-30] MEDS: FLUTICASONE/SALMETEROL 250-50 DISKUS 14 DOSE INH SCH ×2 (09:56→21:07)
[2016-12-30] MEDS: SODIUM HYPOCHLORITE 0.25% IRRIG 473 ML BOTTLE TOP SCH (13:40)
[2016-12-30] MEDS: CHLORHEXIDINE 4% SOLN 118 ML BOTTLE TOP SCH (13:40)
[2016-12-30] MEDS: hydrOXYzine HCL 25 MG TABLET PO PRN (21:01)
[2016-12-31] MEDS: HYDROmorphone 2 MG/1 ML VIAL IV PRN ×2 (01:05→07:59)
[2016-12-31] MEDS: SUCRALFATE 1 GM TABLET PO SCH ×4 (08:04→20:29)
[2016-12-31] MEDS: INSULIN REGULAR 100 UNIT/ML SUBCUT SCH ×4 (08:04→20:32)
[2016-12-31] MEDS: POLYETHYLENE GLYCOL POWDER 17 GM PACK PO SCH (08:37)
[2016-12-31] MEDS: PANTOPRAZOLE 20 MG TABLET PO SCH (08:37)
[2016-12-31] MEDS: FLUTICASONE/SALMETEROL 250-50 DISKUS 14 DOSE INH SCH ×2 (08:40→20:29)
--- NOTE | 2016-12-31 10:32 | Event Note ---
Patient's H&H has been stable since 12/23/2016 at 12/19. Patient's vital signs are stable and she is asymptomatic. There are no indications at this time for transfusion. Patient will require Daptomycin 500 mg IV every 24 hours for 2 weeks for abdominal wound infection. Discussed with Dr. Mesa.
[2016-12-31] MEDS: SODIUM HYPOCHLORITE 0.25% IRRIG 473 ML BOTTLE TOP SCH (12:04)
[2016-12-31] MEDS: CHLORHEXIDINE 4% SOLN 118 ML BOTTLE TOP SCH (12:04)
--- NOTE | 2016-12-31 14:22 | Event Note ---
General Surgery Progress Note Chief complaint This patient is a 61-year-old woman admitted with diverticulitis that failed medical management treated with robotic assisted laparoscopic converted to open sigmoid colectomy with end colostomy (Remy's procedure) on 12/22/2016 and delayed primary closure of abdominal wound on 12/25/2016 Interval history No events overnight. Patient feels better overall. Pain is well controlled. She is tolerating her diet and having ostomy output. No fevers. Cultures from wound have grown gram-positive cocci but have not returned yet. Physical exam Afebrile, normal vital signs Chest is clear Heart is regular Abdomen wound is improving with less erythema. Minimal additional drainage. Fascial integrity is intact Labs Reviewed, stable Imaging None new Assessment and plan Continue daptomycin Continue wound care Discharge planning
[2016-12-31] MEDS: hydrOXYzine HCL 25 MG TABLET PO PRN (20:29)
[2017-01-01] MEDS: HYDROmorphone 2 MG/1 ML VIAL IV PRN ×2 (04:02→10:57)
--- NOTE | 2017-01-01 09:43 | Discharge Summary ---
Hospital Course - Hospital Course Hospital Course: 61-year-old -[place] female with history of COPD and recurrent diverticulitis admitted by Dr. Mesa on 12/15/2016 as a direct admission from his office with worsening diverticular abscess. She was started on IV antibiotics, pain, and nausea control. CT of the abdomen pelvis done on 12/21 showed worsening changes of diverticulitis with multiple abscesses. She was taken to the OR on 12/22/2016 for robotic assisted laparoscopic drainage of abdominal abscess with cultures, attempted robotic assisted laparoscopic sigmoid colectomy with conversion to open procedure, exploratory laparotomy with sigmoid colectomy and end colostomy, and exploration of the left ureter by Dr. Man Serra. Patient had hematuria in the catheter passed during surgery. He suspected this was from inflammation of the bladder due to her diverticular abscesses. No problems with the ureters were found. Patient did well postoperatively and she was taken back to the OR on 12/25/2016 for delayed primary closure of her abdominal wound. Patient developed an abdominal wound infection and she was restarted on antibiotics. Her incisions were opened in 2 places and they are being irrigated and packed. She has no cellulitis and no induration and the drainage is clear. Patient is ambulating with a walker in the hallway, she is tolerating a diet, and she has good ostomy output. She will be discharged home with home health for wound and ostomy care. Irene the wound care nurse has also worked with her on ostomy care and wound care during her hospital stay. She will be discharged on p.o. Zyvox and pain medications. Complete discharge instructions were given to the patient. Care coordination, chart review, and completed discharge paperwork took approximately 43 minutes. - Time spent with patient Time with patient DS: Greater than 30 minutes Diagnosis - Discharge Diagnosis (1) Nausea and vomiting Status: Resolved (2) Abdominal pain Status: Resolved (3) History of diverticulitis of colon Status: Resolved (4) COPD (chronic obstructive pulmonary disease) Status: Chronic (5) Sigmoid diverticulitis Status: Resolved Specialty Discharge - Follow Up or Referrals Discharge Plan - Discharge Data Disposition: Home Health Service Condition at Discharge: Stable Discharge Diet: advance to your usual diet Activity: as per physical therapy Hygiene: may shower Driving: other (No driving if taking pain medications) Contact your physician if you experience:: fever over 101, Redness or swelling Wound / Dressing Care Instructions: Shower daily with Hibiclens. Irrigate with Hibiclens and water. Rinse with Dakin's. Pack open wound with quarter inch iodoform and lower wound with corner of a 4 x 4, cover with dry 4 x 4's and ABD pad with paper tape - Discharge Medications New Hydrocodone/Acetaminophen [[place] 10-325 Tablet] 1 each PO Q4H #40 tablet Linezolid Tab [Zyvox Tab] 600 mg PO BID #20 tablet Sodium Hypochlorite 0.25% Irr [Dakins 1/2 Strength 0.25% Soln] 1 applic TOP DAILY applic Chlorhexidine 4% Soln [Hibiclens] 1 applic TOP DAILY applic Continue Ergocalciferol (Vitamin D2) [Vitamin D2] 50,000 unit PO ALLEN Omeprazole Magnesium [Prilosec Otc] 20 mg PO QAM Multivitamin [Multivitamins] 1 tablet PO QAM Fluticasone/Salmeterol 250-50 [Advair 250-50] 1 puff INH BID Albuterol Inhaler [Proventil Inhaler] 2 puff INH Q6H PRN PRN Reason: Shortness Of Breath/Wheezing hydrOXYzine HCl [Hydroxyzine HCl] 25 mg PO TID PRN PRN Reason: Itching Promethazine Tab [Phenergan Tab] 25 mg PO Q4H PRN PRN Reason: Nausea/Vomiting Metoclopramide Tab [Reglan Tab] 5 mg PO ACHS #40 tablet Sucralfate Tab [Carafate Tab] 1 gm PO ACHS #40 tablet Ondansetron Tab [Zofran Tab] 4 mg PO Q6H PRN PRN Reason: Nausea Polyethylene Glycol Powder [Miralax] 17 gm PO DAILY Tizanidine HCl 8 mg PO TID PRN PRN Reason: MUSCLE SPASMS Discontinued HYDROcodone/ACETAMIN 7.5-325 [[place] 7.5-325] 1 tablet PO Q4H PRN #30 tablet PRN Reason: Pain Moderate (4-7) Levofloxacin Tab [Levaquin Tab] 500 mg PO DAILY #14 tablet metroNIDAZOLE TAB [Flagyl Cap/Tab] 500 mg PO TID #42 tablet - Follow Up or Referral Follow Up: Freddy Mesa MD [Physician] - 01/07/17 - Forms/Instructions Instructions: Peripherally Inserted Central Catheters and Midline Catheters (DC ) Exam - Constitutional Vitals: Period Temp Pulse Resp BP Sys/Page Pulse Ox Last 24 Hr 97.1 F-98.8 F 68-92 18-20 85-122/51-69 95-100 Exam: 61-year-old -[place] female, no acute distress, alert and oriented Chest clear CV regular rate and rhythm Abdomen soft, appropriately tender, incision looks good Extremities no edema Discharge Results Procedures and tests throughout hospitalization: Pending Orders 12/29/16 Abscess Culture Stat Labs on day of discharge: Preliminary micro results at discharge 12/29/16 Unknown Abscess Culture - Preliminary Abdomen - Abscess Gram Positive Cocci Gram Positive Cocci#2 DS: Provider Date of admission: 12/15/16 12:22 Primary care physician: Nash Gamez Attending physician on admission: Freddy Mesa MD Consults: 12/17/16 08:39 Consult to Dietitian [CONS] Routine Reason for Dietitian: Supplements and/or Snacks Consult Comment: 5 ensures per day 12/23/16 07:25 Consult to Anesthesiology [CONS] Routine Consulting Provider: Reason for Anesthesiology: Pre-op Clearance 12/28/16 05:11 Consult to Wound Care - [place] [CONS] Routine Reason for Wound Care: Other Consult Comment: ostomy teaching 12/28/16 09:44 Consult to Case Mgmt/Social Srvs [CONS] Routine Reason for Case Mgmt/Social Srvs: Rehab Home Health Consult Comment: Set HH and Home Rehab at D/C 12/28/16 09:45 Consult to Physical Therapy [CONS] Routine Reason for Physical Therapy: Evaluate and Treat 12/31/16 16:15 Consult to Occupational Therapy [CONS] Routine Reason for Occupational Therapy: Evaluate and Treat Consult Comment: Evaluate and Treat for Swing Bed placement for patient Discharging clinician: ACOSTA Hurt Expected date of discharge: 01/01/17
[2017-01-01] MEDS: FLUTICASONE/SALMETEROL 250-50 DISKUS 14 DOSE INH SCH (09:47)
[2017-01-01] MEDS: PANTOPRAZOLE 20 MG TABLET PO SCH (09:47)
[2017-01-01] MEDS: POLYETHYLENE GLYCOL POWDER 17 GM PACK PO SCH (09:47)
[2017-01-01] MEDS: SUCRALFATE 1 GM TABLET PO SCH ×2 (09:47→11:00)
[2017-01-01] MEDS: INSULIN REGULAR 100 UNIT/ML SUBCUT SCH ×2 (09:49→11:01)
[2017-01-01] MEDS: SODIUM HYPOCHLORITE 0.25% IRRIG 473 ML BOTTLE TOP SCH (09:49)
[2017-01-01] MEDS: CHLORHEXIDINE 4% SOLN 118 ML BOTTLE TOP SCH (09:49)
[2017-01-01 11:25] VITALS: BP 110/60
[2017-01-01] MEDS: ONDANSETRON 4 MG/2 ML VIAL IV PRN (13:20)
== END 2017-01-01 15:00 | disposition home health service (06) | DRG 330 ==
LOC: N.CT 08:28 → N.3E 12:22
PROVIDERS: ADMIT Surgery; ATTEND Surgery

== ENCOUNTER 2017-07-13 06:02 | Inpatient (IN) ==
[2017-07-08 15:45] LABS: Basophils % 0.4 % (0.0-0.8); Eosinophils # 0.1 10*3/uL (0.0-0.87); Eosinophils % 2.9 % (0.00-10.9); Hematocrit 36.2 VOL% (35.7-47.0); Hemoglobin 12.3 GM/DL (12.0-16.0); Immature Granulocytes % 0.2 %; Immature Granulocytes Absolute 0.01 #; Lymphocytes # 1.7 10*3/uL (1.4-4.0); Lymphocytes % 37.8 % (21.3-54.2); Mean Corpuscular Hemoglobin 29 PG (27-34); Mean Corpuscular Volume 85.4 FL (87-102); Mean Platelet Volume 9.4 FL (9.6-12.0); Monocytes # 0.4 10*3/uL (0.11-0.8); Monocytes % 8.9 % (1.7-12.7); Neutrophils # 2.2 10*3/uL (1.4-7.4); Neutrophils % 49.8 % (38.7-73.9); Platelet Count 246 T/CUMM (130-400); Red Blood Count 4.24 MC/CUMM (3.8-5.5); Red Cell Distribution Width 13.1 % (9.3-17.3); White Blood Count 4.5 T/CUMM (4-12)
[2017-07-08 16:29] LABS: Bilirubin,Total 0.4 MG/DL (0.2-1.0); Calcium 9.2 MG/DL (8.5-10.1); Osmolality,Calculated 288.1 MOS/KG (273-304); Total Protein 7.7 G/DL (6.4-8.3)
[~2017-07-13 06:02] MED LIST: ALVIMOPAN 12 MG CAPSULE PO ONE; ERTAPENEM 1,000 MG in SODIUM CHLORIDE 0.9% 100 ML IV ONE
[2017-07-13] MEDS ORDERED: ALVIMOPAN 12 MG CAPSULE ONE (06:09)
[2017-07-13] MEDS: LACTATED RINGERS 1,000 ML IV SCH ×5 (06:33→21:30)
[2017-07-13] MEDS ORDERED: ONDANSETRON 4 MG/2 ML VIAL IV STA (06:47)
[2017-07-13] MEDS ORDERED: FAMOTIDINE 20 MG/2 ML VIAL IV STA (06:47)
[2017-07-13] MEDS ORDERED: FAMOTIDINE 20 MG/2 ML VIAL IV ONE (06:51)
[2017-07-13] MEDS ORDERED: ONDANSETRON 4 MG/2 ML VIAL ONE ×2 (06:51→12:28)
[2017-07-13] MEDS ORDERED: HYDROmorphone 2 MG/1 ML VIAL ONE (12:28)
[2017-07-13] MEDS ORDERED: ONDANSETRON 4 MG/2 ML VIAL IV PRN (12:30)
[2017-07-13] MEDS: HYDROmorphone 2 MG/1 ML VIAL IV PRN ×6 (12:32→21:30)
[2017-07-13] MEDS ORDERED: SEVOFLURANE 1 UNIT/15 MINUTE INH ONE (12:38)
[2017-07-13] MEDS ORDERED: hydrOXYzine HCL 25 MG TABLET PO PRN (12:38)
[2017-07-13] MEDS ORDERED: tiZANidine 4 MG TABLET PO PRN (12:38)
[2017-07-13] MEDS ORDERED: NALBUPHINE 10 MG/ML AMP IM PRN (12:38)
[2017-07-13] MEDS ORDERED: SIMETHICONE 180 MG PO PRN (12:38)
[2017-07-13] MEDS ORDERED: PROPOFOL 200 MG/20 ML VIAL IV ONE (12:38)
[2017-07-13] MEDS ORDERED: LABETALOL 100 MG/20 ML VIAL IV ONE (12:39)
[2017-07-13] MEDS ORDERED: MIDAZOLAM 2 MG/2 ML VIAL ONE ×2 (12:39→12:55)
[2017-07-13] MEDS ORDERED: DEXAMETHASONE 10 MG/1 ML VIAL ONE (12:39)
[2017-07-13] MEDS ORDERED: KETOROLAC 30 MG/1 ML VIAL ONE (12:39)
[2017-07-13] MEDS ORDERED: fentaNYL 100 MCG/2 ML VIAL ONE (12:39)
[2017-07-13] MEDS ORDERED: ROCURONIUM 100 MG/10 ML VIAL IV ONE (12:40)
[2017-07-13] MEDS ORDERED: GLYCOPYRROLATE 0.4 MG/2 ML VIAL ONE (12:40)
[2017-07-13] MEDS ORDERED: NEOSTIGMINE 10 MG/10 ML VIAL ONE (12:40)
[2017-07-13] MEDS ORDERED: VECURONIUM 10 MG VIAL IV ONE (12:40)
[2017-07-13] MEDS ORDERED: ROPIVACAINE 0.5% 30 ML VIAL ONE (12:51)
[2017-07-13] MEDS ORDERED: MIDAZOLAM 2 MG/2 ML VIAL IV ONE (12:55)
[2017-07-13 13:00] LABS: Basophils % 0.2 % (0.0-0.8); Eosinophils % 0.2 % (0.00-10.9); Hematocrit 38.9 VOL% (35.7-47.0); Hemoglobin 12.7 GM/DL (12.0-16.0); Immature Granulocytes % 0.5 %; Immature Granulocytes Absolute 0.06 #; Lymphocytes # 1.1 10*3/uL (1.4-4.0); Lymphocytes % 8.6 % (21.3-54.2); Mean Corpuscular HGB Conc 32.6 GM/DL (32-36); Mean Corpuscular Hemoglobin 29 PG (27-34); Mean Platelet Volume 9.5 FL (9.6-12.0); Monocytes # 0.6 10*3/uL (0.11-0.8); Monocytes % 4.8 % (1.7-12.7); Neutrophils # 11.1 10*3/uL (1.4-7.4); Neutrophils % 85.7 % (38.7-73.9); Platelet Count 259 T/CUMM (130-400); Red Blood Count 4.42 MC/CUMM (3.8-5.5); Red Cell Distribution Width 13.1 % (9.3-17.3); White Blood Count 12.9 T/CUMM (4-12)
[2017-07-13 13:26] LABS: Hypochromasia 1+
[2017-07-13] MEDS ORDERED: [UNRECOGNIZED DRUG - OTHER] PO SCH (15:00)
[2017-07-13] MEDS: KETOROLAC 15 MG/1 ML VIAL IV SCH ×2 (16:53→18:21)
[2017-07-13] MEDS: PROMETHAZINE 25 MG/1 ML VIAL IM PRN (16:53)
[2017-07-13] MEDS ORDERED: ALBUTEROL 2.5 MG/3 ML NEB RESP TX PRN (19:00)
[2017-07-13] MEDS: ONDANSETRON 4 MG/2 ML VIAL IV PRN (19:14)
[2017-07-13] MEDS: FLUTICASONE/SALMETEROL 250-50 DISKUS 14 DOSE INH SCH (21:25)
[2017-07-13] MEDS: ALVIMOPAN 12 MG CAPSULE PO SCH (21:30)
[2017-07-14] MEDS: KETOROLAC 15 MG/1 ML VIAL IV SCH ×4 (00:54→19:24)
[2017-07-14] MEDS: ONDANSETRON 4 MG/2 ML VIAL IV PRN (00:55)
[2017-07-14] MEDS: PROMETHAZINE 25 MG/1 ML VIAL IM PRN ×2 (01:26→09:38)
[2017-07-14 05:22] LABS: Basophils % 0.2 % (0.0-0.8); Hematocrit 32.1 VOL% (35.7-47.0); Hemoglobin 10.8 GM/DL (12.0-16.0); Immature Granulocytes % 0.4 %; Immature Granulocytes Absolute 0.04 #; Lymphocytes # 1.4 10*3/uL (1.4-4.0); Lymphocytes % 15.4 % (21.3-54.2); Mean Corpuscular HGB Conc 33.6 GM/DL (32-36); Mean Corpuscular Hemoglobin 29 PG (27-34); Mean Corpuscular Volume 86.5 FL (87-102); Mean Platelet Volume 9.8 FL (9.6-12.0); Monocytes # 0.9 10*3/uL (0.11-0.8); Monocytes % 9.6 % (1.7-12.7); Neutrophils # 6.9 10*3/uL (1.4-7.4); Neutrophils % 74.4 % (38.7-73.9); Platelet Count 221 T/CUMM (130-400); Red Blood Count 3.71 MC/CUMM (3.8-5.5); Red Cell Distribution Width 13.1 % (9.3-17.3); White Blood Count 9.3 T/CUMM (4-12)
[2017-07-14 06:07] LABS: Calcium 8.2 MG/DL (8.5-10.1); Osmolality,Calculated 285.1 MOS/KG (273-304); Potassium 3.6 MMOL/L (3.5-5.1)
[2017-07-14] MEDS: ENOXAPARIN 40 MG/0.4 ML SYRINGE SUBCUT SCH (06:28)
[2017-07-14] MEDS ORDERED: ACETAMINOPHEN 325 MG TABLET PO PRN (08:13)
[2017-07-14] MEDS: MULTIVITAMIN (CENTRUM) TABLET PO SCH (11:12)
[2017-07-14] MEDS: PANTOPRAZOLE 40 MG TABLET PO SCH (11:12)
[2017-07-14] MEDS: ALVIMOPAN 12 MG CAPSULE PO SCH ×2 (11:13→21:28)
[2017-07-14] MEDS: POLYETHYLENE GLYCOL POWDER 17 GM PACK PO SCH (11:16)
[2017-07-14] MEDS: HYDROmorphone 2 MG/1 ML VIAL IV PRN (11:17)
[2017-07-14] MEDS: FLUTICASONE/SALMETEROL 250-50 DISKUS 14 DOSE INH SCH ×2 (11:37→21:30)
[2017-07-14 12:36] LABS: Hematocrit 31.1 VOL% (35.7-47.0); Hemoglobin 10.5 GM/DL (12.0-16.0)
[2017-07-15] MEDS: KETOROLAC 15 MG/1 ML VIAL IV SCH ×3 (00:12→12:26)
[2017-07-15 05:46] LABS: Basophils % 0.3 % (0.0-0.8); Eosinophils # 0.1 10*3/uL (0.0-0.87); Eosinophils % 1.8 % (0.00-10.9); Hematocrit 31.3 VOL% (35.7-47.0); Hemoglobin 10.5 GM/DL (12.0-16.0); Immature Granulocytes % 0.5 %; Immature Granulocytes Absolute 0.03 #; Lymphocytes # 1.5 10*3/uL (1.4-4.0); Lymphocytes % 24.3 % (21.3-54.2); Mean Corpuscular HGB Conc 33.5 GM/DL (32-36); Mean Corpuscular Hemoglobin 29 PG (27-34); Mean Platelet Volume 9.6 FL (9.6-12.0); Monocytes # 0.8 10*3/uL (0.11-0.8); Monocytes % 13.6 % (1.7-12.7); Neutrophils # 3.6 10*3/uL (1.4-7.4); Neutrophils % 59.5 % (38.7-73.9); Platelet Count 179 T/CUMM (130-400); Red Blood Count 3.64 MC/CUMM (3.8-5.5); Red Cell Distribution Width 13.1 % (9.3-17.3); White Blood Count 6.1 T/CUMM (4-12)
[2017-07-15 06:16] LABS: Eosinophils 1 % (0-10); Hypochromasia 1+; Lymphocytes 29 % (20-55); Platelet Estimate Normal; Segmented Neutrophils 54 % (50-85); Total Cells Counted 100
[2017-07-15 06:17] LABS: Giant Platelets Few; Ovalocytes Slight
[2017-07-15 06:19] LABS: Potassium 3.7 MMOL/L (3.5-5.1)
[2017-07-15] MEDS: ENOXAPARIN 40 MG/0.4 ML SYRINGE SUBCUT SCH (06:29)
[2017-07-15] MEDS: PANTOPRAZOLE 40 MG TABLET PO SCH (08:14)
[2017-07-15] MEDS: FLUTICASONE/SALMETEROL 250-50 DISKUS 14 DOSE INH SCH (08:14)
[2017-07-15] MEDS: MULTIVITAMIN (CENTRUM) TABLET PO SCH (08:14)
[2017-07-15] MEDS: POLYETHYLENE GLYCOL POWDER 17 GM PACK PO SCH (08:16)
[2017-07-15] MEDS: ALVIMOPAN 12 MG CAPSULE PO SCH (08:16)
[2017-07-15 11:48] VITALS: BP 123/81
[2017-07-20] MEDS ORDERED: CHOLECALCIFEROL PO SCH (09:00)
== END 2017-07-15 15:10 | disposition home or self-care (01) | DRG 331 ==
LOC: N.OR 06:02 → N.SDSINP 06:03 → N.3E 12:10
PROVIDERS: ADMIT Surgery; ATTEND Surgery

== ENCOUNTER 2017-07-23 10:06 | Observation (INO) ==
[2017-07-23] MEDS ORDERED: PROMETHAZINE 25 MG/1 ML VIAL IM PRN (11:35)
[2017-07-23] MEDS ORDERED: HYDROmorphone 2 MG/1 ML VIAL IV PRN (11:35)
[2017-07-23] MEDS ORDERED: LACTATED RINGERS 1,000 ML IV SCH (11:35)
[2017-07-23] MEDS ORDERED: ONDANSETRON 4 MG/2 ML VIAL IV PRN (11:35)
[2017-07-23] MEDS ORDERED: LACTATED RINGERS 1,000 ML IV ONE (11:35)
[2017-07-23 11:58] LABS: Basophils % 0.5 % (0.0-0.8); Eosinophils # 0.1 10*3/uL (0.0-0.87); Eosinophils % 1.9 % (0.00-10.9); Hematocrit 32.4 VOL% (35.7-47.0); Hemoglobin 10.6 GM/DL (12.0-16.0); Immature Granulocytes % 0.6 %; Immature Granulocytes Absolute 0.04 #; Lymphocytes # 1.4 10*3/uL (1.4-4.0); Lymphocytes % 21.6 % (21.3-54.2); Mean Corpuscular HGB Conc 32.7 GM/DL (32-36); Mean Corpuscular Hemoglobin 28 PG (27-34); Mean Corpuscular Volume 86.2 FL (87-102); Monocytes # 0.6 10*3/uL (0.11-0.8); Monocytes % 9.9 % (1.7-12.7); Neutrophils # 4.3 10*3/uL (1.4-7.4); Neutrophils % 65.5 % (38.7-73.9); Platelet Count 349 T/CUMM (130-400); Red Blood Count 3.76 MC/CUMM (3.8-5.5); Red Cell Distribution Width 12.5 % (9.3-17.3); White Blood Count 6.5 T/CUMM (4-12)
[2017-07-23 12:02] VITALS: BP 120/74
[2017-07-23 12:17] LABS: Calcium 8.9 MG/DL (8.5-10.1); Potassium 3.7 MMOL/L (3.5-5.1)
[2017-07-23] MEDS ORDERED: ALBUTEROL 2.5 MG/3 ML NEB RESP TX PRN (12:39)
[2017-07-23] MEDS ORDERED: tiZANidine 4 MG TABLET PO PRN (12:39)
[2017-07-23 13:50] LABS: Apearance,Urine CLEAR (Clear); Bilirubin,Urine Negative (Negative); Blood, Urine Moderate mg/dL (Negative); Glucose,Urine (UA) Negative (Negative); Ketones,Urine Negative (Negative); Nitrite,Urine Negative (Negative); Protein,Urine Negative; RBC,Urine <1 /HPF (0-4); Urine Color Colorless (Yellow); Urine Specific Gravity 1.001 (1.001-1.035); Urine Urobilinogen < 2.0 EU/DL (0.2-1.0); WBC,Urine <1 /HPF (0-6)
[2017-07-23] MEDS ORDERED: [UNRECOGNIZED DRUG - OTHER] PO SCH (15:00)
[2017-07-23] MEDS ORDERED: FLUTICASONE/SALMETEROL 250-50 DISKUS 14 DOSE INH SCH (21:00)
[2017-07-24] MEDS ORDERED: ENOXAPARIN 40 MG/0.4 ML SYRINGE SUBCUT SCH (06:00)
[2017-07-24] MEDS ORDERED: PANTOPRAZOLE 40 MG VIAL IV SCH (09:00)
[2017-07-24] MEDS ORDERED: POLYETHYLENE GLYCOL POWDER 17 GM PACK PO SCH (09:00)
== END 2017-07-23 18:20 | disposition home or self-care (01) ==
LOC: N.3E 10:54 → INTOOBSV 10:54
PROVIDERS: ADMIT Surgery; ATTEND Surgery

== ENCOUNTER 2017-07-25 12:12 | Inpatient (IN) ==
[2017-07-25] MEDS ORDERED: SODIUM CHLORIDE 0.9% 1,000 ML IV STA (13:11)
[2017-07-25] MEDS ORDERED: ONDANSETRON 4 MG/2 ML VIAL IV STA (13:11)
[2017-07-25] MEDS ORDERED: THIAMINE INJ 100 MG, FOLIC ACID INJ 1 MG, MAGNESIUM SULF INJ 2 GM, MULTIVITAMIN INJ 10 ... IV ONE (13:12)
[2017-07-25] MEDS ORDERED: ONDANSETRON 4 MG/2 ML VIAL ONE (13:27)
[2017-07-25 14:15] LABS: Basophils % 0.3 % (0.0-0.8); Hematocrit 32.4 VOL% (35.7-47.0); Hemoglobin 11.1 GM/DL (12.0-16.0); Immature Granulocytes % 1.8 %; Immature Granulocytes Absolute 0.13 #; Lymphocytes # 0.9 10*3/uL (1.4-4.0); Lymphocytes % 11.9 % (21.3-54.2); Mean Corpuscular HGB Conc 34.3 GM/DL (32-36); Mean Corpuscular Hemoglobin 29 PG (27-34); Mean Corpuscular Volume 84.2 FL (87-102); Mean Platelet Volume 9.2 FL (9.6-12.0); Monocytes # 0.3 10*3/uL (0.11-0.8); Monocytes % 4.3 % (1.7-12.7); Neutrophils # 5.8 10*3/uL (1.4-7.4); Neutrophils % 81.7 % (38.7-73.9); Platelet Count 339 T/CUMM (130-400); Red Blood Count 3.85 MC/CUMM (3.8-5.5); Red Cell Distribution Width 12.4 % (9.3-17.3); White Blood Count 7.2 T/CUMM (4-12)
[2017-07-25 14:30] LABS: Calcium 8.9 MG/DL (8.5-10.1); Osmolality,Calculated 284.1 MOS/KG (273-304); Potassium 3.6 MMOL/L (3.5-5.1)
[2017-07-25] MEDS ORDERED: ACETAMINOPHEN 325 MG TABLET PO PRN (15:52)
[2017-07-25] MEDS ORDERED: ONDANSETRON 4 MG/2 ML VIAL IV PRN (15:52)
[2017-07-25] MEDS: cefOXitin 2,000 MG in SYRINGE 1 EACH IV SCH (19:45)
[2017-07-26] MEDS: cefOXitin 2,000 MG in SYRINGE 1 EACH IV SCH ×3 (01:25→14:10)
[2017-07-26 08:01] LABS: Calcium 8.3 MG/DL (8.5-10.1); Osmolality,Calculated 278.4 MOS/KG (273-304); Potassium 3.6 MMOL/L (3.5-5.1)
[2017-07-26] MEDS ORDERED: PANTOPRAZOLE 40 MG TABLET PO SCH (09:00)
[2017-07-26 12:00] VITALS: BP 127/70
== END 2017-07-26 17:05 | disposition home health service (06) | DRG 392 ==
LOC: N.ED 12:12 → N.EDINP 15:52 → N.3E 17:25
PROVIDERS: ADMIT Surgery; ATTEND Surgery

== ENCOUNTER 2017-12-01 10:15 | Inpatient (IN) ==
[2017-12-01] MEDS ORDERED: SODIUM CHLORIDE 0.9% 1,000 ML IV STA (10:49)
[2017-12-01 11:36] LABS: Apearance,Urine CLEAR (Clear); Bilirubin,Urine Negative (Negative); Blood, Urine Moderate mg/dL (Negative); Glucose,Urine (UA) Negative (Negative); Ketones,Urine Negative (Negative); Mucus,Urine Occasional /LPF (Occasional); Nitrite,Urine Negative (Negative); Protein,Urine Negative; RBC,Urine 3 /HPF (0-4); Squamous Epithelial Cell,Urine Occasional /HPF (0-10); Urine Color Yellow (Yellow); Urine Specific Gravity 1.009 (1.001-1.035); Urine Urobilinogen < 2.0 EU/DL (0.2-1.0); WBC,Urine 1 /HPF (0-6)
[2017-12-01] MEDS ORDERED: MORPHINE 4 MG/1 ML VIAL IV STA (11:37)
[2017-12-01] MEDS ORDERED: MORPHINE 4 MG/1 ML VIAL ONE (11:38)
[2017-12-01 11:42] LABS: Basophils % 0.3 % (0.0-0.8); Eosinophils # 0.1 10*3/uL (0.0-0.87); Hematocrit 35.8 VOL% (35.7-47.0); Immature Granulocytes % 0.3 %; Immature Granulocytes Absolute 0.02 #; Lymphocytes # 1.8 10*3/uL (1.4-4.0); Lymphocytes % 24.8 % (21.3-54.2); Mean Corpuscular HGB Conc 33.5 GM/DL (32-36); Mean Corpuscular Hemoglobin 28 PG (27-34); Mean Corpuscular Volume 84.2 FL (87-102); Mean Platelet Volume 9.7 FL (9.6-12.0); Monocytes # 0.6 10*3/uL (0.11-0.8); Monocytes % 8.7 % (1.7-12.7); Neutrophils # 4.6 10*3/uL (1.4-7.4); Neutrophils % 63.9 % (38.7-73.9); Platelet Count 222 T/CUMM (130-400); Red Blood Count 4.25 MC/CUMM (3.8-5.5); Red Cell Distribution Width 13.6 % (9.3-17.3); White Blood Count 7.1 T/CUMM (4-12)
[2017-12-01 12:10] LABS: Alanine Aminotransferase 16 U/L (13-56); Albumin 3.3 G/DL (3.4-5.0); Alkaline Phosphatase 100 U/L (45-117); Amylase 80 U/L (25-115); Aspartate Amino Transferase 15 U/L (0-37); Bilirubin,Total < 0.39 MG/DL (0.2-1.0); Blood Urea Nitrogen 10 MG/DL (7-18); Calcium 8.8 MG/DL (8.5-10.1); Glucose 127 MG/DL (74-106); Potassium 3.7 MMOL/L (3.5-5.1); Sodium 143 MMOL/L (136-145); Total Protein 7.4 G/DL (6.4-8.3)
[2017-12-01 12:36] LABS: Hypochromasia 2+; Microcytosis 1+
[2017-12-01] MEDS ORDERED: ONDANSETRON 4 MG/2 ML VIAL IV PRN (13:43)
[2017-12-01] MEDS ORDERED: HYDROmorphone 2 MG/1 ML VIAL IV PRN (13:43)
[2017-12-01] MEDS ORDERED: LACTATED RINGERS 1,000 ML IV SCH (14:00)
[2017-12-01] MEDS ORDERED: cefOXitin 2,000 MG in SYRINGE 1 EACH IV ONE (15:52)
[2017-12-01] MEDS: LACTATED RINGERS 1,000 ML IV SCH (18:43)
[2017-12-01] MEDS: ONDANSETRON 4 MG/2 ML VIAL IV PRN (21:52)
[2017-12-01] MEDS: HYDROmorphone 2 MG/1 ML VIAL IV PRN (21:57)
[2017-12-01] MEDS: cefOXitin 2,000 MG in SYRINGE 1 EACH IV SCH (22:00)
[2017-12-02] MEDS: ONDANSETRON 4 MG/2 ML VIAL IV PRN (04:25)
[2017-12-02] MEDS: HYDROmorphone 2 MG/1 ML VIAL IV PRN (04:28)
[2017-12-02] MEDS: cefOXitin 2,000 MG in SYRINGE 1 EACH IV SCH (04:30)
[2017-12-02] MEDS: LACTATED RINGERS 1,000 ML IV SCH (04:34)
[2017-12-02 06:39] VITALS: BP 105/65
[2017-12-02] MEDS ORDERED: AMOXICILLIN/CLAV 875 MG TABLET PO SCH (09:30)
== END 2017-12-02 10:45 | disposition home or self-care (01) | DRG 392 ==
LOC: N.ED 10:15 → N.EDINP 13:43 → N.3E 14:45
PROVIDERS: ADMIT Surgery; ATTEND Surgery

== ENCOUNTER 2019-06-04 15:11 | Inpatient (IN) ==
[2019-06-04] MEDS ORDERED: ALUM/MAG/SIMETH/LIDO VISC 1:1 30 ML BOTTLE PO STA (16:11)
[2019-06-04 16:17] LABS: Basophils % 0.4 % (0.0-0.8); Eosinophils # 0.1 10*3/uL (0.0-0.87); Eosinophils % 2.3 % (0.00-10.9); Hemoglobin 12.8 GM/DL (12.0-16.0); Immature Granulocytes % 0.2 %; Immature Granulocytes Absolute 0.01 #; Lymphocytes # 2.2 10*3/uL (1.4-4.0); Lymphocytes % 38.7 % (21.3-54.2); Mean Corpuscular HGB Conc 33.7 GM/DL (32-36); Mean Platelet Volume 10.3 FL (9.6-12.0); Monocytes % 10.6 % (1.7-12.7); Neutrophils % 47.8 % (38.7-73.9); Platelet Count 244 T/CUMM (130-400); Red Blood Count 4.42 MC/CUMM (3.8-5.5); Red Cell Distribution Width 12.6 % (9.3-17.3); White Blood Count 5.7 T/CUMM (4-12)
[2019-06-04 16:25] LABS: PT Patient Result 10.7 SECS (9.6-12.2); Partial Thromboplastin Time 26.2 SECS (20.8-36.0)
[2019-06-04 16:39] LABS: Alanine Aminotransferase 26 U/L (13-56); Albumin 3.7 G/DL (3.4-5.0); Alkaline Phosphatase 94 U/L (45-117); Amylase 109 U/L (25-115); Aspartate Amino Transferase 20 U/L (0-37); Blood Urea Nitrogen 16 MG/DL (7-18); Calcium 8.7 MG/DL (8.5-10.1); Estimated Glom Filtration Rate 102 ML/MIN; Glucose 142 MG/DL (74-106); Total Protein 7.9 G/DL (6.4-8.3); Troponin I < 0.015 NG/ML (0.00-0.045)
[2019-06-04 17:29] LABS: Apearance,Urine CLEAR (Clear); Bilirubin,Urine Negative (Negative); Blood, Urine Moderate mg/dL (Negative); Glucose,Urine (UA) Negative (Negative); Ketones,Urine Negative (Negative); Mucus,Urine Occasional /LPF (Occasional); Nitrite,Urine Negative (Negative); Protein,Urine Negative; RBC,Urine 4 /HPF (0-4); Squamous Epithelial Cell,Urine Occasional /HPF (0-10); Urine Color Yellow (Yellow); Urine Specific Gravity 1.013 (1.001-1.035); Urine Urobilinogen < 2.0 EU/DL (0.2-1.0); WBC,Urine 2 /HPF (0-6)
[2019-06-04] MEDS ORDERED: PIPERACILLIN/TAZOBACTAM 3,375 MG in SODIUM CHLORIDE 0.9% 100 ML IV STA (17:34)
[2019-06-04] MEDS ORDERED: PIPERACILLIN/TAZOBACTAM 3,375 MG VIAL IV ONE (18:27)
[2019-06-04] MEDS ORDERED: SODIUM CHLORIDE 0.9% 100 ML IV ONE (18:28)
[2019-06-04] MEDS ORDERED: MORPHINE 4 MG/1 ML VIAL IV PRN (19:06)
[2019-06-04] MEDS ORDERED: ONDANSETRON 4 MG/2 ML VIAL IV PRN (19:06)
[2019-06-04] MEDS: LACTATED RINGERS 1,000 ML IV SCH (19:40)
[2019-06-05] MEDS ORDERED: PIPERACILLIN/TAZOBACTAM 3,375 MG in SODIUM CHLORIDE 0.9% 100 ML IV SCH (02:00)
[2019-06-05] MEDS: LACTATED RINGERS 1,000 ML IV SCH (07:27)
[2019-06-05] MEDS ORDERED: CLINDAMYCIN INJ 900 MG in PREMIX 1 EACH IV ONE (07:32)
[2019-06-05] MEDS ORDERED: ENOXAPARIN 40 MG/0.4 ML SYRINGE SUBCUT SCH (08:00)
[2019-06-05] MEDS ORDERED: PANTOPRAZOLE 40 MG TABLET PO SCH (09:00)
[2019-06-05] MEDS ORDERED: INSULIN REGULAR 100 UNIT/ML SUBCUT SCH (11:30)
[2019-06-05 13:32] VITALS: BP 135/86
== END 2019-06-05 13:45 | disposition home or self-care (01) | DRG 395 ==
LOC: N.ED 15:11 → N.EDINP 17:38 → N.3E 19:02
PROVIDERS: ADMIT Surgery; ATTEND Surgery

== ENCOUNTER 2020-08-14 04:41 | Observation (INO) ==
[2020-08-14] MEDS ORDERED: MORPHINE 4 MG/1 ML VIAL IV STA (05:05)
[2020-08-14] MEDS ORDERED: ONDANSETRON 4 MG/2 ML VIAL IV STA ×2 (05:05→07:34)
[2020-08-14] MEDS ORDERED: SODIUM CHLORIDE 0.9% 1,000 ML IV STA (05:05)
[2020-08-14 05:40] LABS: Basophils % 0.4 % (0.0-0.8); Eosinophils # 0.1 10*3/uL (0.0-0.87); Eosinophils % 1.4 % (0.00-10.9); Hematocrit 38.5 VOL% (35.7-47.0); Hemoglobin 12.8 GM/DL (12.0-16.0); Immature Granulocytes % 0.5 %; Immature Granulocytes Absolute 0.04 #; Lymphocytes # 1.6 10*3/uL (1.4-4.0); Lymphocytes % 20.8 % (21.3-54.2); Mean Corpuscular HGB Conc 33.2 GM/DL (32-36); Mean Corpuscular Volume 85.9 FL (87-102); Monocytes % 9.2 % (1.7-12.7); Neutrophils % 67.7 % (38.7-73.9); Platelet Count 220 T/CUMM (130-400); Red Blood Count 4.48 MC/CUMM (3.8-5.5); White Blood Count 7.7 T/CUMM (4-12)
[2020-08-14 05:47] LABS: Bilirubin,Urine Negative (Negative); Blood, Urine Moderate mg/dL (Negative); Glucose,Urine (UA) Negative (Negative); Ketones,Urine Negative (Negative); Mucus,Urine Occasional /LPF (Occasional); Nitrite,Urine Negative (Negative); Protein,Urine Negative; RBC,Urine 6 /HPF (0-4); Squamous Epithelial Cell,Urine Occasional /HPF (0-10); Urine Appearance CLEAR (Clear); Urine Color Yellow (Yellow); Urine Specific Gravity 1.012 (1.001-1.035); Urine Urobilinogen < 2.0 EU/DL (0.2-1.0); WBC,Urine 8 /HPF (0-6)
[2020-08-14 05:59] LABS: Alanine Aminotransferase 21 U/L (13-56); Albumin 3.7 G/DL (3.4-5.0); Alkaline Phosphatase 93 U/L (45-117); Aspartate Amino Transferase 16 U/L (0-37); Bilirubin,Total < 0.39 MG/DL (0.2-1.0); Blood Urea Nitrogen 9 MG/DL (7-18); Calcium 8.7 MG/DL (8.5-10.1); Carbon Dioxide 24 MMOL/L (21-32); Estimated Glom Filtration Rate 89 ML/MIN; Glucose 194 MG/DL (74-106); Osmolality,Calculated 278.7 MOS/KG (273-304); Potassium 3.9 MMOL/L (3.5-5.1); Sodium 138 MMOL/L (136-145); Total Protein 7.6 G/DL (5.0-7.5)
[2020-08-14] MEDS ORDERED: CLINDAMYCIN INJ 900 MG in PREMIX 1 EACH IV ONE (07:12)
[2020-08-14] MEDS ORDERED: HYDROmorphone 2 MG/1 ML VIAL IV STA (07:34)
[2020-08-14] MEDS ORDERED: PROMETHAZINE 25 MG/1 ML VIAL IM PRN (08:42)
[2020-08-14] MEDS ORDERED: MIDAZOLAM 2 MG/2 ML VIAL ONE (08:43)
[2020-08-14] MEDS ORDERED: fentaNYL 100 MCG/2 ML VIAL ONE ×3 (08:43→10:46)
[2020-08-14] MEDS ORDERED: ROCURONIUM 50 MG/5 ML VIAL IV ONE (08:44)
[2020-08-14] MEDS ORDERED: LIDOCAINE 2% 5 ML VIAL ONE (08:44)
[2020-08-14] MEDS ORDERED: propofoL 200 MG/20 ML VIAL IV ONE (08:44)
[2020-08-14] MEDS ORDERED: SEVOFLURANE 1 UNIT/15 MINUTE INH ONE ×9 (08:47→12:20)
[2020-08-14] MEDS ORDERED: LIDOCAINE 1%/EPI INJ 20 ML VIAL ONE (08:49)
[2020-08-14] MEDS ORDERED: BUPIVACAINE MPF 0.25% 30 ML VIAL ONE ×2 (08:49→09:04)
[2020-08-14] MEDS: LACTATED RINGERS 1,000 ML IV SCH ×2 (08:50→16:04)
[2020-08-14] MEDS ORDERED: TISSUE ADHESIVE 1 EACH APPLICATOR TOP ONE ×2 (08:54→12:11)
[2020-08-14] MEDS ORDERED: LIDOCAINE 1% 5 ML VIAL ONE (09:04)
[2020-08-14] MEDS ORDERED: PNEUMOCOCCAL VACCINE (13 VALENT) 0.5 ML SYRINGE IM ONE (09:08)
[2020-08-14] MEDS: PANTOPRAZOLE 40 MG TABLET PO SCH (09:44)
[2020-08-14] MEDS ORDERED: ceFAZolin 1,000 MG VIAL ONE ×2 (10:01)
[2020-08-14] MEDS ORDERED: METOPROLOL TARTRATE 5 MG/5 ML VIAL IV ONE (11:42)
[2020-08-14] MEDS ORDERED: NEOSTIGMINE 10 MG/10 ML VIAL ONE ×2 (12:03→12:04)
[2020-08-14] MEDS ORDERED: GLYCOPYRROLATE 0.4 MG/2 ML VIAL ONE (12:03)
[2020-08-14] MEDS ORDERED: diphenhydrAMINE CAP 25 MG CAPSULE PO PRN (12:09)
[2020-08-14] MEDS ORDERED: ZALEPLON 5 MG CAPSULE PO PRN (12:09)
[2020-08-14] MEDS ORDERED: tiZANidine 4 MG TABLET PO PRN (12:09)
[2020-08-14] MEDS ORDERED: GLUCAGON 1 MG VIAL IM PRN (12:26)
[2020-08-14] MEDS ORDERED: DEXTROSE 50% 25 GM/50 ML VIAL IV PRN (12:26)
[2020-08-14] MEDS ORDERED: ONDANSETRON 4 MG/2 ML VIAL IV PRN (12:55)
[2020-08-14] MEDS: HYDROmorphone 2 MG/1 ML VIAL IV PRN ×4 (13:00→13:20)
[2020-08-14] MEDS: METOPROLOL SUCCINATE XL 25 MG TABLET PO SCH (14:23)
[2020-08-14] MEDS: INSULIN REGULAR 100 UNIT/ML SUBCUT SCH ×2 (16:02→21:02)
[2020-08-14] MEDS: KETOROLAC 15 MG/1 ML VIAL IV PRN ×2 (17:00→23:30)
[2020-08-14] MEDS: FLUTICASONE/SALMETEROL 250-50 DISKUS 14 DOSE INH SCH ×3 (21:02→21:07)
[2020-08-15] MEDS: LACTATED RINGERS 1,000 ML IV SCH (00:09)
[2020-08-15] MEDS: ONDANSETRON 4 MG/2 ML VIAL IV PRN ×3 (03:33→12:26)
[2020-08-15] MEDS: ACETAMINOPHEN 325 MG TABLET PO PRN (03:36)
[2020-08-15] MEDS: MULTIVITAMIN (CENTRUM) TABLET PO SCH (08:09)
[2020-08-15] MEDS: POLYETHYLENE GLYCOL POWDER 17 GM PACK PO SCH (08:09)
[2020-08-15] MEDS: PANTOPRAZOLE 40 MG TABLET PO SCH ×2 (08:10)
[2020-08-15] MEDS: HYDROmorphone 2 MG/1 ML VIAL IV PRN (08:10)
[2020-08-15] MEDS: METOPROLOL SUCCINATE XL 25 MG TABLET PO SCH (08:10)
[2020-08-15] MEDS: INSULIN REGULAR 100 UNIT/ML SUBCUT SCH ×4 (08:11→20:36)
[2020-08-15] MEDS: FLUTICASONE/SALMETEROL 250-50 DISKUS 14 DOSE INH SCH ×2 (08:11→20:35)
[2020-08-15] MEDS: POTASSIUM CHLORIDE INJ 40 MEQ in SODIUM CHLORIDE 0.45% 1,000 ML IV SCH ×2 (09:18→16:55)
[2020-08-15] MEDS: KETOROLAC 15 MG/1 ML VIAL IV PRN (12:25)
[2020-08-16] MEDS: ACETAMINOPHEN 325 MG TABLET PO PRN ×2 (04:37→11:58)
[2020-08-16] MEDS: ONDANSETRON 4 MG/2 ML VIAL IV PRN ×2 (05:25→12:02)
[2020-08-16] MEDS: HYDROmorphone 2 MG/1 ML VIAL IV PRN (07:59)
[2020-08-16] MEDS: POLYETHYLENE GLYCOL POWDER 17 GM PACK PO SCH (09:06)
[2020-08-16] MEDS: METOPROLOL SUCCINATE XL 25 MG TABLET PO SCH (09:08)
[2020-08-16] MEDS: MULTIVITAMIN (CENTRUM) TABLET PO SCH (09:09)
[2020-08-16] MEDS: PANTOPRAZOLE 40 MG TABLET PO SCH ×2 (09:09→09:10)
[2020-08-16] MEDS: FLUTICASONE/SALMETEROL 250-50 DISKUS 14 DOSE INH SCH (09:10)
[2020-08-16] MEDS: INSULIN REGULAR 100 UNIT/ML SUBCUT SCH ×3 (09:14→17:58)
[2020-08-16 13:34] VITALS: BP 155/67
[2020-08-18] MEDS ORDERED: ERGOCALCIFEROL 50,000 UNIT CAPSULE PO SCH (09:00)
== END 2020-08-16 17:55 | disposition home or self-care (01) ==
LOC: N.ED 04:41 → N.EDINP 04:41 → N.TELEN 07:55
PROVIDERS: ADMIT Surgery; ATTEND Surgery